=== PATIENT | male | born 1935 | race Caucasian/White ===

== ENCOUNTER 2020-04-13 08:22 | Outpatient (REF) | payer MEDICARE, SELFPAY ==
[2020-04-13 10:24] LABS: MANUAL DIFF FLAG NO
[2020-04-13 10:30] LABS: Basophils Percent Auto 0.5 % (0-2); Eosinophils Absolute Auto 0.2 X10*3/uL (0.0-0.4); Eosinophils Percent Auto 3.7 % (0-4); Hematocrit 45.6 % (42-52); Hemoglobin 15.4 g/dl (14.0-18.0); Imm Gran Abs Auto 0.01 X10*3/uL (0.00-0.03); Imm Gran Pct Auto 0.2 % (0.0-0.4); Lymphocytes Absolute Auto 1.8 X10*3/uL (1.2-4.9); Lymphocytes Percent Auto 26.8 % (20-40); Mean Corpuscular HGB Conc 33.8 g/dl (31.0-36.0); Mean Corpuscular Hemoglobin 31.5 pg (27.0-33.0); Mean Corpuscular Volume 93.3 fL (80-98); Mean Platelet Volume 10.4 fL (9.4-12.4); Monocytes Absolute Auto 0.5 X10*3/uL (0.1-1.2); Monocytes Percent Auto 7.4 % (2-11); Neutrophils Percent Auto 61.4 % (45-73); Platelet Count 168 X10*3/uL (160-400); Red Blood Count 4.89 X10*6/uL (4.60-5.80); Red Cell Distribution Width 12.2 % (11.0-16.0); White Blood Count 6.5 X10*3/uL (4.8-10.8)
[2020-04-13 11:12] LABS: Alanine Aminotransferase 17 U/L (0-40); Albumin Level 4.4 g/dL (3.5-5.0); Alkaline Phosphatase 46 U/L (39-117); Anion Gap 14 (12-20); Aspartate Amino Transferase 22 U/L (5-37); Bilirubin Total 0.8 mg/dL (0.0-1.0); Blood Urea Nitrogen 28 mg/dL (9-16); Carbon Dioxide 31 mmol/L (22-29); Chloride 103 mmol/L (96-108); Cholesterol 159 mg/dL; Estimated Glomerular Filt Rate > 60; Glucose Fasting 92 mg/dL (60-99); HDL Cholesterol 52 mg/dL; LDL Cholesterol Calculated 93 mg/dl; Potassium 3.9 mmol/L (3.3-5.1); Sodium 144 mmol/L (135-145); Triglycerides 71 mg/dL
== END 2020-04-13 08:23 | disposition home or self-care (01) ==
LOC: HO.10HDL 08:22
PROVIDERS: Visit Provider Internal Medicine
DX: Z00.00 Encounter for general adult medical examination without abnormal findings (principal); E11.9 Type 2 diabetes mellitus without complications
CPT/HCPCS: 36415; 80053; 80061; 85025

== ENCOUNTER 2021-01-17 06:20 | Outpatient (REF) | payer MEDICARE, SELFPAY ==
[2021-01-17 08:17] LABS: Cholesterol 142 mg/dL; HDL Cholesterol 55 mg/dL; LDL Cholesterol Calculated 71 mg/dl; Triglycerides 80 mg/dL
== END 2021-01-17 06:21 | disposition home or self-care (01) ==
LOC: HO.LAB 06:20
PROVIDERS: PCP Internal Medicine; Visit Provider Internal Medicine
DX: E11.9 Type 2 diabetes mellitus without complications (principal)
CPT/HCPCS: 36415; 80061

== ENCOUNTER 2021-07-17 06:49 | Outpatient (REF) | payer MEDICARE, SELFPAY ==
[2021-07-17 08:03] LABS: Cholesterol 140 mg/dL; HDL Cholesterol 46 mg/dL; LDL Cholesterol Calculated 74 mg/dl; Triglycerides 103 mg/dL
== END 2021-07-17 06:50 | disposition home or self-care (01) ==
LOC: HO.LAB 06:49
PROVIDERS: PCP Internal Medicine; Visit Provider Internal Medicine
DX: Z00.00 Encounter for general adult medical examination without abnormal findings (principal); E78.5 Hyperlipidemia, unspecified
CPT/HCPCS: 36415; 80061

== ENCOUNTER 2021-12-14 08:48 | Emergency (ER) | payer MEDICARE, SELFPAY ==
[2021-12-14] VITALS (8 sets, daily range): BP systolic 158–199; BP diastolic 69–88; PULSE 66–89; RESP 13–19; TEMP 36.1–36.4; O2SAT 93–97; BMI 25.8
--- NOTE | ~2021-12-14 | CT_ITS ---
EXAMINATION: CT HEAD WITHOUT CONTRAST CLINICAL INFORMATION: Intermittent room spinning. Dizziness. Fatigue. COMPARISON: None available. TECHNIQUE: Contiguous axial imaging was performed from the skull base to vertex without intravenous administration of contrast. This CT examination was performed using dose optimization techniques as appropriate, variously including the following: *Automated exposure control. *Adjustment of mA and/or kV according to patient size (this includes techniques or standardized protocols for targeted exams where dose is matched to indication/reason for exam; i.e. extremities or head). *Use of iterative reconstruction technique. DLP: 717 mGy-cm FINDINGS: There is no evidence of acute intracranial hemorrhage or edematous territorial infarction. Hilton-white matter differentiation is preserved. Scattered and partially confluent hypoattenuation in the periventricular and deep white matter are consistent with moderate microangiopathy. Proportional prominence of the ventricles and sulcal spaces without evidence of obstructive hydrocephalus. No abnormal mass effect or midline shift. The suprasellar cistern remains widely patent. Normal positioning of the cerebellar tonsils. No extra-axial fluid collections. No acute soft tissue or osseous abnormalities. Mild mucosal thickening of the paranasal sinuses. The mastoid air cells and middle ear cavities are clear. CT/CT head/brain wo IV con IMPRESSION: 1. No evidence of acute intracranial hemorrhage or edematous territorial infarction. 2. Moderate underlying microangiopathy and generalized cerebral volume loss.
--- NOTE | ~2021-12-14 | XR_ITS ---
EXAMINATION: XR CHEST CLINICAL INFORMATION: Fatigue COMPARISON: None TECHNIQUE: 2 views of the chest were obtained. FINDINGS: No significant abnormality is noted involving the heart, lungs, mediastinum, bony thorax or soft tissues. XR/XR chest 2V IMPRESSION: Unremarkable chest examination.
--- NOTE | 2021-12-14 08:56 | ECG_ITS ---
Test Reason : HIGH BP Blood Pressure : / mmHG Vent. Rate : 084 BPM Atrial Rate : 084 BPM P-R Int : 160 ms QRS Dur : 106 ms QT Int : 390 ms P-R-T Axes : 065 -35 081 degrees QTc Int : 460 ms Normal sinus rhythm Intra-ventricular conduction delay Left anterior fascicular block Minimal voltage criteria for LVH, may be normal variant ( R in aVL ) Abnormal ECG When compared with ECG of 12-MAR-2010 13:03, QRS duration has increased Referred By: Generic ED Physician Electronically Signed By:MEGHAN GARCIA MD
[2021-12-14 09:23] LABS: MANUAL DIFF FLAG NO
[2021-12-14 09:24] LABS: Basophils Percent Auto 0.6 % (0-2); Eosinophils Absolute Auto 0.1 X10*3/uL (0.0-0.4); Eosinophils Percent Auto 1.6 % (0-4); Hematocrit 46.8 % (42.0-52.0); Hemoglobin 15.9 g/dl (14.0-18.0); Imm Gran Abs Auto 0.02 X10*3/uL (0.00-0.03); Imm Gran Pct Auto 0.3 % (0.0-0.4); Lymphocytes Absolute Auto 1.4 X10*3/uL (1.2-4.9); Lymphocytes Percent Auto 19.7 % (20-40); Mean Corpuscular Hemoglobin 31.2 pg (27.0-33.0); Mean Corpuscular Volume 91.9 fL (80.0-98.0); Mean Platelet Volume 9.6 fL (9.4-12.4); Monocytes Absolute Auto 0.5 X10*3/uL (0.1-1.2); Monocytes Percent Auto 7.6 % (2-11); Neutrophils Absolute Auto 4.9 x10*3/uL (2.0-8.3); Neutrophils Percent Auto 70.2 % (45-73); Platelet Count 159 X10*3/uL (160-400); Red Blood Count 5.09 X10*6/uL (4.60-5.80); Red Cell Distribution Width 12.1 % (11.0-16.0)
[2021-12-14 09:37] LABS: COVID-19 Test Negative (Negative)
[2021-12-14 09:43] LABS: Alanine Aminotransferase 15 U/L (0-40); Albumin Level 4.6 g/dL (3.5-5.0); Alkaline Phosphatase 52 U/L (39-117); Anion Gap 17 (12-20); Aspartate Amino Transferase 21 U/L (5-37); Bilirubin Total 0.7 mg/dL (0.0-1.0); Blood Urea Nitrogen 20 mg/dL (9-16); Calcium 9.6 mg/dL (8.4-10.2); Carbon Dioxide 31 mmol/L (22-29); Chloride 98 mmol/L (96-108); Creatinine Clr Calc Pharmacy 47.8; Estimated Glomerular Filt Rate > 60; Glucose Random 132 mg/dL (60-115); Potassium 4.1 mmol/L (3.3-5.1); Sodium 142 mmol/L (135-145); Total Protein 7.4 g/dL (6.5-8.0)
[2021-12-14 09:49] LABS: Troponin-I High Sensitivity < 3.5 ng/L (<3.5-35.0)
--- NOTE | 2021-12-14 09:56 | ED_ITS ---
HPI - General Adult General Chief complaint: General Medical Stated complaint: high bp Time Seen by Provider: 12/14/21 09:44 Source: patient Mode of arrival: ambulatory History of Present Illness HPI narrative: 86-year-old male with a past medical history of vertigo, HLD, HTN, recent sinusitis treated with Flonase at 10 days ago, presenting to the ED complaining of generalized fatigue/weakness, malaise, and intermittent room spinning dizziness worse with position changes/bending over x days. reports patient's BP has been elevated 160's/60's and appetite has decreased. Patient states he just does not feel right. Denies headache, vision change/loss, chest pain, shortness of, abdominal pain, nausea/vomiting, recent travel, fever Onset (ago): day(s) Related Data Home Medications Medication Instructions Recorded Confirmed aspirin 81 mg tablet,delayed 81 mg PO DAILY 01/03/20 12/14/21 release fluticasone propionate 50 1 spray intranasal BID allergies 12/14/21 12/14/21 mcg/actuation nasal spray,suspension hydrochlorothiazide 25 mg tablet 1 tab PO DAILY 12/14/21 12/14/21 lovastatin 40 mg tablet 1 tab PO DAILY 12/14/21 12/14/21 Previous Rx's Medication Instructions Recorded meclizine 25 mg tablet 25 mg PO TID PRN dizziness #14 tabs 12/14/21 Allergies Allergy/AdvReac Type Severity Reaction Status Date / Time methylprednisolone Allergy Unknown HIVES Verified 07/19/21 08:18 [METHYLPREDNISOLONE] Review of Systems Review of Systems: Constitutional: No Fever, No Chills, + Fatigue, + Malaise ENT/Mouth: No Hearing loss, No Ear Pain, No Nasal Congestion, No Sinus Pain, No sore throat, No Rhinorrhea, No Swallowing Difficulty Eyes: No Eye Pain, No Swelling, No Redness, No Foreign Body, No Discharge, No Vision Changes Cardiovascular: No Chest Pain, No SOB, No Dyspnea on Exertion, No Orthopnea, No Edema, No Palpitations Respiratory: No Cough, No Sputum, No Dyspnea Gastrointestinal: No Nausea, No Vomiting, No Diarrhea, No Constipation, No Abdominal pain Genitourinary: No Dysuria, No Urinary Frequency, No Hematuria, No Flank Pain, No Urinary Flow Changes Musculoskeletal: No joint pain, No Myalgias, No Joint Swelling Skin: No Skin Lesions, No rash Neuro: + Weakness, No Numbness, No Paresthesias, No Loss of Consciousness, + Dizziness, No Headache Yes all other systems are reviewed and are negative Constitutional: Constitutional: Reports as per HPI Neurologic: Denies Abnormal speech present and Denies Sensory deficit (Neuro) FOR[facility]LY [facility], [facility] Past Medical History Attestation statement: The following information was validated with the patient. Medical History Hyperlipidemia Hypertension Lesion of right earlobe Surgical History H/O basal cell carcinoma excision H/O excision of ganglion cyst History of inguinal hernia repair Family History Family History Father CHF (congestive heart failure) Mother Lung cancer Sister No problems noted. Daughter No problems noted. Daughter No problems noted. Daughter No problems noted. Social History Social History Housing: House Alcohol intake: current Alcohol intake frequency: a few times a week Patient Tobacco Use Status: Current someday Tobacco user Tobacco use type: Cigar e-Cigarette/Vaping Use: Never Used Second Hand Smoke Exposure: No Advance Directives: Yes Advance Directives Information Provided: Yes Advance Directives on File: No Current occupational status: retired Cognitive needs: No Hearing needs: No Vision needs: No Physical Exam ED Vital Signs: Vital Signs - 24 hr 12/14/21 08:51 12/14/21 10:53 12/14/21 11:01 Temperature 96.9 F Pulse Rate 89 67 68 Respiratory Rate 17 19 Blood Pressure 185/77 H 178/81 H 182/69 H Pulse Oximetry 97 93 Oxygen Delivery Method Room Air Room Air 12/14/21 10:55 12/14/21 10:58 12/14/21 13:12 Temperature 97.5 F Pulse Rate 67 78 66 Respiratory Rate 15 Blood Pressure 171/84 H 161/86 H 199/88 H Pulse Oximetry 94 Oxygen Delivery Method Room Air 12/14/21 13:54 12/14/21 14:26 Temperature Pulse Rate 68 74 Respiratory Rate 13 13 Blood Pressure 186/80 H 158/79 H Pulse Oximetry 97 96 Oxygen Delivery Method Room Air Room Air BMI result Body Mass Index 25.8 Const General: cooperative, healthy appearing, no acute distress, alert and awake Orientation/consciousness: patient oriented x3 Limitations: no limitations HENMT Head: Yes normal to inspection and Yes atraumatic Ears: hearing grossly normal bilaterally General nose exam: Normal external nose present Face and sinus: Yes normal facial exam Eyes General: appearance normal, both eyes and all related structures EOM: EOMs intact bilaterally Neck Neck: Yes normal visual inspection and Yes no meningeal signs Resp Effort & Inspection: normal respiratory effort and no respiratory distress Auscultation: clear to auscultation bilaterally, no crackles, no rales, no rhonchi and no wheezes Cardio Rate: regular rate Heart sounds: S1 normal heart sound present and S2 normal heart sound present GI Inspection: Yes normal to inspection Palpation (GI): Soft to palpation, nontender, no guarding and not rigid General: Yes no CVA tenderness Back/Spine/Pelvis Back: no CVA tenderness Skin Rashes: no rashes Wounds: no wounds Neuro General: patient oriented x3, gait normal, tone normal, moves all extremities, no meningeal signs, no focal motor deficits and CN's II-XI intact bilaterally Cranial nerves: Yes CN's II-XII intact bilaterally, Yes Bilaterally intact EOM present and Yes Nystagmus not present Cognition (Neuro): normal cognition Speech: No Abnormal speech present Gait exam (Neuro): Normal gait present Motor exam (neuro): 5/5 motor strength present throughout, Pronator motor function not present and no tremor noted Sensory Exam: No Sensory deficit (Neuro) Coordination: [id number] test normal Romberg Test: Negative Extrem General: Yes normal to inspection and Yes no pedal edema Course Course Course Narrative: -1147--no leukocytosis. H&H stable. Labs otherwise the patient's baseline. Troponin negative -UA not infected CT head/brain wo IV con IMPRESSION: 1. No evidence of acute intracranial hemorrhage or edematous territorial infarction. 2. Moderate underlying microangiopathy and generalized cerebral volume loss. -orthostatic vital signs negative -1155--patient denies dizziness at present XR chest 2V IMPRESSION: Unremarkable chest examination. Results discussed with patient & family including worrisome signs and symptoms and strict return precautions, recommended close PCP follow-up. Discussed when to return to the emergency department. They verbalized understanding and feel safe for discharge at this time. -1325--patient's BP prior to discharge increasing, denies taking home medications today will give home medication and re-evaluate -s/p patient's home dose of HCTZ blood pressure 158/79. Stable for discharge home Medical Decision Making MDM Narrative Medical decision making narrative: 86-year-old male with a past medical history of vertigo, HLD, HTN, recent sinusitis treated with Flonase at 10 days ago, presenting to the ED complaining of generalized fatigue/weakness, malaise, and intermittent room spinning dizziness worse with position changes/bending over x days. On exam mildly hypertensive, NAD, nontoxic appearing, ambulating with steady gait, no ataxia, no focal neuro deficits. Concern for viral illness vs vertigo/BPPV vs metabolic/infectious etiologies. Low suspicion for ICH. Rule out ACS, unlikely PE. Low concern CVA/TIA Plan: EKG, labs, CXR, head CT, UA, orthostatics, IVF, re-evaluate Medical Records Medical records reviewed: Yes I reviewed the patient's medical records. Lab Data Lab results reviewed: Yes I reviewed the patient's lab results. Result diagrams: 12/14/21 09:19 12/14/21 09:19 Labs: Lab Results 12/14/21 12/14/21 12/14/21 Range/Units 09:19 09:19 09:19 WBC 7.0 (4.8-10.8) X10*3/uL RBC 5.09 (4.60-5.80) X10*6/uL Hgb 15.9 (14.0-18.0) g/dl Hct 46.8 (42.0-52.0) % MCV 91.9 (80.0-98.0) fL MCH 31.2 (27.0-33.0) pg MCHC 34.0 (31.0-36.0) g/dl RDW 12.1 (11.0-16.0) % Plt Count 159 L (160-400) X10*3/uL MPV 9.6 (9.4-12.4) fL Immature Gran % (Auto) 0.3 (0.0-0.4) % Neut % (Auto) 70.2 (45-73) % Lymph % (Auto) 19.7 L (20-40) % Harvey % (Auto) 7.6 (2-11) % Eos % (Auto) 1.6 (0-4) % Baso % (Auto) 0.6 (0-2) % Lymph # (Auto) 1.4 (1.2-4.9) X10*3/uL Harvey # (Auto) 0.5 (0.1-1.2) X10*3/uL Eos # (Auto) 0.1 (0.0-0.4) X10*3/uL Baso # (Auto) 0.0 (0.0-0.2) X10*3/uL Abs Immat Gran (auto) 0.02 (0.00-0.03) X10*3/uL Absolute Neuts (auto) 4.9 (2.0-8.3) x10*3/uL Absolute Nucleated RBC 0.000 (0.0-0.012) X10*3/uL Nucleated RBC % (auto) 0.0 (0.0-0.2) /100WBC Sodium 142 (135-145) mmol/L Potassium 4.1 (3.3-5.1) mmol/L Chloride 98 (96-108) mmol/L Carbon Dioxide 31 H (22-29) mmol/L Anion Gap 17 (12-20) BUN 20 H (9-16) mg/dL Creatinine 1.00 (0.5-1.4) mg/dL Estim Creat Clear Calc 47.8 Estimated GFR > 60 Random Glucose 132 H (60-115) mg/dL Calcium 9.6 D (8.4-10.2) mg/dL Magnesium 2.3 (1.6-2.6) mg/dL Total Bilirubin 0.7 (0.0-1.0) mg/dL AST 21 (5-37) U/L ALT 15 (0-40) U/L Alkaline Phosphatase 52 (39-117) U/L Troponin I High Sens < 3.5 (<3.5-35.0) ng/L Total Protein 7.4 (6.5-8.0) g/dL Albumin 4.6 (3.5-5.0) g/dL Urine Color Urine Appearance Urine pH (5.0-9.0) Ur Specific [place] (1.005-1.025) Urine Protein (Neg-Trace) mg/dL Urine Glucose (UA) (Negative) mg/dL Urine Ketones (Negative) mg/dL Urine Blood (Negative) Urine Nitrite (Negative) Ur Leukocyte Esterase (Negative) COVID-19 ([facility]) (Negative) COVID-19 Clin Com 12/14/21 12/14/21 Range/Units 09:19 11:06 WBC (4.8-10.8) X10*3/uL RBC (4.60-5.80) X10*6/uL Hgb (14.0-18.0) g/dl Hct (42.0-52.0) % MCV (80.0-98.0) fL MCH (27.0-33.0) pg MCHC (31.0-36.0) g/dl RDW (11.0-16.0) % Plt Count (160-400) X10*3/uL MPV (9.4-12.4) fL Immature Gran % (Auto) (0.0-0.4) % Neut % (Auto) (45-73) % Lymph % (Auto) (20-40) % Harvey % (Auto) (2-11) % Eos % (Auto) (0-4) % Baso % (Auto) (0-2) % Lymph # (Auto) (1.2-4.9) X10*3/uL Harvey # (Auto) (0.1-1.2) X10*3/uL Eos # (Auto) (0.0-0.4) X10*3/uL Baso # (Auto) (0.0-0.2) X10*3/uL Abs Immat Gran (auto) (0.00-0.03) X10*3/uL Absolute Neuts (auto) (2.0-8.3) x10*3/uL Absolute Nucleated RBC (0.0-0.012) X10*3/uL Nucleated RBC % (auto) (0.0-0.2) /100WBC Sodium (135-145) mmol/L Potassium (3.3-5.1) mmol/L Chloride (96-108) mmol/L Carbon Dioxide (22-29) mmol/L Anion Gap (12-20) BUN (9-16) mg/dL Creatinine (0.5-1.4) mg/dL Estim Creat Clear Calc Estimated GFR Random Glucose (60-115) mg/dL Calcium (8.4-10.2) mg/dL Magnesium (1.6-2.6) mg/dL Total Bilirubin (0.0-1.0) mg/dL AST (5-37) U/L ALT (0-40) U/L Alkaline Phosphatase (39-117) U/L Troponin I High Sens (<3.5-35.0) ng/L Total Protein (6.5-8.0) g/dL Albumin (3.5-5.0) g/dL Urine Color Yellow Urine Appearance Clear Urine pH 7.0 (5.0-9.0) Ur Specific [place] 1.010 (1.005-1.025) Urine Protein Negative (Neg-Trace) mg/dL Urine Glucose (UA) Negative (Negative) mg/dL Urine Ketones Negative (Negative) mg/dL Urine Blood Negative (Negative) Urine Nitrite Negative (Negative) Ur Leukocyte Esterase Negative (Negative) COVID-19 ([facility]) Negative (Negative) COVID-19 Clin Com See Note Discharge Plan Discharge Clinical Impression: Generalized weakness, HTN (hypertension), Vertigo Patient Disposition: Home, Self-Care Instructions: Heart Healthy Diet (ED), Vertigo (ED), Weakness (ED), Hypertension (ED) Additional Instructions: Your blood work and imaging studies were reassuring today in the emergency department. Please have close follow-up with your doctor. Monitor blood pressure at home. If you develop constant worsening dizziness, headache, chest pain or shortness breath return to the ED immediately Meclizine help with needed. Practice slow position changes Prescriptions: New meclizine 25 mg tablet 25 mg PO TID PRN (Reason: dizziness) Qty: 14 0RF No Action lovastatin 40 mg tablet 1 tab PO DAILY hydrochlorothiazide 25 mg tablet 1 tab PO DAILY fluticasone propionate 50 mcg/actuation spray,suspension 1 spray intranasal BID aspirin 81 mg tablet,delayed release (DR/EC) 81 mg PO DAILY Referrals: Jean Salcido MD [Primary Care Provider] - 2 days
--- OUTSIDE RECORDS SUMMARY | 2021-12-14 10:10 | XMS_ITS ---
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 ; Pain Stephane Abhay Calderón MA in right toe(s) M79.674 ; [address] Pain in left toe (s) M79.675 ; Hallux rigidus, right foot M20.2 1 ; Ingrowing nail L 60.0 and Unspecified atherosclerosis of [place] arteries of extr emities, bilateral legs I 70.203 [facility] [address] Jul, 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 ; Pain Garneredilia Calderón MA in right toe(s) M79.674 ; [address] Pain in left toe (s) M79.675 ; Hallux rigidus, right foot M20.2 1 ; Ingrowing nail L 60.0 and Unspecified atherosclerosis of [place] arteries of extr emities, bilateral legs I 70.203 [facility] [address] Apr, 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 ; Pain Garneredilia Calderón MA in right toe(s) M79.674 ; [address] Pain in left toe (s) M79.675 ; Hallux rigidus, right foot M20.2 1 ; Ingrowing nail L 60.0 and Unspecified atherosclerosis of [place] arteries of extr emities, bilateral legs I [facility] Dec, 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 ; Pain Stephane Abhay Garner, [place] in right toe(s) M79.674 ; [address] Pain in left toe (s) M79.675 ; Hallux rigidus, right foot M20.2 1 ; Ingrowing nail L 60.0 ; Unspecified atherosclerosis of [place] arteries of extr emities, bilateral legs I and Sprain of anteri or talofibular liga ment of right ankle, ini tial encounter S93.[address] [facility] Dec, Stephane Calderón, [place] 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 ; Pain Gar[place] Abhay Calderón MA in right toe(s) M79.674 ; [address] Pain in left toe (s) M79.675 ; Hallux rigidus, right foot M20.2 1 ; Ingrowing nail L 60.0 and Unspecified atherosclerosis of [place] arteries of extr emities, bilateral legs I [address] June, 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 ; Pain Stephane Abhay Calderón MA in right toe(s) M79.674 ; [address] Pain in left toe (s) M79.675 ; Hallux rigidus, right foot M20.2 1 ; Ingrowing nail L 60.0 and Unspecified atherosclerosis of [place] arteries of extr emities, bilateral legs I [address] Apr, 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 ; Pain Gar[place] Abhay Calderón MA in right toe(s) M79.674 ; [address] Pain in left toe (s) M79.675 ; Hallux rigidus, right foot M20.2 1 ; Ingrowing nail L 60.0 and Unspecified atherosclerosis of [place] arteries of extr emities, bilateral legs I [address] Dec, 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 ; Pain [place]phane [place] in right toe(s) M79.674 ; [address] Pain in left toe (s) M79.675 ; Hallux rigidus, right foot M20.2 1 ; Ingrowing nail L 60.0 and Unspecified atherosclerosis of [place] arteries of extr emities, bilateral legs I 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 ; Pain [place] in right toe(s) M79.674 ; [address] Pain in left toe (s) M79.675 ; Hallux rigidus, right foot M20.2 1 ; Ingrowing nail L 60.0 and Unspecified atherosclerosis of [place] arteries of extr emities, bilateral legs I [address] June, 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 ; Pain [place]phane [place] in right toe(s) M79.674 ; [address] Pain in left toe (s) M79.675 ; Hallux rigidus, right foot M20.2 1 ; Ingrowing nail L 60.0 and Unspecified atherosclerosis of [place] arteries of extr emities, bilateral legs I [address] Apr, 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 ; Pain [place] in right toe(s) M79.674 ; [address] Pain in left toe (s) M79.675 ; Hallux rigidus, right foot M20.2 1 ; Ingrowing nail L 60.0 and Unspecified atherosclerosis of [place] arteries of extr emities, bilateral legs I [address] Dec, 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 ; Pain Stephane [place] in right toe(s) M79.674 ; [address] Pain in left toe (s) M79.675 ; Hallux rigidus, right foot M20.2 1 ; Ingrowing nail L 60.0 and Unspecified atherosclerosis of [place] arteries of extr emities, bilateral legs I 70. 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 ; Pain Stephane Abhay Calderón, MA in right toe(s) M79.674 ; [address] Pain in left toe (s) M79.675 ; Hallux rigidus, right foot M20.2 1 ; Ingrowing nail L 60.0 and Unspecified atherosclerosis of [place] arteries of extr emities, bilateral legs I 70. 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 [address] Apr, 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 ; Pain Stephane Abhay Calderón, MA in right toe(s) M79.674 ; [address] Pain in left toe (s) M79.675 ; Hallux rigidus, right foot M20.2 1 ; Ingrowing nail L 60.0 and Unspecified atherosclerosis of [place] arteries of extr emities, bilateral legs I [address] Dec, 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 ; Pain Stephane Abhay Calderón, [place] in right toe(s) M79.674 ; [address] Pain in left toe (s) M79.675 ; Hallux rigidus, right foot M20.2 1 ; Ingrowing nail L 60.0 and Unspecified atherosclerosis of [place] arteries of extr emities, bilateral legs I 70. 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 ; Pain Garneredilia Calderón MA in right toe(s) M79.674 ; [address] Pain in left toe (s) M79.675 ; Hallux rigidus, right foot M20.2 1 ; Ingrowing nail L 60.0 and Unspecified atherosclerosis of [place] arteries of extr emities, bilateral legs I 70.[address] Apr, 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 ; Pain Garneredilia Calderón MA in right toe(s) M79.674 ; [address] Pain in left toe (s) M79.675 ; Hallux rigidus, right foot M20.2 1 ; Ingrowing nail L 60.0 and Unspecified atherosclerosis of [place] arteries of extr emities, bilateral legs I 70.[address] Dec, 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 ; Pain Garneredilia Calderón MA in right toe(s) M79.674 ; [address] Pain in left toe (s) M79.675 ; Hallux rigidus, right foot M20.2 1 and Ingrowing nail L 60.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 ; Pain Stephane Calderón MA in right toe(s) M79.674 ; [address] Pain in left toe (s) M79.675 and Stone ux rigidus, right f oot M20.[address] June, 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 ; Pain Stephaneedilia Calderón MA in right toe(s) M79.674 ; [address] Pain in left toe (s) M79.675 and Stone ux rigidus, right f oot M20.[address] Apr, 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 ; Pain Stephaneedilia Calderón MA in right toe(s) M79.674 ; [address] Pain in left toe (s) M79.675 and Stone ux rigidus, right f oot M20.[address] Dec, 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 ; Stephane Calderón [place] Ingrowing nail L60.0 ; [address] Pain in right to e(s) M79.674 ; Pain i n left toe(s) M79.675 a nd Hallux rigidus, right f oot M20.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 ; Pain Stephane Calderón MA in right toe(s) M79.674 ; [address] Pain in left toe (s) M79.675 and Stone ux rigidus, right f oot M20.[address] June, Ing rowing nail L60.0 [place] [address] Mar, Luis n in unspecified foot Stephane Calderón [place] M79.673 ; Ingro wing nail [address] L60.0 ; Hallux v algus (acquired), 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 ; Hallux rigidus, right foot M20.2 1 ; Primary osteoart hritis, 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 and Prim hector osteoarthritis, 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 [facility] [address] Nov, Ing rowing nail L60.0 [place] [address] [facility] [address] [facility] [address] Nov, [place] [address] [facility] Oct, [place] [address] Aug, Ing rowing Nail 703.0 [place] [address] May, Ing rowing Nail 703.0 [place] [address] [facility] [address] Mar, Ing rowing Nail 703.0 [place] [address] [facility] [address] Nov, Ing rowing Nail 703.0 [place] [address] [facility] [address] Aug, Ing rowing Nail 703.0 ; [place], [place] Pain in Limb 72 9.5 ; [address] Neuralgia - Neur itis 729.2 and Sprain, Foot 845.10 [facility] [address] June, Luis n in Limb 729.5 ; [place], [place] Neuralgia - Narcisa ritis 729.2 [address] and Sprain, Foot 845.10 [facility] [address] Apr, [place] [address] [facility] [address] Apr, Ing rowing Nail 703.0 [place] [address] [facility] [address] Jan, Ing rowing Nail 703.0 [place] [address] [facility] [address] Dec, [place] [address] [facility] [address] Sep, Ing rowing Nail 703.0 [place] [address] [facility] [address] June, Ing rowing Nail 703.[address] [place] [address] [facility] [address] Apr, [place] [address] [facility] [address] Apr, Ing rowing Nail 703.[address] [place] [address] [facility] [address] Dec, Ing rowing Nail 703.0 [place] [address] [facility] [address] Dec, [place] [address] [facility] Sep, Ing rowing Nail 703.0 [place] [address] [facility] [address] June, Ing rowing Nail 703.0 [place] [address] Apr, Ing rowing Nail 703.0 [place] [address] Mar, [place] [address] Nov, Ing rowing Nail 703.[address] [place] [address] IMMUNIZATIONS Vaccine Route Administration Date Status COVID-19 Pfizer BioNTech Vaccine Unknown Dec 26, 2020 Administered COVID-19 Pfizer BioNTech Vaccine Unknown Apr 03, 2020 Administered SOCIAL HISTORY Qualifiers Date Former Smoker REASON FOR REFERRAL Referring Provider First Name Kian Referring Provider Last Name Aristides Referred [facility] Referred Provider Sawyer Oliver Referred Address [address] [place], [place],[address] Referring Provider First Name Jean Referring Provider Last Name Loly Referred [facility] Referred Provider Sawyer Oliver Referred Address [address] [place], [place],[address] Referred Provider Specialty Podiatry Referring Provider First Name Jean Referring Provider Last Name Loly Referred [facility] Referred Provider Sawyer Oliver Referred Address [address] [place] [phone] Referred Provider Specialty Podiatry Reason toenail deformities Referred Provider Sawyer Oliver Referred Provider Specialty Podiatry Referral Appointment Date 2014-06-12 Referring Provider First Name Jean Referring Provider Last Name Loly Referred [facility] Referred Provider Sawyer Oliver Referred Address [address], [place],[address] Referred Provider Specialty Podiatry Referring Provider First Name Jean Referring Provider Last Name Loly Referred [facility] Referred Provider Sawyer Oliver Referred Address [address], [place],[address] Referred Provider Specialty Podiatry FUNCTIONAL STATUS PLAN OF CARE Activity Details Follow Up 3 Months Reason: Future Appointment Provider Name:Sawyer Oliver, 2022-02-05 09:15:00 AM, [address] [place] [address] [place], [address], Referral [address] [place] [address], Diann SantosKATHIA yeboah, [phone], [email or web address], [facility] -[phone] Referral Sawyer Oliver, [address] [place] [address], [place], [address], [email or web address], Referral [address] [place] [address], Michellezhane cindy KATHIA Calderón, [address], [email or web address], [facility] -[phone] Referral 2014-06-12, toenail deformit ies, Sawyer Oliver Referral [address] [place] [address], [place], [address], [email or web address], [facility] -[phone] [place] [address], Michellezhane cindy KATHIA Calderón, [address], [email or web address], [facility] -[phone] Pending Test X ray : Foot, left 3V Future/Pending Procedure 44932-YHHH SKIN LESIONS, OVE R 4 Future/Pending Procedure 71050-GNHU SKIN LESIONS, OVE R 4 Future/Pending Procedure 44601-BHSX SKIN LESIONS, OVE R 4 Future/Pending Procedure 13466-AVVT SKIN LESIONS, OVE R 4 Future/Pending Procedure 62721-QVOX SKIN LESIONS, OVE R 4 Future/Pending Procedure 47504-QIKE SKIN LESIONS, OVE R 4 Future/Pending Procedure 31059-QCMZ SKIN LESIONS, OVE R 4 Future/Pending Procedure 47577-OJSY SKIN LESIONS, OVE R 4 Future/Pending Procedure 60440-PKDK SKIN LESIONS, OVE R 4 Future/Pending Procedure 68057-DPEF SKIN LESIONS, OVE R 4 Future/Pending Procedure 33220-DHCW SKIN LESIONS, OVE R 4 Future/Pending Procedure 25504-FPMS SKIN LESIONS, OVE R 4 Future/Pending Procedure 74071-QKTR SKIN LESIONS, OVE R 4 Future/Pending Procedure 72268-TQJZJHT NAIL, 6 OR MOR E Future/Pending Procedure 65839-VIKS SKIN LESIONS, OVE R 4 Future/Pending Procedure 42277-RMIMART NAIL, 6 OR MOR E Future/Pending Procedure 53988-HFVF SKIN LESIONS, OVE R 4 Future/Pending Procedure 40840-DLQOHZX NAIL, 6 OR MOR E Future/Pending Procedure 20130-UOCO SKIN LESIONS, OVE R 4 Future/Pending Procedure 34947-SCGELPU NAIL, 6 OR MOR E Future/Pending Procedure 74305-EYRL SKIN LESIONS, OVE R 4 Future/Pending Procedure 69771-AXOHFUH NAIL, 6 OR MOR E Future/Pending Procedure 77703-LCWVQVG NAIL, 6 OR MOR E Future/Pending Procedure 43089-ORJVBJM NAIL, 6 OR MOR E Future/Pending Procedure 41526-YSUOKCE NAIL, 6 OR MOR E Future/Pending Procedure 29349-Xwqzkfrm Plate Future/Pending Procedure 88137-SYRUDPJ NAIL, 6 OR MOR E Future/Pending Procedure 83987-Mavfzhnw Plate Future/Pending Procedure 35642-Gqtjkagc Plate Future/Pending Procedure 56267-Hthqkrep Plate Future/Pending Procedure 48680-Nxtdbukd Plate Future/Pending Procedure 69478-Svlwbiam Plate Future/Pending Procedure 51552-Pgcyiyqu Plate Future/Pending Procedure 94441-Wsgrtuiv Plate Each Ad ditional Future/Pending Procedure 47932-Olcggwsk Plate Future/Pending Procedure 12080-Vbiutohx Plate Future/Pending Procedure 76693-Dlukahlb Plate Future/Pending Procedure 48431-Aoyizkku Plate Future/Pending Procedure 78778-Nugzfpqz Plate Future/Pending Procedure 91121-Oblfaehr Plate Future/Pending Procedure 51447-Yvjjepye Plate Future/Pending Procedure 82718-Uzjnhhxe Plate Future/Pending Procedure 40877-Ybrgjicv Plate Future/Pending Procedure 56083-Rnvdsjbs Plate Future/Pending Procedure 06008-Fyevqkui Plate Future/Pending Procedure 22539-Lvegzsds Plate VITAL SIGNS Height 5 ft 5.5 in in 2021-11-06 Weight 162 lbs 2021-11-06 BMI 26.55 kg/m2 2021-11-06 Heart Rate 68 /min 2019-04-13 Temperature 97.7 degrees Fahrenheit 2020-07-25 Blood pressure systolic 120 mm Hg 2021-11-06 Blood pressure diastolic 70 mm Hg 2021-11-06 MEDICATIONS Medication Instructions Dosage Frequency Start End Duration Statu s Date Date Lovastatin 40 MG as Active directed Triamcinolone Not-Taki Acetonide 0.5 % ng Amoxicillin 250 MG Not-T rolando ng hydroCHLOROthiazide 25 as A ctive MG directed Cyclobenzaprine HCl 10 N ot-Taki MG ng Aspirin 81mg Active PROCEDURES Procedure Date Ordered Result Body Site Avulsion Plate Each Additional Mar 08, 2014 DEBRIDE NAIL, 6 OR MORE May 01, 2021 TRIM SKIN LESIONS, OVER 4 Apr 15, 2017 DEBRIDE NAIL, 6 OR MORE Oct 24, 2020 DEBRIDE NAIL, 6 OR MORE Jan 09, 2021 Avulsion Plate Jan 02, 2016 DEBRIDE NAIL, 6 OR MORE Oct 11, 2018 DEBRIDE NAIL, 6 OR MORE July 12, 2018 DEBRIDE NAIL, 6 OR MORE Oct 15, 2017 DEBRIDE NAIL, 6 OR MORE Jan 16, 2020 TRIM SKIN LESIONS, OVER 4 Jan 10, 2019 DEBRIDE NAIL, 6 OR MORE Oct 01, 2015 DEBRIDE NAIL, 6 OR MORE Apr 25, 2020 TRIM SKIN LESIONS, OVER 4 Apr 12, 2018 Avulsion Plate June 12, 2014 DEBRIDE NAIL, 6 OR MORE July 25, 2020 TRIM SKIN LESIONS, OVER 4 Jan 13, 2018 Avulsion Plate Jan 26, 2012 DEBRIDE NAIL, 6 OR MORE May 01, 2021 TRIM SKIN LESIONS, OVER 4 July 15, 2017 DEBRIDE NAIL, 6 OR MORE Jan 10, 2019 DEBRIDE NAIL, 6 OR MORE Apr 13, 2019 DEBRIDE NAIL, 6 OR MORE July 18, 2019 DEBRIDE NAIL, 6 OR MORE Oct 17, 2019 Avulsion Plate Mar 08, 2014 X-RAY EXAM OF LEFT FOOT 3V July 14, 2013 Avulsion Plate September 01, 2013 Avulsion Plate September 11, 2014 Avulsion Plate Dec 07, 2013 TRIM SKIN LESIONS, OVER 4 August 07, 2021 DEBRIDE NAIL, 6 OR MORE August 07, 2021 TRIM SKIN LESIONS, OVER 4 Nov 06, 2021 TRIM SKIN LESIONS, OVER 4 Jan 09, 2021 TRIM SKIN LESIONS, OVER 4 Oct 15, 2017 Avulsion Plate Jan 31, 2013 Avulsion Plate May 23, 2013 Avulsion Plate Dec 21, 2014 DEBRIDE NAIL, 6 OR MORE Jan 14, 2017 Avulsion Plate Oct 20, 2011 Avulsion Plate Apr 26, 2012 Avulsion Plate July 19, 2012 Avulsion Plate Oct 25, 2012 DEBRIDE NAIL, 6 OR MORE Nov 06, 2021 Avulsion Plate Apr 16, 2011 Avulsion Plate July 16, 2011 Avulsion Plate Dec 23, 2010 TRIM SKIN LESIONS, OVER 4 July 18, 2019 TRIM SKIN LESIONS, OVER 4 Apr 13, 2019 TRIM SKIN LESIONS, OVER 4 July 12, 2018 DEBRIDE NAIL, OR MORE July 15, 2017 TRIM SKIN LESIONS, OVER 4 May 01, 2021 DEBRIDE NAIL, 6 OR MORE Jan 13, 2018 TRIM SKIN LESIONS, OVER 4 Oct 24, 2020 DEBRIDE NAIL, 6 OR MORE Apr 12, 2018 TRIM SKIN LESIONS, OVER 4 Jan 16, 2020 TRIM SKIN LESIONS, OVER 4 Oct 17, 2019 DEBRIDE NAIL, 6 OR MORE Apr 14, 2016 DEBRIDE NAIL, OR MORE July 14, 2016 TRIM SKIN LESIONS, OVER 4 Oct 11, 2018 DEBRIDE NAIL, OR MORE Oct 15, 2016 TRIM SKIN LESIONS, OVER 4 July 25, 2020 DEBRIDE NAIL, 6 OR MORE Apr 15, 2017 TRIM SKIN LESIONS, OVER 4 Apr 25, 2020 Avulsion Plate Mar 21, 2015 Avulsion Plate July 02, 2015 DEBRIDE NAIL, 6 OR MORE Jan 02, 2016 RESULTS No Results REASON FOR VISIT Insurance Providers [facility] Member Patient Patient Patient Patient Patient Subscriber Subscriber Subscriber Group Insurance Plan Plan Plan Plan ID Relationship Address Phone Name Date of ID Name Date of No Type Insurance Insurance Insurance Coverage to Subscriber Address Phone Name Dates Medicare National [id number] Medicare self Konstantin [id number] Govt Sv [address] [employer] [address] [place] [address] Med[employer] Blue [phone] Med[employer] Blue self [id number] Shield [id number] Shield Yelle [address] [facility] [address] [employer] [phone] [employer] self [place] [phone] [id number] HMO Yelle 0 [facility] [address] MEDICAL (GENERAL) HISTORY Type Description Date Medical History hypertension Medical History Basal cell carcinoma Medical History Squamous Cell Carcinoma Medical History Hyperlipidemia Surgical History hernia repair 2010 Surgical History ganglion cyst Surgical History basal cell carcinoma 2005 Surgical History Squamous cell 2006 Hospitalization History [facility] – [place], [place]- cut finger- stiches 01/18
[2021-12-14] MEDS: Meclizine HCl 25 MG TABLET PO (10:19)
[2021-12-14] MEDS: 0.9 % Sodium Chloride 1,000 ML 999 ML IV (10:20)
[2021-12-14 10:29] LABS: Magnesium 2.3 mg/dL (1.6-2.6)
[2021-12-14 11:20] LABS: Appearance Urine Clear; Color Urine Yellow; Glucose Urine UA Negative (Negative); Leukocyte Esterase Urine Negative (Negative); Nitrite Urine Negative (Negative); Urine Blood Negative (Negative); Urine Ketones Negative (Negative); Urine Protein Negative (Neg-Trace)
--- NOTE | 2021-12-14 13:28 | PC.NURSE ---
Brit aware of patients blood pressure
[2021-12-14] MEDS: hydroCHLOROthiazide 25 MG TABLET PO (13:55)
== END 2021-12-14 14:50 | disposition home or self-care (01) ==
PROVIDERS: Physician Assistant; Emergency Provider Emergency Medicine; PCP Internal Medicine
DX: R53.1 Weakness (principal); I10 Essential (primary) hypertension; R42 Dizziness and giddiness; Z20.822 Contact with and (suspected) exposure to COVID-19; E78.5 Hyperlipidemia, unspecified; Z79.82 Long term (current) use of aspirin; Z79.899 Other long term (current) drug therapy; Z79.02 Long term (current) use of antithrombotics/antiplatelets; F17.200 Nicotine dependence, unspecified, uncomplicated
CPT/HCPCS: 36415; 70450; 71046; 80053; 81003; 83735; 84484; 85025; 87635; 93005; 96360; 96361; 99284

== ENCOUNTER 2022-01-01 06:22 | Outpatient (REF) | payer MEDICARE, SELFPAY ==
[2022-01-01 06:29] LABS: MANUAL DIFF FLAG NO
[2022-01-01 07:23] LABS: Basophils Percent Auto 0.4 % (0-2); Eosinophils Absolute Auto 0.5 X10*3/uL (0.0-0.4); Eosinophils Percent Auto 5.8 % (0-4); Hematocrit 45.9 % (42.0-52.0); Hemoglobin 15.4 g/dl (14.0-18.0); Imm Gran Abs Auto 0.03 X10*3/uL (0.00-0.03); Imm Gran Pct Auto 0.4 % (0.0-0.4); Lymphocytes Absolute Auto 2.2 X10*3/uL (1.2-4.9); Lymphocytes Percent Auto 28.7 % (20-40); Mean Corpuscular HGB Conc 33.6 g/dl (31.0-36.0); Mean Corpuscular Hemoglobin 31.2 pg (27.0-33.0); Mean Corpuscular Volume 93.1 fL (80.0-98.0); Monocytes Absolute Auto 0.6 X10*3/uL (0.1-1.2); Monocytes Percent Auto 7.8 % (2-11); Neutrophils Absolute Auto 4.5 x10*3/uL (2.0-8.3); Neutrophils Percent Auto 56.9 % (45-73); Platelet Count 183 X10*3/uL (160-400); Red Blood Count 4.93 X10*6/uL (4.60-5.80); Red Cell Distribution Width 12.2 % (11.0-16.0); White Blood Count 7.8 X10*3/uL (4.8-10.8)
[2022-01-01 07:51] LABS: Alanine Aminotransferase 18 U/L (0-40); Albumin Level 4.5 g/dL (3.5-5.0); Alkaline Phosphatase 53 U/L (39-117); Anion Gap 17 (12-20); Aspartate Amino Transferase 24 U/L (5-37); Bilirubin Total 0.6 mg/dL (0.0-1.0); Blood Urea Nitrogen 19 mg/dL (9-16); Calcium 9.6 mg/dL (8.4-10.2); Carbon Dioxide 30 mmol/L (22-29); Chloride 100 mmol/L (96-108); Cholesterol 162 mg/dL; Estimated Glomerular Filt Rate > 60; Glucose Fasting 87 mg/dL (60-99); HDL Cholesterol 54 mg/dL; LDL Cholesterol Calculated 91 mg/dl; Potassium 4.1 mmol/L (3.3-5.1); Sodium 143 mmol/L (135-145); Total Protein 7.2 g/dL (6.5-8.0); Triglycerides 88 mg/dL
== END 2022-01-01 06:23 | disposition home or self-care (01) ==
LOC: HO.LAB 06:22
PROVIDERS: PCP Internal Medicine; Visit Provider Internal Medicine
DX: Z00.00 Encounter for general adult medical examination without abnormal findings (principal); Z13.0 Encounter for screening for diseases of the blood and blood-forming organs and certain disorders involving the immune mechanism
CPT/HCPCS: 36415; 80053; 80061; 85025

== ENCOUNTER 2022-05-06 07:03 | Outpatient (REF) | payer MEDICARE, SELFPAY ==
[2022-05-06 07:09] LABS: MANUAL DIFF FLAG NO
[2022-05-06 07:47] LABS: Basophils Percent Auto 0.4 % (0-2); Eosinophils Absolute Auto 0.3 X10*3/uL (0.0-0.4); Eosinophils Percent Auto 4.6 % (0-4); Hematocrit 48.1 % (42.0-52.0); Hemoglobin 16.1 g/dl (14.0-18.0); Imm Gran Abs Auto 0.02 X10*3/uL (0.00-0.03); Imm Gran Pct Auto 0.3 % (0.0-0.4); Lymphocytes Absolute Auto 2.2 X10*3/uL (1.2-4.9); Lymphocytes Percent Auto 29.9 % (20-40); Mean Corpuscular HGB Conc 33.5 g/dl (31.0-36.0); Mean Corpuscular Volume 92.7 fL (80.0-98.0); Mean Platelet Volume 9.8 fL (9.4-12.4); Monocytes Absolute Auto 0.7 X10*3/uL (0.1-1.2); Monocytes Percent Auto 9.3 % (2-11); Neutrophils Percent Auto 55.5 % (45-73); Platelet Count 163 X10*3/uL (160-400); Red Blood Count 5.19 X10*6/uL (4.60-5.80); Red Cell Distribution Width 12.6 % (11.0-16.0); White Blood Count 7.2 X10*3/uL (4.8-10.8)
[2022-05-06 08:15] LABS: Alanine Aminotransferase 16 U/L (0-40); Albumin Level 4.5 g/dL (3.5-5.0); Alkaline Phosphatase 46 U/L (39-117); Anion Gap 13 (12-20); Aspartate Amino Transferase 22 U/L (5-37); Bilirubin Total 1.1 mg/dL (0.0-1.0); Blood Urea Nitrogen 20 mg/dL (9-16); Calcium 9.5 mg/dL (8.4-10.2); Carbon Dioxide 32 mmol/L (22-29); Chloride 101 mmol/L (96-108); Cholesterol 161 mg/dL; Estimated Glomerular Filt Rate > 60; Glucose Fasting 94 mg/dL (60-99); HDL Cholesterol 61 mg/dL; LDL Cholesterol Calculated 82 mg/dl; Potassium 4.1 mmol/L (3.3-5.1); Sodium 142 mmol/L (135-145); Triglycerides 91 mg/dL
== END 2022-05-06 07:04 | disposition home or self-care (01) ==
LOC: HO.LAB 07:03
PROVIDERS: PCP Internal Medicine; Visit Provider Internal Medicine
DX: Z13.0 Encounter for screening for diseases of the blood and blood-forming organs and certain disorders involving the immune mechanism (principal); E78.5 Hyperlipidemia, unspecified; I10 Essential (primary) hypertension
CPT/HCPCS: 36415; 80053; 80061; 85025

== ENCOUNTER 2022-09-08 06:53 | Outpatient (REF) | payer MEDICARE, SELFPAY ==
[2022-09-08 08:00] LABS: Alanine Aminotransferase 15 U/L (0-40); Albumin Level 4.3 g/dL (3.5-5.0); Alkaline Phosphatase 52 U/L (39-117); Anion Gap 12 (12-20); Aspartate Amino Transferase 19 U/L (5-37); Bilirubin Total 0.9 mg/dL (0.0-1.0); Blood Urea Nitrogen 21 mg/dL (9-16); Calcium 9.5 mg/dL (8.4-10.2); Carbon Dioxide 33 mmol/L (22-29); Chloride 102 mmol/L (96-108); Cholesterol 140 mg/dL; Estimated Glomerular Filt Rate > 60; Glucose Fasting 93 mg/dL (60-99); HDL Cholesterol 58 mg/dL; LDL Cholesterol Calculated 72 mg/dl; Potassium 3.6 mmol/L (3.3-5.1); Sodium 143 mmol/L (135-145); Triglycerides 51 mg/dL
== END 2022-09-08 06:54 | disposition home or self-care (01) ==
LOC: HO.LAB 06:53
PROVIDERS: PCP Internal Medicine; Visit Provider Internal Medicine
DX: E78.5 Hyperlipidemia, unspecified (principal); N28.9 Disorder of kidney and ureter, unspecified; D64.9 Anemia, unspecified
CPT/HCPCS: 36415; 80053; 80061; 85025

== ENCOUNTER 2022-09-10 11:24 | Outpatient (AMB) | payer MEDICARE, SELFPAY ==
[2022-09-10 11:28] VITALS: BP 132/74; PULSE 67; O2SAT 97; BMI 25.1
--- NOTE | 2022-09-10 11:28 | MHC.PC.OV ---
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: No Accompanied by: Self / Same As Patient Allergies methylprednisolone [METHYLPREDNISOLONE] Allergy (Unknown, Verified 09/10/22 11:29) HIVES Medication List - Last Reconciled 09/10/22 by Jean Salcido MD aspirin 81 mg PO DAILY hydrochlorothiazide 25 mg PO DAILY lovastatin 40 mg PO DAILY Tobacco use date assessed: 09/10/22 Fall risk assessment: No Falls in past year Last assessed Fall Risk: 09/10/22 Dental Screening Dental Screen Date: 09/10/22 Did you have a dental visit in the last 12 months?: Yes Did you have a dental problem in the last 6 months where you did not have access to dental care?: No Was dental information given to patient?: Patient has dentist HPI follow up HPI Details HTN and hyperlipidemia on Rx; doing well [facility] Medical History Hyperlipidemia Hypertension Lesion of right earlobe Surgical History H/O basal cell carcinoma excision H/O excision of ganglion cyst History of inguinal hernia repair Family History Father CHF (congestive heart failure) Mother Lung cancer Sister No problems noted. Daughter No problems noted. Daughter No problems noted. Daughter No problems noted. Social History Housing: House Alcohol intake: current Alcohol intake frequency: a few times a week Patient Tobacco Use Status: Current someday Tobacco user Tobacco use type: Cigar e-Cigarette/Vaping Use: Never Used Second Hand Smoke Exposure: No service: No Current occupational status: retired Cognitive needs: No Hearing needs: Yes (hearing aide) Vision needs: Yes (glasses) Questionnaire PHQ-9 Over the last 2 weeks, how often have you been bothered by any of the following problems? 1. Little interest or pleasure in doing things: not at all 2. Feeling down, depressed, or hopeless: not at all 3. Trouble falling or staying asleep, or sleeping too much: not at all 4. Feeling tired or having little energy: not at all 5. Poor appetite or overeating: not at all 6. Feeling bad about yourself - or that you are a failure or have let yourself or your family down: not at all 7. Trouble concentrating on things, such as reading the newspaper or watching television: not at all 8. Moving or speaking so slowly that other people could have noticed. Or the opposite - being so fidgety or restless that you have been moving around a lot more than usual: not at all 9. Thoughts that you would be better off or of hurting yourself in some way: not at all Total score: 0 Depression Screening Interpretation: Negative 54478 - PHQ-9 Billing: Yes Source: Developed by Drs. Barney Jon, Deloris Johnson, Brock Hdz and colleagues, with an educational annamaria from [employer]. Thrive Questionnaire Date Thrive assessed: 09/10/22 I am a: Patient What is your living situation today?: I have a steady place to live Within the past 12 months, did the food you bought not last and you didn't have the money to get more?: Never true Within the past 12 months, did you worry whether your food would run out before you got money to buy more?: Never true Do you have trouble paying for medicines?: No Do you have trouble getting transportation to medical appointments?: No Do you have trouble paying your heating and electricity bill?: No Do you have trouble taking care of your child, family member or friend?: No Do you have trouble with day-to-day activities such as bathing, preparing meals, shopping, managing finances, etc.?: No Are you currently unemployed and looking for a job?: No Are you interested in more education?: No Please select the resources that you would like help with: None Currently or been in a relationship where the following occur: no concerns reported AUDIT C Alcohol Use Questionnaire (AUDIT-C) 1. How often do you have a drink containing alcohol?: Monthly or less 2. How many drinks containing alcohol do you have on a typical day when you are drinking?: 1 or 2 3. How often do you have six or more drinks on one occasion?: Never Total Score: 1 Score Reviewed/Action Taken: No MOUSTAPHA-7 AMB Questionnaire MOUSTAPHA-7 Date MOUSTAPHA - 7 assessed: 09/10/22 Feeling nervous, anxious, or on edge: 0 = Not at all Not being able to stop or control worryin = Not at all Worrying too much about different things: 0 = Not at all Trouble relaxin = Not at all Being so restless that it is hard to sit still: 0 = Not at all Becoming easily annoyed or irritable: 0 = Not at all Feeling afraid as if something awful might happen: 0 = Not at all Total MOUSTAPHA-7 score (0-4 normal; 5-9 mild; 10-14 moderate; 15-21 severe): 0 Source: Developed by Drs. Barney Jon, Deloris Johnson, Brock Hdz and colleagues, with an educational annamaria from [employer]. MOUSTAPHA-7 Assessment Billing MOUSTAPHA-7 Assessment Tool: MOUSTAPHA-7 Assessment 55324 Review of Systems Const Denies chills, Denies headache(s) and Denies weight loss ENT Denies headache(s) Card Denies chest pain, Denies syncope, Denies irregular heart rhythm and Denies dyspnea Resp Denies chest congestion, Denies cough and Denies dyspnea GI Denies abdominal pain, Denies change in stool character, Denies nausea and Denies vomiting Musc Denies deformity and Denies joint swelling Neuro Denies syncope and Denies headache(s) Physical exam (Primary Care) Vital Signs: Last Vital Signs Pulse 67 09/10/22 11:28 BP 132/74 09/10/22 11:28 Pulse Ox 97 09/10/22 11:28 Oxygen Delivery Method Room Air 09/10/22 11:28 BMI result Body Mass Index 25.1 Tobacco/Smoking Status: Tobacco use Status Tobacco use date assessed 09/10/22 09/10/22 11:34 Patient Tobacco Use Status Current someday Tobacco 09/10/22 11:34 Tobacco use type Cigar 09/10/22 11:34 e-Cigarette/Vaping Use Never Used 09/10/22 11:34 Are you ready to quit: No Number of minutes spent counselin CPT code: 41785 - 4-10 Minutes PHQ-9: PHQ-9 Score PHQ-9: Total score 0 09/10/22 11:34 Depression Screening Interpretation: Negative Thrive Assessment: Date of Thrive Assessment Date Thrive assessed 09/10/22 09/10/22 11:34 Currently or been in a relationship where the following occur: no concerns reported Const General: cooperative and healthy appearing Resp Auscultation: clear to auscultation bilaterally Cardio Jugular venous distension: no JVD Palpation: normal PMI Rate: regular rate and bradycardic Rhythm: regular rhythm GI Inspection: Yes normal to inspection Assessment and Plan Assessment & Plan (1) Hypertension: Code(s): I10 - Essential (primary) hypertension Plan: stable; same rx (2) Hyperlipidemia: Code(s): E78.5 - Hyperlipidemia, unspecified Plan: stable; same rx Orders: Referrals Dermatology Referral R22.9 - Localized swelling, mass and lump, unspecified Coding Level of Care Code Est Pt Level 3 (55105) Diagnoses Hypertension I10 Hyperlipidemia E78.5 Additional Codes MOUSTAPHA-7 Assessment Billing - MOUSTAPHA-7 Assessment Tool: MOUSTAPHA-7 Assessment 13405 ([id number]) Vital Signs *Quality* - CPT code: 02235 - 4-10 Minutes ([id number])
== END 2022-09-10 11:53 | disposition home or self-care (01) ==
PROVIDERS: Visit Provider Internal Medicine
DX: I10 Essential (primary) hypertension (principal); E78.5 Hyperlipidemia, unspecified
CPT/HCPCS: 99213

== ENCOUNTER 2022-09-29 14:15 | Outpatient (AMB) | payer MEDICARE, SELFPAY ==
--- NOTE | 2022-09-29 14:20 | MHC.PC.OV ---
Vital Signs 09/29/22 14:22 Height 5 ft 6 in Weight 152 lb 6 oz BMI 24.6 BP 120/68 Blood Pressure Location Lt brachial Position Sitting Pulse 72 Pulse Source Pulse Oximeter Pulse Oximetry (%) 97 Oxygen Delivery Method Room Air Intake Visit Reasons: Dr. Cornejo//Lt&Rt eye cataract Intake Note: Patient is here for a Pre-op for cataract surgery scheduled with Dr Suarez on 10/06/22 and 10/20/22. 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: Not Required per policy Accompanied by: Self / Same As Patient Allergies methylprednisolone [METHYLPREDNISOLONE] Allergy (Unknown, Verified 09/29/22 14:22) HIVES Medication List - Last Reconciled 09/29/22 by Jean Salcido MD aspirin 81 mg PO DAILY hydrochlorothiazide 25 mg PO DAILY lovastatin 40 mg PO DAILY Tobacco use date assessed: 09/29/22 Fall risk assessment: No Falls in past year Last assessed Fall Risk: 09/29/22 Dental Screening Dental Screen Date: 09/29/22 Did you have a dental visit in the last 12 months?: Yes Did you have a dental problem in the last 6 months where you did not have access to dental care?: No Was dental information given to patient?: Patient has dentist HPI Dr. Cornejo//Lt&Rt eye cataract HPI Details having bilat cataracts repaired; HTN and hyperlipidemia controlled; no history of CAD [facility] Medical History Hyperlipidemia Hypertension Lesion of right earlobe Surgical History H/O basal cell carcinoma excision H/O excision of ganglion cyst History of inguinal hernia repair Family History Father CHF (congestive heart failure) Mother Lung cancer Sister No problems noted. Daughter No problems noted. Daughter No problems noted. Daughter No problems noted. Social History Housing: House Alcohol intake: current Alcohol intake frequency: a few times a week Patient Tobacco Use Status: Current someday Tobacco user Tobacco use type: Cigar e-Cigarette/Vaping Use: Never Used Second Hand Smoke Exposure: No service: No Current occupational status: retired Cognitive needs: No Hearing needs: Yes (hearing aide) Vision needs: Yes (glasses) Questionnaire Thrive Questionnaire Date Thrive assessed: 09/10/22 MOUSTAPHA-7 AMB Questionnaire MOUSTAPHA-7 Date MOUSTAPHA - 7 assessed: 09/10/22 Source: Developed by Drs. Barney Jon, Deloris Johnson, Brock Hdz and colleagues, with an educational annamaria from [employer]. Review of Systems Const Denies chills, Denies fatigue, Denies headache(s) and Denies weight loss Eyes Denies change in vision, Denies diplopia and Denies eye pain ENT Denies vertigo, Denies dizziness, Denies headache(s) and Denies nasal discharge Card Denies chest pain, Denies rapid heart rate and Denies dyspnea on exertion Resp Denies chest congestion, Denies cough, Denies pain with cough and Denies dyspnea on exertion GI Denies abdominal pain, Denies hematochezia and Denies change in bowel habits Musc Denies myalgias, Denies arthralgias and Denies joint swelling Skin/Breast Denies lesions and Denies unusual bruising Neuro Denies vertigo, Denies dizziness, Denies headache(s) and Denies focal weakness Endo Denies fatigue Physical exam (Primary Care) Vital Signs: Last Vital Signs Pulse 72 09/29/22 14:22 BP 120/68 09/29/22 14:22 Pulse Ox 97 09/29/22 14:22 Oxygen Delivery Method Room Air 09/29/22 14:22 BMI result Body Mass Index 24.6 Tobacco/Smoking Status: Tobacco use Status Tobacco use date assessed 09/29/22 09/29/22 14:26 Patient Tobacco Use Status Current someday Tobacco 09/29/22 14:26 Tobacco use type Cigar 09/29/22 14:26 e-Cigarette/Vaping Use Never Used 09/29/22 14:26 Thrive Assessment: Date of Thrive Assessment Date Thrive assessed 09/10/22 09/29/22 14:26 Const General: cooperative, healthy appearing and no acute distress Orientation/consciousness: oriented to person, oriented to place and oriented to time HENMT Head: Yes normal to inspection, Yes normocephalic and Yes atraumatic Mouth: Normal oral and palatal mucosa present and tongue normal Throat: Yes posterior oropharynx normal and Yes uvula midline Eyes General: appearance normal, both eyes and all related structures Neck Neck: Yes normal visual inspection, Yes full ROM and Yes no lymphadenopathy Thyroid: Thyroid normal Carotids: normal carotid upstroke Chest Chest palpation & inspection: normal inspection of the chest Resp Effort & Inspection: normal respiratory effort and able to speak in complete sentences Auscultation: clear to auscultation bilaterally Cardio Jugular venous distension: no JVD Palpation: normal PMI Rate: regular rate Rhythm: regular rhythm Heart sounds: S1 normal heart sound present and S2 normal heart sound present GI Inspection: Yes normal to inspection Palpation (GI): Soft to palpation and No hepatosplenomegaly present Auscultation: normal bowel sounds General: Yes no CVA tenderness Back/Spine/Pelvis Back: no CVA tenderness Skin General skin exam: no rashes or lesions noted Neuro General: oriented to person, oriented to place and oriented to time Extrem General: Yes normal to inspection and Yes full ROM Assessment and Plan Assessment & Plan (1) Preop exam for internal medicine: Code(s): Z01.818 - Encounter for other preprocedural examination Plan: low risk of cardiovascular complications; cleared for surgery (2) Hypertension: Code(s): I10 - Essential (primary) hypertension Plan: stable; same rx (3) Hyperlipidemia: Code(s): E78.5 - Hyperlipidemia, unspecified Plan: stable; same rx Coding Level of Care Code Est Pt Level 4 (41349) Diagnoses Preop exam for internal medicine Z01.818 Hypertension I10 Hyperlipidemia E78.5
[2022-09-29 14:22] VITALS: BP 120/68; PULSE 72; O2SAT 97; BMI 24.6
== END 2022-09-29 15:07 | disposition home or self-care (01) ==
LOC: HO.HMGH 14:15
PROVIDERS: PCP Internal Medicine; Visit Provider Internal Medicine
DX: Z01.818 Encounter for other preprocedural examination (principal); I10 Essential (primary) hypertension; E78.5 Hyperlipidemia, unspecified
CPT/HCPCS: 99214

== ENCOUNTER 2022-10-06 08:30 | Day surgery (SDC) | payer MEDICARE, SELFPAY ==
[2022-10-02 09:02] VITALS: BMI 25.0
--- NOTE | 2022-10-03 08:02 | MHC.SHP ---
Pre-Procedural Eval Section A Date of Service: 10/03/22 The patient is an INPATIENT: No Changes since office visit: No Cold of Flu in the past 2 weeks, No New Medical Problems, No Changes in Medication and No Patient answered all questions The History & Physical has been completed within 30 days and I have reviewed it.: Yes Section B Chief Complaint: Age-related nuclear cataract, right eye Allergies: Allergies Allergy/AdvReac Type Severity Reaction Status Date / Time methylprednisolone Allergy Unknown HIVES Verified 09/29/22 14:22 [METHYLPREDNISOLONE] Plan Diagnosis/Plan: Unchanged I have reviewed the history and physical and performed a pertinent physical examination on my patient. No changes have occurred unless specified. Time Spent With Patient Time: Total time managing care of this patient today ____ minutes.
[2022-10-06 09:46] VITALS: BP 185/84; PULSE 57; RESP 18; TEMP 36.1; O2SAT 97
[2022-10-06 09:58] VITALS: BMI 24.7
[2022-10-06] MEDS: Lactated Ringers 500 ML 50 ML IV (10:05)
[2022-10-06] MEDS: Tetracaine HCl/PF 0.5% Oph Sol 4 ML DROPS 1 DROP EYE-RIGHT (10:07)
[2022-10-06] MEDS: Ketorolac Tromethamine 0.5% Op 5 ML DROPS 1 DROP EYE-RIGHT ×3 (10:07→10:12)
[2022-10-06] MEDS: Cyclopentolate 1 % Ophth Sol 2 ML DRPBTL 1 DROP EYE-RIGHT ×3 (10:07→10:12)
[2022-10-06] MEDS: Tropicamide 1 % Ophth Sol 3 ML BTL 1 DROP EYE-RIGHT ×3 (10:08→10:12)
[2022-10-06] MEDS: Phenylephrine HCL 2.5% Oph SoL 2 ML BOTTLE 1 DROP EYE-RIGHT ×3 (10:08→10:12)
--- NOTE | 2022-10-06 10:51 | HO.ANESPROP2 ---
HPI - Anesthesia Eval Consult details Narrative: 87 yo male patient for Right Cataract extraction, IOL insertion PMFSH Active Problems Active Problems: All Active Problems (Updated 10/06/22 @ 10:55 by Catherine Fuentes MD) URI (upper respiratory infection) (Acute) Benign positional vertigo (Acute) Impacted cerumen of left ear (Acute) Hypertension (Acute) Preop exam for internal medicine (Acute) Lesion of right earlobe (Acute) Hyperlipidemia (Acute) Advanced age Past Medical History Medical History [place] (hard of hearing) Hyperlipidemia Hypertension Lesion of right earlobe Family History Family History Father CHF (congestive heart failure) Mother Lung cancer Sister No problems noted. Daughter No problems noted. Daughter No problems noted. Daughter No problems noted. Family history of problems with anesthesia: No Surgical History Surgical History H/O basal cell carcinoma excision H/O excision of ganglion cyst History of inguinal hernia repair History of Problems with Anesthesia: No Social History Social History Housing: House Are you a primary personal care home administrator to a significant other at home: No Do you presently have visiting nurse or other home services: No Alcohol intake: current Alcohol intake frequency: 0-2 drinks per day Patient Tobacco Use Status: Current everyday Tobacco user Tobacco use type: Cigar e-Cigarette/Vaping Use: Never Used Second Hand Smoke Exposure: No Use of substances other than those prescribed or required for medical reasons: No Have you been hit, kicked, punched, or otherwise hurt by someone within the past year? If so, by whom?: No Advance Directives: No Advance Directives Information Provided: Yes Advance Directives on File: No Recently lost weight without trying: No Eating poorly because of decreased appetite: No Nutrition Risks: No Nutritional Risk Poor oral hygiene: No service: No Current occupational status: retired Cognitive needs: No Hearing needs: Yes (hearing aide) Vision needs: Yes (glasses) Meds Allergies Allergy/AdvReac Type Severity Reaction Status Date / Time methylprednisolone Allergy Unknown HIVES Verified 09/29/22 14:22 [METHYLPREDNISOLONE] Active Medications: Current Medications Lactated Ringer's (Lr) 500 mls @ 50 mls/hr IV .Q10H DANIELA Stop: 10/06/22 19:44 Last Admin: 10/06/22 10:05 Dose: 50 mls/hr Povidone Iodine (Povidone Iodine 5 % Ophth Soln 30 Ml Bottle) 1 appl EYE-RIGHT PREOP PRN PRN Reason: Pre-Op Surgical Implant Prophy Home Medications Medication Instructions Recorded Confirmed Last Taken Type aspirin 81 mg tablet,delayed 81 mg PO DAILY 01/03/20 10/02/22 Unknown History release Exam Exam Date and Time: October 06, 2022 1051 Height,Weight and Vital Signs: Height 5 ft 6 in Weight 69.4 kg Last Vital Signs Temp 96.9 F 10/06/22 09:46 Pulse 57 10/06/22 09:46 Resp 18 10/06/22 09:46 BP 185/84 H 10/06/22 09:46 Pulse Ox 97 10/06/22 09:46 O2 Del Method Room Air 10/06/22 09:46 Airway Mallampati Class: III TM Dist: >3cm Neck ROM: Full Loose/Missing/Broken Teeth: No (Denies broken, loose, missing teeth) Heart: RRR Lungs: CTAB Assessment and Plan Assessment Anesthesia Assessment: Anesthesia Plan Discussed and Chart Reviewed Final Anesthetic Review Family History of Problems with Anesthesia: No History of Problems with Anesthesia: No NPO: Yes ASA Class: III Final Preanesthetic Review: No Changes in Pt Med Stat, Meds/Allgs Chart Reviewed, Consent Obtained/Reviewed and Anes Risks/Benef Reviewed Patient Risk: Intermediate Procedure Risk: Low Assessment/Block/Sedation in SS: Assess/Block/Sedation-SS Anesthetic Plan Anesthetic Plan: MAC: Disposition: Standard PACU
--- NOTE | 2022-10-06 11:03 | HO.PNOPHT ---
Ophthalmology Procedure Procedure Date of Service: 10/06/22 Ophthalmology Viscoelastic: Matt Najerat Dual Pack Pro Ophthalmology Lenses: TECSAYRA [id number] (22) Procedure Notes: PREOPERATIVE DIAGNOSIS: Decreased visual acuity right eye secondary to cataract POSTOPERATIVE DIAGNOSIS: Same PROCEDURE: Right cataract extraction with intraocular lens insertion SURGEON: Marshal Canas M.D. ANESTHESIA: Topical/MAC ESTIMATED BLOOD LOSS: None COMPLICATIONS: None After obtaining informed consent, the patient was brought to the operating room suite and placed in the supine position. After adequate sedation per anesthesia, topical drops of Tetracaine were given to the right eye. The eye was then prepped and draped in the usual sterile fashion. The operating room microscope was then positioned over the operative eye and a lid speculum placed. A paracentesis was created. Viscoelastic was then instilled into the anterior chamber. A three plane incision was then created temporally, utilizing a 2.85 mm keratome. Capsulotomy forceps were then utilized to create a circular tear capsulotomy. Hydrodissection and hydrodelineation were carried out until adequate mobilization of the nucleus occurred. Phacoemulsification was then utilized to remove the dense central nucleus followed by removal of the cortical material utilizing the automated aspiration irrigation unit. Viscoelastic was instilled into the posterior capsular bag followed by placement of a posterior chamber intraocular lens without difficulty. The residual Viscoelastic was then removed utilizing the automated IA machine. The wound was checked and found to be watertight. The patient tolerated the procedure well and the lid speculum was removed. Intracameral injection of Vigamox 0.1 mL followed by a subtenon injection of Kenalog-40 0.2 mL were administered. The patient will be seen in the a.m.
[2022-10-06 11:29] VITALS: BP 178/76; PULSE 61; RESP 12; TEMP 36.2; O2SAT 99
== END 2022-10-06 11:51 | disposition home or self-care (01) ==
PROVIDERS: PCP Internal Medicine; Visit Provider Ophthalmology
PROC: (CPT 66985; principal; 2022-10-06 10:50)
DX: H25.11 Age-related nuclear cataract, right eye (principal); H52.4 Presbyopia; H35.033 Hypertensive retinopathy, bilateral; H18.413 Arcus senilis, bilateral; I10 Essential (primary) hypertension; E78.5 Hyperlipidemia, unspecified; Z79.82 Long term (current) use of aspirin; Z79.899 Other long term (current) drug therapy; Z88.8 Allergy status to other drugs, medicaments and biological substances; Z85.828 Personal history of other malignant neoplasm of skin; F17.290 Nicotine dependence, other tobacco product, uncomplicated
CPT/HCPCS: 66984; J3010; J3301; V2632

== ENCOUNTER 2022-10-20 09:20 | Day surgery (SDC) | payer MEDICARE, SELFPAY ==
[2022-10-02 09:08] VITALS: BMI 25.0
--- NOTE | 2022-10-10 08:26 | MHC.SHP ---
Pre-Procedural Eval Section A Date of Service: 10/10/22 The patient is an INPATIENT: No Changes since office visit: No Cold of Flu in the past 2 weeks, No New Medical Problems, No Changes in Medication and No Patient answered all questions The History & Physical has been completed within 30 days and I have reviewed it.: Yes Section B Chief Complaint: Age-related nuclear cataract, left eye Allergies: Allergies Allergy/AdvReac Type Severity Reaction Status Date / Time methylprednisolone Allergy Unknown HIVES Verified 09/29/22 14:22 [METHYLPREDNISOLONE] Plan Diagnosis/Plan: Unchanged I have reviewed the history and physical and performed a pertinent physical examination on my patient. No changes have occurred unless specified. Time Spent With Patient Time: Total time managing care of this patient today ____ minutes.
--- NOTE | 2022-10-16 12:37 | HO.ANESPROP2 ---
Documented by User: Whit Quiles NP 10/16/22 12:37 HPI - Anesthesia Eval Consult details Narrative: 87yo M for Left Cataract Extraction IOL Insertion s/p right eye 10/06/22 with TIVA: No meds per anesth record PMFSH Active Problems Active Problems: All Active Problems (Updated 10/02/22 @ 08:58 by Alondra Nogueira RN) URI (upper respiratory infection) (Acute) Benign positional vertigo (Acute) Impacted cerumen of left ear (Acute) Hypertension (Acute) Preop exam for internal medicine (Acute) Hypertension (Acute) Lesion of right earlobe (Acute) Hyperlipidemia (Acute) Past Medical History Medical History [place] (hard of hearing) Hyperlipidemia Hypertension Lesion of right earlobe Family History Family History Father CHF (congestive heart failure) Mother Lung cancer Sister No problems noted. Daughter No problems noted. Daughter No problems noted. Daughter No problems noted. Family history of problems with anesthesia: No Surgical History Surgical History H/O basal cell carcinoma excision H/O excision of ganglion cyst History of inguinal hernia repair History of Problems with Anesthesia: No Social History Social History Housing: House Are you a primary director day care center to a significant other at home: No Do you presently have visiting nurse or other home services: No Alcohol intake: current Alcohol intake frequency: 0-2 drinks per day Patient Tobacco Use Status: Current everyday Tobacco user Tobacco use type: Cigar e-Cigarette/Vaping Use: Never Used Second Hand Smoke Exposure: No Use of substances other than those prescribed or required for medical reasons: No Have you been hit, kicked, punched, or otherwise hurt by someone within the past year? If so, by whom?: No Advance Directives: No Advance Directives Information Provided: Yes Advance Directives on File: No Recently lost weight without trying: No Eating poorly because of decreased appetite: No Nutrition Risks: No Nutritional Risk Poor oral hygiene: No service: No Current occupational status: retired Cognitive needs: No Hearing needs: Yes (hearing aide) Vision needs: Yes (glasses) Meds Allergies Allergy/AdvReac Type Severity Reaction Status Date / Time methylprednisolone Allergy Unknown HIVES Verified 09/29/22 14:22 [METHYLPREDNISOLONE] Home Medications Medication Instructions Recorded Confirmed Last Taken Type aspirin 81 mg tablet,delayed 81 mg PO DAILY 01/03/20 10/02/22 Unknown History release Exam Exam Date and Time: October 16, 2022 1237 Height,Weight and Vital Signs: Height 5 ft 6 in Weight 70.307 kg Assessment and Plan Assessment Anesthesia Assessment: Chart Reviewed Final Anesthetic Review Family History of Problems with Anesthesia: No History of Problems with Anesthesia: No Documented by User: Jyoti Claros MD 10/20/22 11:46 PMFSH Past Medical History Medical History [place] (hard of hearing) Hyperlipidemia Hypertension Lesion of right earlobe Family History Family History Father CHF (congestive heart failure) Mother Lung cancer Sister No problems noted. Daughter No problems noted. Daughter No problems noted. Daughter No problems noted. Surgical History Surgical History H/O basal cell carcinoma excision H/O excision of ganglion cyst History of inguinal hernia repair Social History Social History Housing: House Are you a primary director day care center to a significant other at home: No Do you presently have visiting nurse or other home services: No Alcohol intake: current Alcohol intake frequency: 0-2 drinks per day Patient Tobacco Use Status: Current everyday Tobacco user Tobacco use type: Cigar e-Cigarette/Vaping Use: Never Used Second Hand Smoke Exposure: No Use of substances other than those prescribed or required for medical reasons: No Have you been hit, kicked, punched, or otherwise hurt by someone within the past year? If so, by whom?: No Advance Directives: No Advance Directives Information Provided: Yes Advance Directives on File: No Recently lost weight without trying: No Eating poorly because of decreased appetite: No Nutrition Risks: No Nutritional Risk Poor oral hygiene: No service: No Current occupational status: retired Cognitive needs: No Hearing needs: Yes (hearing aide) Vision needs: Yes (glasses) Meds Allergies Allergy/AdvReac Type Severity Reaction Status Date / Time methylprednisolone Allergy Unknown HIVES Verified 09/29/22 14:22 [METHYLPREDNISOLONE] Home Medications Medication Instructions Recorded Confirmed Last Taken Type aspirin 81 mg tablet,delayed 81 mg PO DAILY 01/03/20 10/02/22 Unknown History release Exam Airway Mallampati Class: III TM Dist: >3cm Neck ROM: Limited Loose/Missing/Broken Teeth: No Heart: RRR Lungs: CTA Assessment and Plan Assessment Anesthesia Assessment: Anesthesia Plan Discussed Final Anesthetic Review NPO: Yes ASA Class: II Final Preanesthetic Review: Meds/Allgs Chart Reviewed, Consent Obtained/Reviewed and Anes Risks/Benef Reviewed Patient Risk: Low Procedure Risk: Low Anesthetic Plan Anesthetic Plan: MAC: Disposition: Standard PACU
[2022-10-20 11:34] VITALS: BP 153/72; PULSE 56; RESP 16; TEMP 36.1; O2SAT 96
--- NOTE | 2022-10-20 11:42 | HO.PNOPHT ---
Ophthalmology Procedure Procedure Date of Service: 10/20/22 Ophthalmology Viscoelastic: Healazucena Najerat Dual Pack Pro Ophthalmology Lenses: TECSAYRA [id number] (22) Procedure Notes: PREOPERATIVE DIAGNOSIS: Decreased visual acuity left eye secondary to cataract POSTOPERATIVE DIAGNOSIS: Same PROCEDURE: Left cataract extraction with intraocular lens insertion SURGEON: Marshal Canas M.D. ANESTHESIA: Topical/MAC ESTIMATED BLOOD LOSS: None COMPLICATIONS: None After obtaining informed consent, the patient was brought to the operation room suite and placed in the supine position. After adequate sedation per anesthesia, topical drops of Tetracaine were given to the left eye. The eye was then prepped and draped in the usual sterile fashion. The operating room microscope was then positioned over the operative eye and a lid speculum placed. A paracentesis was created. Viscoelastic was then instilled into the anterior chamber. A three plane incision was then created temporally, utilizing a 2.85 mm keratome. Capsulotomy forceps were then utilized to create a circular tear capsulotomy. Hydrodissection and hydrodelineation were carried out until adequate mobilization of the nucleus occurred. Phacoemulsification was then utilized to remove the dense central nucleus followed by removal of the cortical material utilizing the automated aspiration irrigation unit. Viscoat elastic was instilled into the posterior capsular bag followed by placement of a posterior chamber intraocular lens without difficulty. The residual Viscoat elastic was then removed utilizing the automated IA machine. The wound was check and found to be watertight. The patient tolerated the procedure well and the lid speculum was removed. Intracameral injection of Vigamox 0.1 mL followed by a subtenon injection of Kenalog-40 0.2 mL were administered. The patient will be seen in the a.m.
[2022-10-20] MEDS: Tetracaine HCl/PF 0.5% Oph Sol 4 ML DROPS 1 DROP EYE-LEFT (11:43)
[2022-10-20] MEDS: Cyclopentolate 1 % Ophth Sol 2 ML DRPBTL 1 DROP EYE-LEFT ×3 (11:44→11:50)
[2022-10-20] MEDS: Lactated Ringers 500 ML 50 ML IV (11:44)
[2022-10-20] MEDS: Tropicamide 1 % Ophth Sol 3 ML BTL 1 DROP EYE-LEFT ×3 (11:45→11:51)
[2022-10-20] MEDS: Ketorolac Tromethamine 0.5% Op 5 ML DROPS 1 DROP EYE-LEFT ×3 (11:46→11:51)
[2022-10-20] MEDS: Phenylephrine HCL 2.5% Oph SoL 2 ML BOTTLE 1 DROP EYE-LEFT ×3 (11:47→11:52)
--- NOTE | 2022-10-20 12:00 | HO.ANESPROP2 ---
[facility] Active Problems Active Problems: All Active Problems (Updated 10/02/22 @ 08:58 by Alondra Nogueira RN) URI (upper respiratory infection) (Acute) Benign positional vertigo (Acute) Impacted cerumen of left ear (Acute) Hypertension (Acute) Preop exam for internal medicine (Acute) Hypertension (Acute) Lesion of right earlobe (Acute) Hyperlipidemia (Acute) Past Medical History Medical History [place] (hard of hearing) Hyperlipidemia Hypertension Lesion of right earlobe Family History Family History Father CHF (congestive heart failure) Mother Lung cancer Sister No problems noted. Daughter No problems noted. Daughter No problems noted. Daughter No problems noted. Family history of problems with anesthesia: No Surgical History Surgical History H/O basal cell carcinoma excision H/O excision of ganglion cyst History of inguinal hernia repair History of Problems with Anesthesia: No Social History Social History Housing: House Are you a primary healthcare translator to a significant other at home: No Do you presently have visiting nurse or other home services: No Alcohol intake: current Alcohol intake frequency: 0-2 drinks per day Patient Tobacco Use Status: Current everyday Tobacco user Tobacco use type: Cigar e-Cigarette/Vaping Use: Never Used Second Hand Smoke Exposure: No Use of substances other than those prescribed or required for medical reasons: No Have you been hit, kicked, punched, or otherwise hurt by someone within the past year? If so, by whom?: No Advance Directives: No Advance Directives Information Provided: Yes Advance Directives on File: No Recently lost weight without trying: No Eating poorly because of decreased appetite: No Nutrition Risks: No Nutritional Risk Poor oral hygiene: No service: No Current occupational status: retired Cognitive needs: No Hearing needs: Yes (hearing aide) Vision needs: Yes (glasses) Meds Allergies Allergy/AdvReac Type Severity Reaction Status Date / Time methylprednisolone Allergy Unknown HIVES Verified 09/29/22 14:22 [METHYLPREDNISOLONE] Active Medications: Current Medications Lactated Ringer's (Lr) 500 mls @ 50 mls/hr IV .Q10H DANIELA Stop: 10/20/22 21:29 Last Admin: 10/20/22 11:44 Dose: 50 mls/hr Povidone Iodine (Povidone Iodine 5 % Ophth Soln 30 Ml Bottle) 1 appl EYE-LEFT PREOP PRN PRN Reason: Pre-Op Surgical Implant Prophy Home Medications Medication Instructions Recorded Confirmed Last Taken Type aspirin 81 mg tablet,delayed 81 mg PO DAILY 01/03/20 10/02/22 Unknown History release Exam Exam Date and Time: October 20, 2022 1200 Height,Weight and Vital Signs: Height 5 ft 6 in Weight 70.307 kg Last Vital Signs Temp 97.0 F 10/20/22 11:34 Pulse 56 10/20/22 11:34 Resp 16 10/20/22 11:34 BP 153/72 H 10/20/22 11:34 Pulse Ox 96 10/20/22 11:34 O2 Del Method Room Air 10/20/22 11:34 Airway Mallampati Class: III TM Dist: >3cm Neck ROM: Full Heart: RRR Lungs: CTA Assessment and Plan Assessment Anesthesia Assessment: Anesthesia Plan Discussed and Chart Reviewed Final Anesthetic Review Family History of Problems with Anesthesia: No History of Problems with Anesthesia: No NPO: Yes ASA Class: II Final Preanesthetic Review: Meds/Allgs Chart Reviewed, Consent Obtained/Reviewed and Anes Risks/Benef Reviewed Patient Risk: Low Procedure Risk: Low Anesthetic Plan Anesthetic Plan: MAC: Disposition: Standard PACU
[2022-10-20 12:42] VITALS: BP 173/71; PULSE 58; RESP 16; TEMP 36.4; O2SAT 98
== END 2022-10-20 12:45 | disposition home or self-care (01) ==
PROVIDERS: PCP Internal Medicine; Visit Provider Ophthalmology
PROC: (CPT 66985; principal; 2022-10-20 12:50)
DX: H25.12 Age-related nuclear cataract, left eye (principal); H52.4 Presbyopia; H35.033 Hypertensive retinopathy, bilateral; H18.413 Arcus senilis, bilateral; I10 Essential (primary) hypertension; E78.00 Pure hypercholesterolemia, unspecified; Z85.828 Personal history of other malignant neoplasm of skin; Z79.899 Other long term (current) drug therapy; Z79.82 Long term (current) use of aspirin; Z88.8 Allergy status to other drugs, medicaments and biological substances; F17.290 Nicotine dependence, other tobacco product, uncomplicated
CPT/HCPCS: 66984; J3010; J3301; V2632

== ENCOUNTER 2022-11-12 13:30 | Outpatient (AMB) | payer MEDICARE, SELFPAY ==
[2022-11-12 13:33] VITALS: BP 124/70; PULSE 67; O2SAT 98; BMI 25.0
--- NOTE | 2022-11-12 13:33 | A.OFFPC_ITS ---
Vital Signs 11/12/22 13:33 Height 5 ft 6 in Weight 155 lb BMI 25.0 BP 124/70 Blood Pressure Location Lt brachial Position Sitting Pulse 67 Pulse Source Pulse Oximeter Pulse Oximetry (%) 98 Oxygen Delivery Method Room Air Intake Visit Reasons: bug bite [employer]: Not Required per policy Accompanied by: Self / Same As Patient Allergies methylprednisolone [METHYLPREDNISOLONE] Allergy (Unknown, Verified 11/12/22 13:33) HIVES Medication List - Last Reconciled 11/12/22 by Jean Salcido MD aspirin 81 mg PO DAILY hydrochlorothiazide 25 mg PO DAILY lovastatin 40 mg PO DAILY Tobacco use date assessed: 09/29/22 Fall risk assessment: No Falls in past year Last assessed Fall Risk: 11/12/22 Dental Screening Dental Screen Date: 11/12/22 Did you have a dental visit in the last 12 months?: Yes Did you have a dental problem in the last 6 months where you did not have access to dental care?: No Was dental information given to patient?: Patient has dentist HPI bug bite HPI Details pruritic rash on right wrist PFSH Medical History [place] (hard of hearing) Hypertension Lesion of right earlobe Hyperlipidemia Surgical History H/O basal cell carcinoma excision H/O excision of ganglion cyst History of inguinal hernia repair Family History Father CHF (congestive heart failure) Mother Lung cancer Sister No problems noted. Daughter No problems noted. Daughter No problems noted. Daughter No problems noted. Social History Housing: House Are you a primary insurance healthcare consultant to a significant other at home: No Do you presently have visiting nurse or other home services: No Alcohol intake: current Alcohol intake frequency: 0-2 drinks per day Patient Tobacco Use Status: Current everyday Tobacco user Tobacco use type: Cigar e-Cigarette/Vaping Use: Never Used Second Hand Smoke Exposure: No service: No Current occupational status: retired Cognitive needs: No Hearing needs: Yes (hearing aide) Vision needs: Yes (glasses) Questionnaire PHQ-9 Over the last 2 weeks, how often have you been bothered by any of the following problems? 1. Little interest or pleasure in doing things: not at all 2. Feeling down, depressed, or hopeless: not at all 3. Trouble falling or staying asleep, or sleeping too much: not at all 4. Feeling tired or having little energy: not at all 5. Poor appetite or overeating: not at all 6. Feeling bad about yourself - or that you are a failure or have let yourself or your family down: not at all 7. Trouble concentrating on things, such as reading the newspaper or watching television: not at all 8. Moving or speaking so slowly that other people could have noticed. Or the opposite - being so fidgety or restless that you have been moving around a lot more than usual: not at all 9. Thoughts that you would be better off or of hurting yourself in some way: not at all Total score: 0 Depression Screening Interpretation: Negative 40598 - PHQ-9 Billing: Yes Source: Developed by Drs. Barney Jon, Brock Dong and colleagues, with an educational annamaria from [employer]. Thrive Questionnaire Date Thrive assessed: 09/10/22 AUDIT C Alcohol Use Questionnaire (AUDIT-C) 1. How often do you have a drink containing alcohol?: Monthly or less 2. How many drinks containing alcohol do you have on a typical day when you are drinking?: 1 or 2 3. How often do you have six or more drinks on one occasion?: Never Total Score: 1 Score Reviewed/Action Taken: No MOUSTAPHA-7 AMB Questionnaire MOUSTAPHA-7 Date MOUSTAPHA - 7 assessed: 09/10/22 Source: Developed by Drs. Barney Jon, Brock Dong and colleagues, with an educational annamaria from [employer]. Review of Systems Const Denies chills, Denies headache(s) and Denies weight loss ENT Denies headache(s) Card Denies chest pain, Denies syncope, Denies irregular heart rhythm and Denies dyspnea Resp Denies chest congestion, Denies cough and Denies dyspnea GI Denies abdominal pain, Denies change in stool character, Denies nausea and Denies vomiting Musc Denies deformity and Denies joint swelling Neuro Denies syncope and Denies headache(s) Physical exam (Primary Care) Vital Signs: Last Vital Signs Pulse 67 11/12/22 13:33 BP 124/70 11/12/22 13:33 Pulse Ox 98 11/12/22 13:33 Oxygen Delivery Method Room Air 11/12/22 13:33 BMI result Body Mass Index 25.0 Tobacco/Smoking Status: Tobacco use Status Tobacco use date assessed 09/29/22 11/12/22 13:38 Patient Tobacco Use Status Current everyday Tobacco 11/12/22 13:38 Tobacco use type Cigar 11/12/22 13:38 e-Cigarette/Vaping Use Never Used 11/12/22 13:38 PHQ-9: PHQ-9 Score PHQ-9: Total score 0 11/12/22 13:38 Depression Screening Interpretation: Negative Thrive Assessment: Date of Thrive Assessment Date Thrive assessed 09/10/22 11/12/22 13:38 Const General: cooperative, comfortable and no acute distress HENMT Head: Yes normal to inspection Neck Neck: Yes normal visual inspection Chest Chest palpation & inspection: normal inspection of the chest Skin Other: contact derm right wrist Assessment and Plan Assessment & Plan (1) Contact dermatitis: Code(s): L25.9 - Unspecified contact dermatitis, unspecified cause Plan: take rx Orders: Orders Microalbumin, Random (w Creat) Today E11.69 - Type 2 diabetes mellitus with other specified complication, E66.01 - Morbid (severe) obesity due to excess calories Medications: New cephalexin 250 mg PO Q6H 20 caps 0RF triamcinolone acetonide 0.5% 1 appl topical TID 15 grams 3RF Coding Level of Care Code Est Pt Level 3 (56322) Diagnoses Contact dermatitis L25.9
== END 2022-11-12 14:12 | disposition home or self-care (01) ==
PROVIDERS: PCP Internal Medicine; Visit Provider Internal Medicine
DX: L25.9 Unspecified contact dermatitis, unspecified cause (principal)
CPT/HCPCS: 99213

== ENCOUNTER 2023-01-19 06:15 | Outpatient (REF) | payer MEDICARE, SELFPAY ==
[2023-01-19 06:27] LABS: MANUAL DIFF FLAG NO
[2023-01-19 07:44] LABS: Basophils Percent Auto 0.4 % (0-2); Eosinophils Absolute Auto 0.3 X10*3/uL (0.0-0.4); Eosinophils Percent Auto 4.6 % (0-4); Hematocrit 46.4 % (42.0-52.0); Hemoglobin 15.8 g/dl (14.0-18.0); Imm Gran Abs Auto 0.06 X10*3/uL (0.00-0.03); Imm Gran Pct Auto 0.8 % (0.0-0.4); Lymphocytes Percent Auto 27.5 % (20-40); Mean Corpuscular HGB Conc 34.1 g/dl (31.0-36.0); Mean Corpuscular Hemoglobin 31.9 pg (27.0-33.0); Mean Corpuscular Volume 93.7 fL (80.0-98.0); Monocytes Absolute Auto 0.6 X10*3/uL (0.1-1.2); Monocytes Percent Auto 8.3 % (2-11); Neutrophils Absolute Auto 4.3 x10*3/uL (2.0-8.3); Neutrophils Percent Auto 58.4 % (45-73); Platelet Count 171 X10*3/uL (160-400); Red Blood Count 4.95 X10*6/uL (4.60-5.80); Red Cell Distribution Width 12.4 % (11.0-16.0); White Blood Count 7.4 X10*3/uL (4.8-10.8)
[2023-01-19 08:31] LABS: Creatinine Urine 129.13 mg/dL; Microalbum/Creatinine Ratio Ur 9.2 ug/mg cr (<30)
[2023-01-19 08:36] LABS: Alanine Aminotransferase 21 U/L (0-40); Albumin Level 4.4 g/dL (3.5-5.0); Alkaline Phosphatase 48 U/L (39-117); Anion Gap 9 (12-20); Aspartate Amino Transferase 24 U/L (5-37); Bilirubin Total 0.8 mg/dL (0.0-1.0); Blood Urea Nitrogen 20 mg/dL (9-16); Calcium 9.4 mg/dL (8.4-10.2); Carbon Dioxide 32 mmol/L (22-29); Chloride 103 mmol/L (96-108); Cholesterol 157 mg/dL (<200); Estimated Glomerular Filt Rate > 60; Glucose Fasting 90 mg/dL (60-99); HDL Cholesterol 63 mg/dL (>40); LDL Cholesterol Calculated 83 mg/dL (<100); Potassium 3.5 mmol/L (3.3-5.1); Sodium 140 mmol/L (135-145); Total Protein 7.3 g/dL (6.5-8.0); Triglycerides 57 mg/dL (<150)
[2023-01-19 08:53] LABS: Thyroid Stimulating Hormone 0.73 uIU/mL (0.32-4.0)
== END 2023-01-19 06:16 | disposition home or self-care (01) ==
LOC: HO.LAB 06:15
PROVIDERS: PCP Internal Medicine; Visit Provider Internal Medicine
DX: E11.69 Type 2 diabetes mellitus with other specified complication (principal); E66.01 Morbid (severe) obesity due to excess calories; D64.9 Anemia, unspecified; N28.9 Disorder of kidney and ureter, unspecified; E03.9 Hypothyroidism, unspecified; E78.5 Hyperlipidemia, unspecified
CPT/HCPCS: 36415; 80053; 80061; 82043; 82570; 84443; 85025

== ENCOUNTER 2023-01-21 10:14 | Outpatient (AMB) | payer MEDICARE, SELFPAY ==
[2023-01-21 10:17] VITALS: BP 170/78; PULSE 65; O2SAT 98; BMI 25.5
--- NOTE | 2023-01-21 10:17 | MHC.PC.OV ---
Vital Signs 01/21/23 10:17 Height 5 ft 6 in Weight 158 lb BMI 25.5 BP 170/78 H Blood Pressure Location Lt brachial Position Sitting Pulse 65 Pulse Source Pulse Oximeter Pulse Oximetry (%) 98 Oxygen Delivery Method Room Air Intake Visit Reasons: 4 month f/u [employer] Supervisor Required: No Model And Pattern Supervisor: Not Required per policy Accompanied by: Self / Same As Patient Allergies methylprednisolone [METHYLPREDNISOLONE] Allergy (Unknown, Verified 01/21/23 10:17) HIVES Medication List - Last Reconciled 01/21/23 by Jean Salcido MD aspirin 81 mg PO DAILY hydrochlorothiazide 25 mg PO DAILY lovastatin 40 mg PO DAILY Tobacco use date assessed: 09/29/22 Fall risk assessment: No Falls in past year Last assessed Fall Risk: 01/21/23 Dental Screening Dental Screen Date: 01/21/23 Did you have a dental visit in the last 12 months?: Yes Did you have a dental problem in the last 6 months where you did not have access to dental care?: No Was dental information given to patient?: Patient has dentist HPI 4 month f/u HPI Details HT N and hyperlip on rx; stable PFSH Medical History [place] (hard of hearing) Hypertension Lesion of right earlobe Hyperlipidemia Surgical History H/O basal cell carcinoma excision H/O excision of ganglion cyst History of inguinal hernia repair Family History Father CHF (congestive heart failure) Mother Lung cancer Sister No problems noted. Daughter No problems noted. Daughter No problems noted. Daughter No problems noted. Housing: House Are you a primary animal care taker to a significant other at home: No Do you presently have visiting nurse or other home services: No Alcohol intake: current Alcohol intake frequency: 0-2 drinks per day Patient Tobacco Use Status: Current everyday Tobacco user Tobacco use type: Cigar e-Cigarette/Vaping Use: Never Used Second Hand Smoke Exposure: No service: No Current occupational status: retired Cognitive needs: No Hearing needs: Yes (hearing aide) Vision needs: Yes (glasses) Questionnaire PHQ-9 Over the last 2 weeks, how often have you been bothered by any of the following problems? 1. Little interest or pleasure in doing things: not at all 2. Feeling down, depressed, or hopeless: not at all 3. Trouble falling or staying asleep, or sleeping too much: not at all 4. Feeling tired or having little energy: not at all 5. Poor appetite or overeating: not at all 6. Feeling bad about yourself - or that you are a failure or have let yourself or your family down: not at all 7. Trouble concentrating on things, such as reading the newspaper or watching television: not at all 8. Moving or speaking so slowly that other people could have noticed. Or the opposite - being so fidgety or restless that you have been moving around a lot more than usual: not at all 9. Thoughts that you would be better off or of hurting yourself in some way: not at all Total score: 0 Depression Screening Interpretation: Negative Depression Screening Done: Yes [id number] - PHQ-9 Billing: Yes Source: Developed by Drs. Barney Jon, Brock Dong and colleagues, with an educational annamaria from [employer]. Thrive Questionnaire Date Thrive assessed: 09/10/22 AUDIT C Alcohol Use Questionnaire (AUDIT-C) 1. How often do you have a drink containing alcohol?: Monthly or less 2. How many drinks containing alcohol do you have on a typical day when you are drinking?: 1 or 2 3. How often do you have six or more drinks on one occasion?: Never Total Score: 1 Score Reviewed/Action Taken: No MOUSTAPHA-7 AMB Questionnaire MOUSTAPHA-7 Date MOUSTAPHA - 7 assessed: 09/10/22 Source: Developed by Drs. Barney Jon, Deloris Johnson, Brock Hdz and colleagues, with an educational annamaria from [employer]. Review of Systems Const Denies chills, Denies headache(s) and Denies weight loss ENT Denies headache(s) Card Denies chest pain, Denies syncope, Denies irregular heart rhythm and Denies dyspnea Resp Denies chest congestion, Denies cough and Denies dyspnea GI Denies abdominal pain, Denies change in stool character, Denies nausea and Denies vomiting Musc Denies deformity and Denies joint swelling Neuro Denies syncope and Denies headache(s) Physical exam (Primary Care) Vital Signs: Last Vital Signs Pulse 65 01/21/23 10:17 BP 170/78 H 01/21/23 10:17 Pulse Ox 98 01/21/23 10:17 Oxygen Delivery Method Room Air 01/21/23 10:17 BMI result Body Mass Index 25.5 Tobacco/Smoking Status: Tobacco use Status Tobacco use date assessed 09/29/22 01/21/23 10:18 Patient Tobacco Use Status Current everyday Tobacco 01/21/23 10:18 Tobacco use type Cigar 01/21/23 10:18 e-Cigarette/Vaping Use Never Used 01/21/23 10:18 PHQ-9: PHQ-9 Score PHQ-9: Total score 0 01/21/23 10:18 Depression Screening Interpretation: Negative Thrive Assessment: Date of Thrive Assessment Date Thrive assessed 09/10/22 01/21/23 10:18 Const General: cooperative, comfortable, no acute distress and alert Neck Neck: Yes no lymphadenopathy Thyroid: Thyroid normal Resp Effort & Inspection: normal respiratory effort Auscultation: clear to auscultation bilaterally Percussion: percussion normal Cardio Jugular venous distension: no JVD Palpation: normal PMI Rate: regular rate Rhythm: regular rhythm Heart sounds: S1 normal heart sound present and S2 normal heart sound present GI Inspection: Yes normal to inspection Palpation (GI): No hepatosplenomegaly present Skin General skin exam: no rashes or lesions noted Extrem General: Yes no clubbing, cyanosis or edema Assessment and Plan Assessment & Plan (1) Hypertension: Code(s): I10 - Essential (primary) hypertension Plan: stable; same rx (2) Hyperlipidemia: Code(s): E78.5 - Hyperlipidemia, unspecified Plan: stable; same rx Coding Level of Care Code Est Pt Level 3 (33017) Diagnoses Hypertension I10 Hyperlipidemia E78.5
== END 2023-01-21 10:42 | disposition home or self-care (01) ==
PROVIDERS: PCP Internal Medicine; Visit Provider Internal Medicine
DX: I10 Essential (primary) hypertension (principal); E78.5 Hyperlipidemia, unspecified
CPT/HCPCS: 99213

== ENCOUNTER 2023-02-05 13:15 | Outpatient (AMB) | payer MEDICARE, SELFPAY ==
[2023-02-05 13:17] VITALS: BP 168/82; PULSE 62; O2SAT 98; BMI 25.8
--- NOTE | 2023-02-05 13:17 | MHC.PC.OV ---
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 Patient of Dr. Salcido. Patient reports that he was seen for hearing aids and was told that earwax needs to be removed. Patient denies bilateral ear pain or discharge. PFSH Medical History [place] (hard of hearing) Hypertension Lesion of right earlobe Hyperlipidemia Surgical History H/O basal cell carcinoma excision H/O excision of ganglion cyst History of inguinal hernia repair Family History Father CHF (congestive heart failure) Mother Lung cancer Sister No problems noted. Daughter No problems noted. Daughter No problems noted. Daughter No problems noted. Social History Housing: House Are you a primary residential caregiver to a significant other at home: No Do you presently have visiting nurse or other home services: No Alcohol intake: current Alcohol intake frequency: 0-2 drinks per day Patient Tobacco Use Status: Current everyday Tobacco user Tobacco use type: Cigar e-Cigarette/Vaping Use: Never Used Second Hand Smoke Exposure: No service: No Current occupational status: retired Cognitive needs: No Hearing needs: Yes (hearing aide) Vision needs: Yes (glasses) Questionnaire Thrive Questionnaire Date Thrive assessed: 09/10/22 MOUSTAPHA-7 AMB Questionnaire MOUSTAPHA-7 Date MOUSTAPHA - 7 assessed: 09/10/22 Source: Developed by Drs. Barney Jon, Deloris Johnson, Brock Hdz and colleagues, with an educational annamaria from [employer]. Review of Systems Const Denies body aches, Denies chills, Denies fever(s) and Denies headache(s) ENT Reports as per HPI, Denies dizziness, Denies ear discharge, Denies otalgia, Denies headache(s), Denies nasal discharge, Denies sinus pain and Denies sore throat Card Denies chest pain, Denies lightheadedness and Denies dyspnea Resp Denies cough, Denies dyspnea and Denies wheezing GI Denies abdominal pain Neuro Denies dizziness and Denies headache(s) Aller/Immun Denies wheezing Physical exam (Primary Care) Vital Signs: Last Vital Signs Pulse 62 02/05/23 13:17 BP 168/82 H 02/05/23 13:17 Pulse Ox 98 02/05/23 13:17 Oxygen Delivery Method Room Air 02/05/23 13:17 BMI result Body Mass Index 25.8 Tobacco/Smoking Status: Tobacco use Status Tobacco use date assessed 09/29/22 02/05/23 13:21 Patient Tobacco Use Status Current everyday Tobacco 02/05/23 13:21 Tobacco use type Cigar 02/05/23 13:21 e-Cigarette/Vaping Use Never Used 02/05/23 13:21 Thrive Assessment: Date of Thrive Assessment Date Thrive assessed 09/10/22 02/05/23 13:21 Const General: cooperative and no acute distress Orientation/consciousness: patient oriented x3 HENMT Other: Bilateral TM partially obstructed by cerumen, status post bilateral ear lavage bilateral ear canal clean, TMs normal Head: Yes normocephalic and Yes atraumatic Face and sinus: Yes sinuses nontender Mouth: oropharynx normal and moist mucous membranes Throat: Yes posterior oropharynx normal Eyes General: appearance normal, both eyes and all related structures Neck Neck: Yes normal visual inspection and Yes full ROM Resp Effort & Inspection: normal respiratory effort and able to speak in complete sentences Auscultation: clear to auscultation bilaterally, no crackles, no rales, no rhonchi and no wheezes Cardio Rate: regular rate Rhythm: regular rhythm Heart sounds: S1 normal heart sound present and S2 normal heart sound present GI Auscultation: normal bowel sounds Skin General skin exam: no rashes or lesions noted Neuro General: patient oriented x3 Gait exam (Neuro): Normal gait present Extrem General: Yes full ROM Office Procedures Cerumen Removal From which ear canal was the cerumen removed: bilateral Removal: irrigation and otoscope w/curette Notes: patient tolerated procedure well, no complications and ear canal clear [id number] Wax Removal by Spoon/Curette Assessment and Plan Assessment & Plan (1) Excessive cerumen in both ear canals: Code(s): H61.23 - Impacted cerumen, bilateral Plan: Bilateral TM partially obstructed by cerumen, status post bilateral ear lavage bilateral ear canal clean, TMs normal. Patient tolerated well Coding Level of Care Code Est Pt Level 2 (42184) Diagnoses Excessive cerumen in both ear canals H61.23 CPT Codes Office Procedure - CPT: 89462-Tqh Wax Removal by Spoon/Curette ([id number])
== END 2023-02-05 14:15 | disposition home or self-care (01) ==
PROVIDERS: PCP Internal Medicine; Visit Provider Nurse Practitioner Family
DX: H61.23 Impacted cerumen, bilateral (principal)
CPT/HCPCS: 69210; 99212

== ENCOUNTER 2023-05-14 09:18 | Outpatient (REF) | payer MEDICARE, SELFPAY | END 2023-05-14 09:19 | disposition home or self-care (01) | LOC: HO.SH 09:18 | PROVIDERS: Visit Provider Internal Medicine | DX: H90.3 Sensorineural hearing loss, bilateral (principal) | CPT/HCPCS: 92557; 92567 ==

== ENCOUNTER 2023-05-14 10:41 | Outpatient (REF) | payer SELFPAY ==
--- NOTE | 2023-05-14 12:43 | MHC.AU.MED ---
Medical Clearance for Hearing Instrumentation Date: 05/14/23 Patient Name: Konstantin Razo Date of : 1935 Primary Care Provider: Referring Provider: Jean Saclido MD We have seen your patient on 05/14/23 and have determined that they are a candidate for amplification (See accompanying report). Specifically, they would benefit from: Hearing aid use in both ears There is a statute that addresses Medical Evaluation Requirements prior to fitting a patient with a hearing aid. According to [place] statute 265 CMR:6.03(1), (a) General. Except as provided in 265 CMR 6.03(1)(b), a yarn spinner shall not sell a hearing aid unless the prospective user has presented to the yarn spinner a written statement signed by a licensed physician that states that the patient's hearing loss has been medically evaluated and the patient may be considered a candidate for a hearing aid. The medical evaluation must have taken place within the preceding six months. Please note: Due to the [place] Statute referenced above, we cannot accept a signature other than that of a licensed physician. TELEVISION MAINTENANCE MAN and PA signatures cannot be accepted. I am in agreement with the above recommendation. There is no medical contraindication for hearing instrumentation. Physician Signature Date Physician Name (Printed)
== END 2023-05-14 10:42 | disposition home or self-care (01) ==
LOC: HO.HAP 10:41
PROVIDERS: Visit Provider Internal Medicine
DX: Z46.1 Encounter for fitting and adjustment of hearing aid (principal); H90.3 Sensorineural hearing loss, bilateral
CPT/HCPCS: 92591

== ENCOUNTER 2023-05-20 06:55 | Outpatient (REF) | payer MEDICARE, SELFPAY ==
[2023-05-20 07:09] LABS: MANUAL DIFF FLAG NO
[2023-05-20 07:37] LABS: Basophils Percent Auto 0.4 % (0-2); Eosinophils Absolute Auto 0.3 X10*3/uL (0.0-0.4); Eosinophils Percent Auto 4.4 % (0-4); Hematocrit 46.8 % (42.0-52.0); Imm Gran Abs Auto 0.02 X10*3/uL (0.00-0.03); Imm Gran Pct Auto 0.3 % (0.0-0.4); Lymphocytes Absolute Auto 1.8 X10*3/uL (1.2-4.9); Mean Corpuscular HGB Conc 34.2 g/dl (31.0-36.0); Mean Corpuscular Hemoglobin 31.9 pg (27.0-33.0); Mean Corpuscular Volume 93.2 fL (80.0-98.0); Mean Platelet Volume 9.8 fL (9.4-12.4); Monocytes Absolute Auto 0.6 X10*3/uL (0.1-1.2); Monocytes Percent Auto 8.6 % (2-11); Neutrophils Percent Auto 59.3 % (45-73); Platelet Count 177 X10*3/uL (160-400); Red Blood Count 5.02 X10*6/uL (4.60-5.80); Red Cell Distribution Width 12.3 % (11.0-16.0); White Blood Count 6.8 X10*3/uL (4.8-10.8)
[2023-05-20 07:58] LABS: Alanine Aminotransferase 18 U/L (0-40); Albumin Level 4.3 g/dL (3.5-5.0); Alkaline Phosphatase 55 U/L (39-117); Anion Gap 12 (12-20); Aspartate Amino Transferase 22 U/L (5-37); Bilirubin Total 0.8 mg/dL (0.0-1.0); Blood Urea Nitrogen 16 mg/dL (9-16); Calcium 9.4 mg/dL (8.4-10.2); Carbon Dioxide 31 mmol/L (22-29); Chloride 103 mmol/L (96-108); Cholesterol 147 mg/dL (<200); Estimated Glomerular Filt Rate > 60; Glucose Fasting 95 mg/dL (60-99); HDL Cholesterol 57 mg/dL (>40); LDL Cholesterol Calculated 77 mg/dL (<100); Potassium 3.8 mmol/L (3.3-5.1); Sodium 142 mmol/L (135-145); Total Protein 7.2 g/dL (6.5-8.0); Triglycerides 67 mg/dL (<150)
[2023-05-20 08:06] LABS: Thyroid Stimulating Hormone 0.88 uIU/mL (0.32-4.0)
== END 2023-05-20 06:56 | disposition home or self-care (01) ==
LOC: HO.LAB 06:55
PROVIDERS: PCP Internal Medicine; Visit Provider Internal Medicine
DX: E78.5 Hyperlipidemia, unspecified (principal); N28.9 Disorder of kidney and ureter, unspecified; D64.9 Anemia, unspecified; E03.9 Hypothyroidism, unspecified
CPT/HCPCS: 36415; 80053; 80061; 84443; 85025

== ENCOUNTER 2023-05-21 13:49 | Outpatient (AMB) | payer MEDICARE, SELFPAY ==
[2023-05-21 13:53] VITALS: BP 144/68; PULSE 64; O2SAT 98; BMI 25.0
--- NOTE | 2023-05-21 13:53 | A.OFFPC_ITS ---
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: Not Required per policy Accompanied by: Self / Same As Patient Allergies methylprednisolone [METHYLPREDNISOLONE] Allergy (Unknown, Verified 05/21/23 13:53) HIVES Medication List - Last Reconciled 05/21/23 by Jean Salcido MD aspirin 81 mg PO DAILY hydrochlorothiazide 25 mg PO DAILY lovastatin 40 mg PO DAILY Tobacco use date assessed: 05/21/23 Fall risk assessment: No Falls in past year Last assessed Fall Risk: 05/21/23 Dental Screening Dental Screen Date: 05/21/23 Did you have a dental visit in the last 12 months?: Yes Did you have a dental problem in the last 6 months where you did not have access to dental care?: No Was dental information given to patient?: Patient has dentist HPI 4 month f/u HPI Details htn on rx; compliant on meds PFSH Medical History [place] (hard of hearing) Hypertension Lesion of right earlobe Hyperlipidemia Surgical History H/O basal cell carcinoma excision H/O excision of ganglion cyst History of inguinal hernia repair Family History Father CHF (congestive heart failure) Mother Lung cancer Sister No problems noted. Daughter No problems noted. Daughter No problems noted. Daughter No problems noted. Social History Housing: House Are you a primary primary care provider to a significant other at home: No Do you presently have visiting nurse or other home services: No Alcohol intake: current Alcohol intake frequency: 0-2 drinks per day Patient Tobacco Use Status: Current everyday Tobacco user Tobacco use type: Cigar e-Cigarette/Vaping Use: Never Used Second Hand Smoke Exposure: No service: No Current occupational status: retired Cognitive needs: No Hearing needs: Yes (hearing aide) Vision needs: Yes (glasses) Questionnaire PHQ-9 Over the last 2 weeks, how often have you been bothered by any of the following problems? 1. Little interest or pleasure in doing things: not at all 2. Feeling down, depressed, or hopeless: not at all 3. Trouble falling or staying asleep, or sleeping too much: not at all 4. Feeling tired or having little energy: not at all 5. Poor appetite or overeating: not at all 6. Feeling bad about yourself - or that you are a failure or have let yourself or your family down: not at all 7. Trouble concentrating on things, such as reading the newspaper or watching television: not at all 8. Moving or speaking so slowly that other people could have noticed. Or the opposite - being so fidgety or restless that you have been moving around a lot more than usual: not at all 9. Thoughts that you would be better off or of hurting yourself in some way: not at all Total score: 0 Depression Screening Interpretation: Negative Depression Screening Done: Yes 59652 - PHQ-9 Billing: Yes Source: Developed by Drs. Barney Jon, Deloris Johnson, Brock Hdz and colleagues, with an educational annamaria from [employer]. Thrive Questionnaire Date Thrive assessed: 05/21/23 I am a: Patient What is your living situation today?: I have a steady place to live Within the past 12 months, did the food you bought not last and you didn't have the money to get more?: Never true Within the past 12 months, did you worry whether your food would run out before you got money to buy more?: Never true Do you have trouble paying for medicines?: No Do you have trouble getting transportation to medical appointments?: No Do you have trouble paying your heating and electricity bill?: No Do you have trouble taking care of your child, family member or friend?: No Do you have trouble with day-to-day activities such as bathing, preparing meals, shopping, managing finances, etc.?: No Are you currently unemployed and looking for a job?: No Are you interested in more education?: No Please select the resources that you would like help with: None THRIVE Score: 0 AUDIT C Alcohol Use Questionnaire (AUDIT-C) 1. How often do you have a drink containing alcohol?: Monthly or less 2. How many drinks containing alcohol do you have on a typical day when you are drinking?: 1 or 2 3. How often do you have six or more drinks on one occasion?: Never Total Score: 1 Score Reviewed/Action Taken: No MOUSTAPHA-7 AMB Questionnaire MOUSTAPHA-7 Date MOUSTAPHA - 7 assessed: 05/21/23 Feeling nervous, anxious, or on edge: 0 = Not at all Not being able to stop or control worryin = Not at all Worrying too much about different things: 0 = Not at all Trouble relaxin = Not at all Being so restless that it is hard to sit still: 0 = Not at all Becoming easily annoyed or irritable: 0 = Not at all Feeling afraid as if something awful might happen: 0 = Not at all Total MOUSTAPHA-7 score (0-4 normal; 5-9 mild; 10-14 moderate; 15-21 severe): 0 Source: Developed by Drs. Barney Jon, Deloris Johnson, Brock Hdz and colleagues, with an educational annamaria from [employer]. Review of Systems Const Denies chills, Denies headache(s) and Denies weight loss ENT Denies headache(s) Card Denies chest pain, Denies syncope, Denies irregular heart rhythm and Denies dyspnea Resp Denies chest congestion, Denies cough and Denies dyspnea GI Denies abdominal pain, Denies change in stool character, Denies nausea and Denies vomiting Musc Denies deformity and Denies joint swelling Neuro Denies syncope and Denies headache(s) Physical exam (Primary Care) Vital Signs: Last Vital Signs Pulse 64 05/21/23 13:53 BP 144/68 H 05/21/23 13:53 Pulse Ox 98 05/21/23 13:53 Oxygen Delivery Method Room Air 05/21/23 13:53 BMI result Body Mass Index 25.0 Tobacco/Smoking Status: Tobacco use Status Tobacco use date assessed 05/21/23 05/21/23 13:56 Patient Tobacco Use Status Current everyday Tobacco 05/21/23 13:56 Tobacco use type Cigar 05/21/23 13:56 e-Cigarette/Vaping Use Never Used 05/21/23 13:56 PHQ-9: PHQ-9 Score PHQ-9: Total score 0 05/21/23 13:59 Depression Screening Interpretation: Negative Thrive Assessment: Date of Thrive Assessment Date Thrive assessed 05/21/23 05/21/23 13:56 Const General: cooperative, comfortable, no acute distress and alert Neck Neck: Yes no lymphadenopathy Thyroid: Thyroid normal Resp Effort & Inspection: normal respiratory effort Auscultation: clear to auscultation bilaterally Percussion: percussion normal Cardio Jugular venous distension: no JVD Palpation: normal PMI Rate: regular rate Rhythm: regular rhythm Heart sounds: S1 normal heart sound present and S2 normal heart sound present GI Inspection: Yes normal to inspection Palpation (GI): No hepatosplenomegaly present Skin General skin exam: no rashes or lesions noted Extrem General: Yes no clubbing, cyanosis or edema Assessment and Plan Assessment & Plan (1) Hypertension: Code(s): I10 - Essential (primary) hypertension Plan: stable; same rx Orders: Orders Lipid Panel Today E78.5 - Hyperlipidemia, unspecified Coding Level of Care Code Est Pt Level 3 (16646) Diagnoses Hypertension I10
== END 2023-05-21 14:21 | disposition home or self-care (01) ==
PROVIDERS: PCP Internal Medicine; Visit Provider Internal Medicine
DX: I10 Essential (primary) hypertension (principal)
CPT/HCPCS: 99213

== ENCOUNTER 2023-06-05 13:51 | Outpatient (REF) | payer SELFPAY | END 2023-06-05 13:52 | disposition home or self-care (01) | LOC: HO.HAP 13:51 | PROVIDERS: Visit Provider Internal Medicine | DX: Z46.1 Encounter for fitting and adjustment of hearing aid (principal); H90.3 Sensorineural hearing loss, bilateral | CPT/HCPCS: 92700; V5261; V5264; V5299 ==

== ENCOUNTER 2023-06-23 11:21 | Outpatient (REF) | payer SELFPAY | END 2023-06-23 11:22 | disposition home or self-care (01) | LOC: HO.HAP 11:21 | PROVIDERS: Visit Provider Internal Medicine | DX: Z13.89 Encounter for screening for other disorder (principal) ==

== ENCOUNTER 2023-09-18 06:27 | Outpatient (REF) | payer MEDICARE, SELFPAY ==
[2023-09-18 12:15] LABS: Cholesterol 136 mg/dL (<200); HDL Cholesterol 54 mg/dL (>40); LDL Cholesterol Calculated 68 mg/dL (<100); Triglycerides 70 mg/dL (<150)
== END 2023-09-18 06:28 | disposition home or self-care (01) ==
LOC: HO.LAB 06:27
PROVIDERS: PCP Internal Medicine; Visit Provider Internal Medicine
DX: E78.5 Hyperlipidemia, unspecified (principal)
CPT/HCPCS: 36415; 80061

== ENCOUNTER 2023-09-21 09:18 | Outpatient (AMB) | payer MEDICARE, SELFPAY ==
[2023-09-21 09:24] VITALS: BP 142/80; PULSE 57; O2SAT 98; BMI 24.9
--- NOTE | 2023-09-21 09:24 | MHC.PC.OV ---
Vital Signs 09/21/23 09:24 Height 5 ft 6 in Weight 154 lb BMI 24.9 BP 142/80 H Blood Pressure Location Lt brachial Position Sitting Pulse 57 Pulse Source Pulse Oximeter Pulse Oximetry (%) 98 Oxygen Delivery Method Room Air Intake Visit Reasons: 4mth f/u Bpm Architect: Not Required per policy Accompanied by: Self / Same As Patient Allergies methylprednisolone [METHYLPREDNISOLONE] Allergy (Unknown, Verified 09/21/23 09:25) HIVES Medication List - Last Reconciled 09/21/23 by Jean Salcido MD aspirin 81 mg PO DAILY hydrochlorothiazide 25 mg PO DAILY lovastatin 40 mg PO DAILY Tobacco use date assessed: 05/21/23 Fall risk assessment: No Falls in past year Last assessed Fall Risk: 09/21/23 Dental Screening Dental Screen Date: 05/21/23 HPI 4mth f/u HPI Details hypertension on rx; doing well and compliant [facility] Medical History [place] (hard of hearing) Hypertension Lesion of right earlobe Hyperlipidemia Surgical History H/O basal cell carcinoma excision H/O excision of ganglion cyst History of inguinal hernia repair Family History Father CHF (congestive heart failure) Mother Lung cancer Sister No problems noted. Daughter No problems noted. Daughter No problems noted. Daughter No problems noted. Social History Housing: House Are you a primary infant caregiver to a significant other at home: No Do you presently have visiting nurse or other home services: No Alcohol intake: current Alcohol intake frequency: 0-2 drinks per day Patient Tobacco Use Status: Current everyday Tobacco user Tobacco use type: Cigar e-Cigarette/Vaping Use: Never Used Second Hand Smoke Exposure: No service: No Current occupational status: retired Cognitive needs: No Hearing needs: Yes (hearing aide) Vision needs: Yes (glasses) Questionnaire Thrive Questionnaire Date Thrive assessed: 05/21/23 MOUSTAPHA-7 AMB Questionnaire MOUSTAPHA-7 Date MOUSTAPHA - 7 assessed: 05/21/23 Source: Developed by Drs. Barney Jon, Deloris Brock Ortega and colleagues, with an educational annamaria from [employer]. Review of Systems Const Denies chills, Denies headache(s) and Denies weight loss ENT Denies headache(s) Card Denies chest pain, Denies syncope, Denies irregular heart rhythm and Denies dyspnea Resp Denies chest congestion, Denies cough and Denies dyspnea GI Denies abdominal pain, Denies change in stool character, Denies nausea and Denies vomiting Musc Denies deformity and Denies joint swelling Neuro Denies syncope and Denies headache(s) Physical exam (Primary Care) Vital Signs: Last Vital Signs Pulse 57 09/21/23 09:24 BP 142/80 H 09/21/23 09:24 Pulse Ox 98 09/21/23 09:24 Oxygen Delivery Method Room Air 09/21/23 09:24 BMI result Body Mass Index 24.9 Tobacco/Smoking Status: Tobacco use Status Tobacco use date assessed 05/21/23 09/21/23 09:25 Patient Tobacco Use Status Current everyday Tobacco 09/21/23 09:25 Tobacco use type Cigar 09/21/23 09:25 e-Cigarette/Vaping Use Never Used 09/21/23 09:25 Thrive Assessment: Date of Thrive Assessment Date Thrive assessed 05/21/23 09/21/23 09:25 Const General: cooperative, comfortable, no acute distress and alert Neck Neck: Yes no lymphadenopathy Thyroid: Thyroid normal Resp Effort & Inspection: normal respiratory effort Auscultation: clear to auscultation bilaterally Percussion: percussion normal Cardio Jugular venous distension: no JVD Palpation: normal PMI Rate: regular rate Rhythm: regular rhythm Heart sounds: S1 normal heart sound present and S2 normal heart sound present GI Inspection: Yes normal to inspection Palpation (GI): No hepatosplenomegaly present Skin General skin exam: no rashes or lesions noted Extrem General: Yes no clubbing, cyanosis or edema Assessment and Plan Assessment & Plan (1) Hypertension: Code(s): I10 - Essential (primary) hypertension Plan: stable; same rx Orders: Orders Lipid Panel Today Z13.220 - Encounter for screening for lipoid disorders Coding Level of Care Code Est Pt Level 3 (57237) Diagnoses Hypertension I10
== END 2023-09-21 09:51 | disposition home or self-care (01) ==
PROVIDERS: PCP Internal Medicine; Visit Provider Internal Medicine
DX: I10 Essential (primary) hypertension (principal)
CPT/HCPCS: 99213

== ENCOUNTER 2024-01-21 06:30 | Outpatient (REF) | payer MEDICARE, SELFPAY ==
[2024-01-21 08:00] LABS: Cholesterol 151 mg/dL (<200); HDL Cholesterol 64 mg/dL (>40); LDL Cholesterol Calculated 67 mg/dL (<100); Triglycerides 100 mg/dL (<150)
== END 2024-01-21 06:31 | disposition home or self-care (01) ==
LOC: HO.LAB 06:30
PROVIDERS: PCP Internal Medicine; Visit Provider Internal Medicine
DX: Z13.220 Encounter for screening for lipoid disorders (principal)
CPT/HCPCS: 36415; 80061

== ENCOUNTER 2024-01-22 09:16 | Outpatient (AMB) | payer MEDICARE, SELFPAY ==
--- NOTE | 2024-01-22 09:24 | MHC.PC.OV ---
Vital Signs 01/22/24 09:25 Height 5 ft 6 in Weight 155 lb 4 oz BMI 25.1 BP 120/70 Blood Pressure Location Lt brachial Position Sitting Pulse 69 Pulse Source Pulse Oximeter Pulse Oximetry (%) 97 Oxygen Delivery Method Room Air Intake Visit Reasons: 4 mo f/u Intake Note: Patient is here to follow up on HTN, HLD. Cosmetic Sales Required: No Waste Elimination: Not Required per policy Accompanied by: Self / Same As Patient Allergies methylprednisolone [METHYLPREDNISOLONE] Allergy (Unknown, Verified 01/22/24 09:24) HIVES Medication List - Last Reconciled 01/22/24 by Jean Salcido MD aspirin 81 mg PO DAILY hydrochlorothiazide 25 mg PO DAILY lovastatin 40 mg PO DAILY Tobacco use date assessed: 01/22/24 Fall risk assessment: No Falls in past year Last assessed Fall Risk: 01/22/24 Dental Screening Dental Screen Date: 05/21/23 HPI 4 mo f/u HPI Details HTN on Rx; doing well; compliant PFSH Medical History [place] (hard of hearing) Hypertension Lesion of right earlobe Hyperlipidemia Surgical History H/O basal cell carcinoma excision H/O excision of ganglion cyst History of inguinal hernia repair Family History Father CHF (congestive heart failure) Mother Lung cancer Sister No problems noted. Daughter No problems noted. Daughter No problems noted. Daughter No problems noted. Social History Housing: House Are you a primary primary health care nurse to a significant other at home: No Do you presently have visiting nurse or other home services: No Alcohol intake: current Alcohol intake frequency: 0-2 drinks per day Patient Tobacco Use Status: Current everyday Tobacco user Tobacco use type: Cigar Cigarettes Per Day: 1 e-Cigarette/Vaping Use: Never Used Second Hand Smoke Exposure: Yes service: No Current occupational status: retired Cognitive needs: No Hearing needs: Yes (hearing aide) Vision needs: Yes (glasses) Questionnaire Thrive Questionnaire Date Thrive assessed: 05/21/23 MOUSTAPHA-7 AMB Questionnaire MOUSTAPHA-7 Date MOUSTAPHA - 7 assessed: 05/21/23 Source: Developed by Drs. Barney Jon, Deloris Johnson, Brock Hdz and colleagues, with an educational annamaria from [employer]. Review of Systems Const Denies chills, Denies headache(s) and Denies weight loss ENT Denies headache(s) Card Denies chest pain, Denies syncope, Denies irregular heart rhythm and Denies dyspnea Resp Denies chest congestion, Denies cough and Denies dyspnea GI Denies abdominal pain, Denies change in stool character, Denies nausea and Denies vomiting Musc Denies deformity and Denies joint swelling Neuro Denies syncope and Denies headache(s) Physical exam (Primary Care) Vital Signs: Last Vital Signs Pulse 69 01/22/24 09:25 BP 120/70 01/22/24 09:25 Pulse Ox 97 01/22/24 09:25 Oxygen Delivery Method Room Air 01/22/24 09:25 BMI result Body Mass Index 25.1 Tobacco/Smoking Status: Tobacco use Status Tobacco use date assessed 01/22/24 01/22/24 09:29 Patient Tobacco Use Status Current everyday Tobacco 01/22/24 09:29 Tobacco use type Cigar 01/22/24 09:29 e-Cigarette/Vaping Use Never Used 01/22/24 09:29 Thrive Assessment: Date of Thrive Assessment Date Thrive assessed 05/21/23 01/22/24 09:29 Const General: cooperative, comfortable, no acute distress and alert Neck Neck: Yes no lymphadenopathy Thyroid: Thyroid normal Resp Effort & Inspection: normal respiratory effort Auscultation: clear to auscultation bilaterally Percussion: percussion normal Cardio Jugular venous distension: no JVD Palpation: normal PMI Rate: regular rate Rhythm: regular rhythm Heart sounds: S1 normal heart sound present and S2 normal heart sound present GI Inspection: Yes normal to inspection Palpation (GI): No hepatosplenomegaly present Skin General skin exam: no rashes or lesions noted Extrem General: Yes no clubbing, cyanosis or edema Coding Level of Care Code Est Pt Level 3 (01703) Diagnoses Hypertension I10 Assessment & Plan Assessment & Plan (1) Hypertension: Code(s): I10 - Essential (primary) hypertension Category: Medical Plan: stable; same rx
[2024-01-22 09:25] VITALS: BP 120/70; PULSE 69; O2SAT 97; BMI 25.1
== END 2024-01-22 09:46 | disposition home or self-care (01) ==
PROVIDERS: PCP Internal Medicine; Visit Provider Internal Medicine
DX: I10 Essential (primary) hypertension (principal)

== ENCOUNTER → 2024-01-22 09:16 | Outpatient (BNVA) | payer MEDICARE, SELFPAY | PROVIDERS: PCP Internal Medicine; Visit Provider Internal Medicine | DX: I10 Essential (primary) hypertension (principal) | CPT/HCPCS: 99212 ==

== ENCOUNTER 2024-05-06 10:21 | Outpatient (AMB) | payer MEDICARE, SELFPAY ==
--- NOTE | 2024-05-06 10:23 | A.OFFPC_ITS ---
Vital Signs 05/06/24 10:27 Height 5 ft 6 in Weight 156 lb 4 oz BMI 25.2 BP 120/70 Blood Pressure Location Lt brachial Position Sitting Pulse 61 Pulse Source Pulse Oximeter Temp 97.3 F Temp Source Temporal Artery Scan Pulse Oximetry (%) 97 Oxygen Delivery Method Room Air Intake Visit Reasons: 4mth f/u Intake Note: Patient is here to follow up on HTN, HLD. Tax Commissioner Required: No Clinical Rn: Not Required per policy Accompanied by: Self / Same As Patient Allergies methylprednisolone [METHYLPREDNISOLONE] Allergy (Unknown, Verified 05/06/24 10:26) HIVES Medication List - Last Reconciled 05/06/24 by Jean Salcido MD aspirin 81 mg PO DAILY hydrochlorothiazide 25 mg PO DAILY lovastatin 40 mg PO DAILY Tobacco use date assessed: 05/06/24 Fall risk assessment: No Falls in past year Last assessed Fall Risk: 05/06/24 Dental Screening Dental Screen Date: 05/06/24 Did you have a dental visit in the last 12 months?: Yes Did you have a dental problem in the last 6 months where you did not have access to dental care?: No Was dental information given to patient?: Patient has dentist HPI 4mth f/u HPI Details HTN and hyperlip on rx; doing well and compiant PFSH Medical History [place] (hard of hearing) Hypertension Lesion of right earlobe Hyperlipidemia Surgical History H/O basal cell carcinoma excision H/O excision of ganglion cyst History of inguinal hernia repair Family History Father CHF (congestive heart failure) Mother Lung cancer Sister No problems noted. Daughter No problems noted. Daughter No problems noted. Daughter No problems noted. Social History Housing: House Are you a primary client care representative to a significant other at home: No Do you presently have visiting nurse or other home services: No Alcohol intake: current Alcohol intake frequency: 0-2 drinks per day Patient Tobacco Use Status: Current everyday Tobacco user Tobacco use type: Cigar Cigarettes Per Day: 1 e-Cigarette/Vaping Use: Never Used Second Hand Smoke Exposure: Yes service: No Current occupational status: retired Cognitive needs: No Hearing needs: Yes (hearing aide) Vision needs: Yes (glasses) Questionnaire PHQ-9 Over the last 2 weeks, how often have you been bothered by any of the following problems? 1. Little interest or pleasure in doing things: not at all 2. Feeling down, depressed, or hopeless: not at all 3. Trouble falling or staying asleep, or sleeping too much: not at all 4. Feeling tired or having little energy: not at all 5. Poor appetite or overeating: not at all 6. Feeling bad about yourself - or that you are a failure or have let yourself or your family down: not at all 7. Trouble concentrating on things, such as reading the newspaper or watching television: not at all 8. Moving or speaking so slowly that other people could have noticed. Or the opposite - being so fidgety or restless that you have been moving around a lot more than usual: not at all 9. Thoughts that you would be better off or of hurting yourself in some way: not at all Total score: 0 Depression Screening Interpretation: Negative Depression Screening Done: Yes Source: Developed by Drs. Barney Jon, Deloris Johnson, Brock Hdz and colleagues, with an educational annamaria from [employer]. Thrive Questionnaire Date Thrive assessed: 05/06/24 I am a: Patient What is your living situation today?: I have a steady place to live Within the past 12 months, did the food you bought not last and you didn't have the money to get more?: Never true Within the past 12 months, did you worry whether your food would run out before you got money to buy more?: Never true Do you have trouble paying for medicines?: No Do you have trouble getting transportation to medical appointments?: No Do you have trouble paying your heating and electricity bill?: No Do you have trouble taking care of your child, family member or friend?: No Do you have trouble with day-to-day activities such as bathing, preparing meals, shopping, managing finances, etc.?: No Are you currently unemployed and looking for a job?: No Are you interested in more education?: No Please select the resources that you would like help with: None Currently or been in a relationship where the following occur: No concerns reported THRIVE Score: 0 AUDIT C Alcohol Use Questionnaire (AUDIT-C) 1. How often do you have a drink containing alcohol?: Monthly or less 2. How many drinks containing alcohol do you have on a typical day when you are drinking?: 1 or 2 Total Score: 1 MOUSTAPHA-7 AMB Questionnaire MOUSTAPHA-7 Date MOUSTAPHA - 7 assessed: 05/06/24 Feeling nervous, anxious, or on edge: 0 = Not at all Not being able to stop or control worryin = Not at all Worrying too much about different things: 0 = Not at all Trouble relaxin = Not at all Being so restless that it is hard to sit still: 0 = Not at all Becoming easily annoyed or irritable: 0 = Not at all Feeling afraid as if something awful might happen: 0 = Not at all Total MOUSTAPHA-7 score (0-4 normal; 5-9 mild; 10-14 moderate; 15-21 severe): 0 Source: Developed by Drs. Barney Jon, Deloris Johnson, Brock Hdz and colleagues, with an educational annamaria from [employer]. Review of Systems Const Denies chills, Denies headache(s) and Denies weight loss ENT Denies headache(s) Card Denies chest pain, Denies syncope, Denies irregular heart rhythm and Denies dyspnea Resp Denies chest congestion, Denies cough and Denies dyspnea GI Denies abdominal pain, Denies change in stool character, Denies nausea and Denies vomiting Musc Denies deformity and Denies joint swelling Neuro Denies syncope and Denies headache(s) Physical exam (Primary Care) Vital Signs: Last Vital Signs Temp 97.3 F 05/06/24 10:27 Pulse 61 05/06/24 10:27 BP 120/70 05/06/24 10:27 Pulse Ox 97 05/06/24 10:27 Oxygen Delivery Method Room Air 05/06/24 10:27 BMI result Body Mass Index 25.2 Tobacco/Smoking Status: Tobacco use Status Tobacco use date assessed 05/06/24 05/06/24 10:27 Patient Tobacco Use Status Current everyday Tobacco 05/06/24 10:27 Tobacco use type Cigar 05/06/24 10:27 e-Cigarette/Vaping Use Never Used 05/06/24 10:27 PHQ-9: PHQ-9 Score PHQ-9: Total score 0 05/06/24 10:27 Depression Screening Interpretation: Negative Thrive Assessment: Date of Thrive Assessment Date Thrive assessed 05/06/24 05/06/24 10:27 Currently or been in a relationship where the following occur: No concerns reported Const General: cooperative, comfortable, no acute distress and alert Neck Neck: Yes no lymphadenopathy Thyroid: Thyroid normal Resp Effort & Inspection: normal respiratory effort Auscultation: clear to auscultation bilaterally Percussion: percussion normal Cardio Jugular venous distension: no JVD Palpation: normal PMI Rate: regular rate Rhythm: regular rhythm Heart sounds: S1 normal heart sound present and S2 normal heart sound present GI Inspection: Yes normal to inspection Palpation (GI): No hepatosplenomegaly present Skin General skin exam: no rashes or lesions noted Extrem General: Yes no clubbing, cyanosis or edema Coding Level of Care Code Est Pt Level 3 (92760) Diagnoses Hypertension I10 Assessment & Plan Assessment & Plan (1) Hypertension: Code(s): I10 - Essential (primary) hypertension Category: Medical Plan: stable; same rx
[2024-05-06 10:27] VITALS: BP 120/70; PULSE 61; TEMP 36.3; O2SAT 97; BMI 25.2
--- OUTSIDE RECORDS SUMMARY | 2024-05-06 11:36 | XMS_ITS ---
Author Name [facility] Organization Unknown Results Test Name/Text Value Interpretation Date Range Source Ethanol SerPl-mCnc 196mg/dL Above high normal [id number] - 11 [facility] Globulin Ser Calc-mCnc 2.6g/dL Normal [id number] 1.5 - 3.9 [facility] ALT SerPl-cCnc 16U/L Normal [id number] 10 - 55 HH CCT AST SerPl-cCnc 27U/L Normal [id number] 10 - 55 HH CCT GFR/BSA.pred SerPlBld [id number]-[id number]-GcVXyo 85 Normal [id number] 59 - [facility] Albumin SerPl-mCnc 4.3g/dL Normal [id number] 3.4 - 4. 8 [facility] Albumin/Glob SerPl 1.7Ratio Normal [id number] [facility] Creat SerPl-mCnc 0.8mg/dL Normal [id number] 0.5 - 1.3 [facility] Bilirub SerPl-mCnc 0.4mg/dL Normal [id number] 0.2 - 1 [facility] Anion Gap Bld-sCnc 11 Normal [id number] 7 - 17 [facility] Sodium SerPl-sCnc 139mmol/L Normal [id number] 136 - 145 [facility] Potassium SerPl-sCnc 3.2mmol/L Below low normal [id number] 3.4 - 5.3 [facility] Chloride SerPl-sCnc 99mmol/L Normal [id number] 98 - 10 7 [facility] Glucose SerPl-mCnc 123mg/dL Above high normal [id number] 65 - 99 [facility] Prot SerPl-mCnc 6.9g/dL Normal [id number] 6.3 - 8.3 [facility] BUN/Creat SerPl 20Ratio Normal [id number] 10 - 25 [facility] Calcium SerPl-mCnc 8.9mg/dL Normal [id number] 8.7 - 10 .5 [facility] CO2 SerPl-sCnc 29mmol/L Normal [id number] 22 - 33 HH CCT BUN SerPl-mCnc 16mg/dL Normal 8 - 21 HH CCT ALP SerPl-cCnc 56U/L Normal 45 - 128 HH CCT INR PPP 1 Normal [id number] [facility] Prothrombin time 11.7seconds Normal [id number] 10 - 13. 5 [facility] WBC num/area UrnS HPF 0perhpf Normal [id number] 0 - 4 [facility] Squamous num/area UrnS HPF 1PERHPF Normal [id number] [facility] Bacteria UrnS Ql Micro Abnormal [id number] - [facility] RBC num/area UrnS HPF 0perhpf Normal [id number] 0 - 4 [facility] Imm Granulocytes/leuk NFr Bld Auto 0.4% Normal [id number] [facility] Lymphocytes/leuk NFr Bld Auto 22.9% Normal [id number] [facility] PMV Bld Auto 9.3fL Normal [id number] 7.5 - 12.[address] Monocytes num Bld Auto 0.28Thou/uL Normal [id number] 0.2 - 1.5 [facility] Hct VFr Bld Auto 43.1% Normal [id number] 39 - 54 [facility] Neutrophils num Bld Auto 3.91Thou/uL Normal [id number] 2 - 7.5 [facility] Neutrophils/leuk NFr Bld Auto 68.5% Normal [id number] [facility] Basophils/leuk NFr Bld Auto 0.5% Normal [id number] [facility] Basophils num Bld Auto 0.03Thou/uL Normal [id number] 0 - 0.2 [facility] Monocytes/leuk NFr Bld Auto 4.9% Normal [id number] [facility] Eosinophil num Bld Auto 0.16Thou/uL Normal [id number] 0 - 0.7 [facility] MCH RBC Qn Auto 31.5pg Above high normal [id number] 27 - 31 [facility] Eosinophil/leuk NFr Bld Auto 2.8% Normal [id number] [facility] Imm Granulocytes num Bld Auto 0.02Thou/uL Normal [id number] 0 - 0.1 [facility] RDW RBC Auto-Rto 12.1% Normal [id number] 11.5 - 14. 5 [facility] Platelet num Bld Auto 147Thou/uL Below low normal [id number] 150 - 450 [facility] MCHC RBC Auto-mCnc 33.9g/dL Normal [id number] 30 - 36 [facility] MCV RBC Auto 93fL Normal [id number] 80 - 100 [facility] T WBC num Bld Auto 5.7Thou/uL Normal [id number] 4 - 11 [facility] RBC num Bld Auto 4.63Mil/uL Normal [id number] 4.5 - 6.2 [facility] Hgb Bld-mCnc 14.6g/dL Normal [id number] 13 - 17.7 [facility] T Lymphocytes num Bld Auto 1.31Thou/uL Below low normal [id number] 1.5 - 4.5 [facility] Ketones Ur Strip-mCnc Normal [id number] - [facility] Prot Ur Strip-mCnc Normal [id number] - [facility] Glucose Ur Strip-mCnc Normal [id number] - [facility] Nitrite Ur Ql Strip Normal [id number] - [facility] Leukocyte esterase Ur Ql Strip Normal [id number] - [facility] Bilirub Ur Strip-mCnc Normal [id number] - [facility] Sp Gr Ur Strip 1.005 Normal [id number] 1.003 - 1.03 [facility] pH Ur Strip 6 Normal [id number] 5 - 8 [facility] Color Ur Normal [id number] [facility] Clarity Ur Normal [id number] [facility] Hgb Ur Ql Strip Abnormal [id number] - H [facility] Anticoagulant NO ANTI COAGULANT MEDS Normal [id number] [facility]
--- OUTSIDE RECORDS SUMMARY | 2024-05-06 11:36 | XMS_ITS | Clinical Summary ---
Author Organization Formerly [facility] Address [address] [place] [address] Care Team Providers Care Fermentation Scientist Name Role Phone Pcp, No Primary Care Provider Unavailabl e Allergies No known active allergies Encounters Date Type Department Care Team Description 04/25/2024 4:51 PM EST - 04/25/2024 10:08 PM EST Emergency [facility] Emergency Department [address] [place] [id number] Franky Shine MD Alcohol abuse (Primary Dx); Fall from chair Discharge Disposition: Home or Self Care 04/25/2024 Travel from Last 3 Months Social History Tobacco Use Types Packs/Day Years Used Date Smoking Tobacco: Never Assessed Sex and Gender Information Value Date Recorded Sex Assigned at Male 04/25/2024 6:48 PM EST Gender Identity Male 04/25/2024 6:48 PM EST Sexual Orientation Choose not to disclose 2024 6:48 PM EST Last Filed Vital Signs Vital Sign Reading Time Taken Comments Blood Pressure 161/77 04/25/2024 9:06 PM EST Pulse 69 04/25/2024 9:06 PM EST Temperature 36.4 ??C (97.6 ??F) 04/25/2024 6:31 PM ES T Respiratory Rate 18 04/25/2024 9:06 PM EST Oxygen Saturation 97% 04/25/2024 9:06 PM EST Inhaled Oxygen Concentration - - Weight - - Height - - Body Mass Index - - Plan of Treatment Health Maintenance Due Date Last Done Comments DTaP/Tdap/Td Vaccines (1 - Tdap) 09/05/1954 Pneumococcal Vaccines 50+ (1 of 1 - PCV) 09/05/1985 Zoster (Shingles) Vaccine (1 of 2) 09/05/1985 RSV Vaccine 60 years and older and Patients (1 - 1-dose 75+ series) 09/05/2010 Influenza Vaccine 10/01/2023 COVID-19 Vaccine (3 - 2023-2 5 season) 2023 12/26/2020, 04/03/2020 Hepatitis B Vaccines Aged Out No long er eligible based on patient's age to complete this topic Procedures Procedure Name Priority Date/Time Associated Diagnosis Comments ETHANOL, BLOOD STAT 04/25/2024 5:48 PM EST PROTIME-INR STAT 04/25/2024 5:48 PM EST COMPREHENSIVE METABOLIC PANEL STAT 04/25/2024 5:48 PM EST COMPLETE BLOOD COUNT, WITH DIFFERENTIAL STAT 04/25/2024 5:48 PM EST URINALYSIS W/ REFLEX TO MICROSCOPIC AND CULTURE STAT 04/25/2024 5:[address] CERVICAL SPINE W/O CONTRAST STAT 04/25/2024 5:[address] HEAD W/O CONTRAST STAT 04/25/2024 5:08 PM EST from Last 3 Months Results * (ABNORMAL) Complete Blood Count, with Differential (04/25/2024 5:48 PM EST) Pathologist [facility] Emergency Department White Blood Cell Count 5.7 4.0 - 11.0 Thou/uL 04/25/2024 6:01 PM [facility] Platelet Count 147(L) 150 - 450 Thou/uL 04/25/2024 6:01 PM [facility] Hemoglobin 14.6 13.0 - 17.7 g/dL 04/25/2024 6:01 PM [facility] Hematocrit 43.1 39.0 - 54.0 % 04/25/2024 6:01 PM [facility] Red Blood Cell Count 4.63 4.50 - 6.20 Mil/uL 04/25/2024 6:01 PM [facility] MCV 93 80 - 100 fL 04/25/2024 6:01 PM [facility] MCH 31.5(H) 27.0 - 31.0 pg 04/25/2024 6:01 PM [facility] MCHC 33.9 30.0 - 36.0 g/dL 04/25/2024 6:01 PM [facility] RDW 12.1 11.5 - 14.5 % 04/25/2024 6:01 PM [facility] MPV 9.3 7.5 - 12.5 fL 04/25/2024 6:01 PM [facility] Neutrophils Auto 68.5 % 04/25/19 6:01 PM [facility] Immature Granulocytes 0.4 % 04/25/2024 6:01 PM [facility] Lymphocytes Auto 22.9 % 04/25/19 6:01 PM [facility] Monocytes Auto 4.9 % 04/25/2024 6:01 PM [facility] Eosinophils Auto 2.8 % 04/25/19 6:01 PM [facility] Basophils Auto 0.5 % 04/25/2024 6:01 PM [facility] Abs Neutrophils Auto 3.91 2.00 - 7.50 Thou/uL 04/25/2024 6:01 PM [facility] Abs Immature Granulocytes 0.02 0.00 - 0.10 Thou/uL 04/25/2024 6:01 PM [facility] Abs Lymphocytes Auto 1.31(L) 1.50 - 4.50 Thou/uL 04/25/2024 6:01 PM [facility] Abs Monocytes Auto 0.28 0.20 - 1.50 Thou/uL 04/25/2024 6:01 PM [facility] Abs Eosinophils Auto 0.16 0.00 - 0.70 Thou/uL 04/25/2024 6:01 PM [facility] Abs Basophils Auto 0.03 0.00 - 0.20 Thou/uL 04/25/2024 6:01 PM [facility] Blood Blood specimen / Unknown 04/25/2024 5:48 PM EST 04/25/2024 5:58 PM EST Franky Shine MD LAB BLOOD ORDERABL ES [facility] [address] [place] [id number], [address] [address] * INR (04/25/2024 5:48 PM EST) Pathologist [facility] Department Anticoagulant NO ANTI COAGULANT MEDS 04/25/2024 4:50 PM [facility] Prothrombin Time (PT) 11.7 10.0 - 13.5 seconds 04/25/2024 6:06 PM [facility] INR 1.0 04/25/2024 6:06 PM [facility] Comment:INR Therapeutic Rang es: Standard dose anticoagulant 2.0 to 3.0, High dose anticoagulant 2.5-3.5. Blood Plasma specimen / Unknown 04/25/2024 5:48 PM EST 04/25/2024 5:58 PM EST Franky Shine MD LAB BLOOD ORDERABL ES Performing Organization Address City/[facility]/ZIP Co de Phone Number [facility] [address] [place] [address], [place] [address] * (ABNORMAL) Ethanol, Blood (04/25/2024 5:48 PM EST) [facility] Ethanol, Quantitative, Blood 196(H) <11 mg/dL 04/25/2024 6:21 PM [facility] Comment:* FOR MEDICAL PURPOS ES ONLY * Blood (Plasma/Serum) 04/25/2024 5:48 PM EST 04/25/2024 5:58 PM EST Franky Shine MD LAB BLOOD ORDERABL ES [facility] [address] [place] [address], [place] [address] * (ABNORMAL) Comprehensive Metabolic Panel (04/25/2024 5:48 PM EST) [facility] Glucose 123(H) 65 - 99 mg/dL 04/25/2024 6:21 PM [facility] Comment:Fasting: <100 mg/dL, Non-Fasting: <200 mg/dL (ADA 2004) Blood Urea Nitrogen (BUN) 16 8 - 21 mg/dL 04/25/2024 6:21 PM [facility] Creatinine 0.8 0.5 - 1.3 mg/dL 04/25/2024 6:21 PM [facility] eGFR 85 >59 04/25/2024 6:21 PM [facility] Comment:CKD-EPI (2020) in mL /min/1.73 sq meters. Sodium 139 136 - 145 mmol/L 04/25/2024 6:21 PM [facility] Potassium 3.2(L) 3.4 - 5.3 mmol/L 04/25/2024 6:21 PM [facility] Chloride 99 98 - 107 mmol/L 04/25/2024 6:21 PM [facility] CO2 29 22 - 33 mmol/L 04/25/2024 6:21 PM [facility] Calcium 8.9 8.7 - 10.5 mg/dL 04/25/2024 6:21 PM [facility] Alkaline Phosphatase 56 45 - 128 U/L 04/25/2024 6:21 PM [facility] Aspartate Aminotrans (AST) 27 10 - 55 U/L 04/25/2024 6:21 PM [facility] Alanine Aminotrans (ALT) 16 10 - 55 U/L 04/25/2024 6:21 PM [facility] Bilirubin, Total 0.4 0.2 - 1.0 mg/dL 04/25/2024 6:21 PM [facility] Protein, Total 6.9 6.3 - 8.3 g/dL 04/25/2024 6:21 PM [facility] Albumin 4.3 3.4 - 4.8 g/dL 04/25/2024 6:21 PM [facility] BUN/Creatinine Ratio 20 10.0 - 25.0 Ratio 04/25/2024 6:21 PM [facility] Globulin 2.6 1.5 - 3.9 g/dL 04/25/2024 6:21 PM [facility] Albumin/Globulin Ratio 1.7 Ratio 04/25/2024 6:21 PM [facility] Anion Gap 11 7 - 17 04/25/2024 6:21 PM [facility] Blood (Plasma/Serum) 04/25/2024 5:48 PM EST 04/25/2024 5:58 PM EST Franky Shine MD LAB BLOOD ORDERABL ES [facility] [address] [place] [address], [facility] [address] [place] [address] * (ABNORMAL) Urinalysis with Reflex to Microscopic and Culture (04/25/2024 5:46 PM EST) Color Straw 04/25/2024 6:01 PM [facility] Clarity Slightly cloudy 04/25/2024 6:01 PM [facility] Specific [place] 1.005 1.003 - 1.030 04/25/2024 6:01 PM [facility] pH 6.0 5.0 - 8.0 04/25/2024 6:01 PM [facility] Leukocyte Esterase Negative Negative 04/25/2024 6:01 PM [facility] Nitrite Negative Negative 04/25/2024 6:01 PM [facility] Protein Negative Negative 04/25/2024 6:01 PM [facility] Glucose Negative Negative mg/dL 04/25/2024 6:01 PM [facility] Ketones Negative Negative 04/25/2024 6:01 PM [facility] Blood Small(A) Negative 04/25/2024 6:01 PM [facility] Bilirubin Negative Negative 04/25/2024 6:01 PM [facility] WBC 0 0 - 4 per hpf 04/25/2024 6:01 PM [facility] RBC 0 0 - 4 per hpf 04/25/2024 6:01 PM [facility] Bacteria Present(A) Absent 04/25/2024 6:01 PM [facility] Squamous Epithelial Cells 1 PER HPF 04/25/2024 6:01 PM [facility] X-Specimen 16 Voided urine specimen / Unknown 04/25/2024 5:46 PM EST 04/25/2024 5:50 PM EST Franky Shine MD URINE ORDERABLES [facility] [address] [place] [address], [facility] [address] [place] [address] * CT Cervical spine w/o contrast (04/25/2024 5:08 PM EST) Anatomical Region Laterality Modality C-spine Computed Tomogra phy 04/25/2024 5:10 PM EST Impressions 04/25/2024 5:12 PM EST Degenerative change. No fracture. Narrative 04/25/2024 5:[address] CERVICAL SPINE W/O CONTRAST: 04/25/2024 4:53 PM CLINICAL HISTORY: glf, trauma. glf, trauma. COMPARISON: No prior studies for comparison. TECHNIQUE: A CT scan of the cervical spine was performed using 3 mm thick images. ??Soft tissue and bone windows are photographed. ??No contrast was given. ??Sagittal and coronal reformatted images were made. Note: Iterative reconstruction technique was employed to reduce patient radiation exposure. Bony alignment is unremarkable. ??No fracture is identified. There are degenerative changes. No other bony lesion is seen. Procedure Note Alfredo Cabrera MD - 04/25/2024 CT CERVICAL SPINE W/O CONTRAST: 04/25/2024 4:53 PM CLINICAL HISTORY: glf, trauma. glf, trauma. COMPARISON: No prior studies for comparison. TECHNIQUE: A CT scan of the cervical spine was performed using 3 mm thickimages. Soft tissue and bone windows are photographed. No contrast wasgiven. Sagittal and coronal reformatted images were made. Note: Iterative reconstruction technique was employed to reduce patientradiation exposure. Bony alignment is unremarkable. No fracture is identified. There aredegenerative changes. No other bony lesion is seen. IMPRESSION: Degenerative change. No fracture. Franky Shine MD [facility] [place] * CT Head w/o contrast (04/25/2024 5:08 PM EST) Anatomical Region Laterality Modality Head Computed Tomogra phy 04/25/2024 5:09 PM EST Impressions 04/25/2024 5:[address] scan of the brain. ?? Narrative 04/25/2024 5:[address] HEAD W/O CONTRAST: 04/25/2024 4:53 PM CLINICAL HISTORY: glf, trauma. glf, trauma. COMPARISON: No prior studies for comparison. TECHNIQUE: A CT scan of the brain was performed without intravenous contrast. ??Sagittal and coronal reformatted images were made. Note: Iterative reconstruction technique was employed to reduce patient radiation exposure. There is no evidence of extra-axial fluid collection. ??There is no mass or mass effect. ??The ventricular sizes are normal. ??There is no evidence of hemorrhage or edema. ??There is no evidence of acute infarct. Procedure Note Alfredo Cabrera MD - 04/25/2024 CT HEAD W/O CONTRAST: 04/25/2024 4:53 PM CLINICAL HISTORY: glf, trauma. glf, trauma. COMPARISON: No prior studies for comparison. TECHNIQUE: A CT scan of the brain was performed without intravenouscontrast. Sagittal and coronal reformatted images were made. Note: Iterative reconstruction technique was employed to reduce patientradiation exposure. There is no evidence of extra-axial fluid collection. There is no mass ormass effect. The ventricular sizes are normal. There is no evidence ofhemorrhage or edema. There is no evidence of acute infarct. IMPRESSION: Normal CT scan of the brain. Franky Shine MD IMG CT ORDERABLES from Last 3 Months Care Teams Fermentation Scientist Relationship Specialty Start Date End Date Pcp, No PCP - General General Medicine 04/25/24
--- OUTSIDE RECORDS SUMMARY | 2024-05-06 11:36 | XMS_ITS | Encounter Summary ---
Author Organization [facility] Address [address] [place] [address] Care Team Providers Care Assistant Press Operator Name Role Phone Pcp, No Primary Care Provider Unavailabl e Encounter Details Date Type Department Care Team (Latest Contact Info) Description 04/25/2024 Travel Social History Tobacco Use Types Packs/Day Years Used Date Smoking Tobacco: Never Assessed Sex and Gender Information Value Date Recorded Sex Assigned at Male 04/25/2024 6:48 PM EST Gender Identity Male 04/25/2024 6:48 PM EST Sexual Orientation Choose not to disclose 2024 6:48 PM EST documented as of this encounter Plan of Treatment Not on file documented as of this encounter Visit Diagnoses Not on filedocumented in this encounter Care Teams Assistant Press Operator Relationship Specialty Start Date End Date Pcp, No PCP - General General Medicine 04/25/24 documented as of this encounter
--- OUTSIDE RECORDS SUMMARY | 2024-05-06 11:36 | XMS_ITS | Encounter Summary ---
Author Organization [facility] Address [address] [place] [id number] Care Team Providers Care Telecommunications Equipment Installer Name Role Phone Pcp, No Primary Care Provider Unavailabl e Reason for Visit * Reason Comments Fall etoh Alcohol Intoxication Encounter Details Date Type Department Care Team (Late st Contact Info) Description 04/25/2024 4:51 PM EST - 04/25/2024 10:08 PM EST Emergency [facility] Emergency Department [address] [place] [phone] Franky Shine MD [address] [place] [address] Alcohol abuse (Primary Dx); Fall from chair Discharge Disposition: Home or Self Care Social History Tobacco Use Types Packs/Day Years Used Date Smoking Tobacco: Never Assessed Sex and Gender Information Value Date Recorded Sex Assigned at Male 04/25/2024 6:48 PM EST Gender Identity Male 04/25/2024 6:48 PM EST Sexual Orientation Choose not to disclose 2024 6:48 PM EST documented as of this encounter Last Filed Vital Signs Vital Sign Reading Time Taken Comments Blood Pressure 161/77 04/25/2024 9:06 PM EST Pulse 69 04/25/2024 9:06 PM EST Temperature 36.4 ??C (97.6 ??F) 04/25/2024 6:31 PM ES T Respiratory Rate 18 04/25/2024 9:06 PM EST Oxygen Saturation 97% 04/25/2024 9:06 PM EST Inhaled Oxygen Concentration - - Weight - - Height - - Body Mass Index - - documented in this encounter Discharge Instructions * Discharge Instructions* Franky Shine MD - 04/25/2024 6:03 PM EST Follow-up with your primary care physician today. Return to the emergency department for pain, fever, rash, shortness of breath, chest pain, abdominal pain, nausea vomiting, confusion, worsening or new symptoms, or for any other concerns. * Attachments The following attachments cannot be sent through Care Everywhere. * Fall Prevention in the Home Adult (Ecuadorean) * Alcohol Misuse and Nutrition (Ecuadorean) documented in this encounter ED Notes * Pee Reyes RN - 04/25/2024 10:07 PM EST Ride called for patient to bring back to [facility]. Pt able to walk independently and has steady gait. Pee Reyes RN 04/25/242207 * Neli Peterson RN - 04/25/2024 6:38 PM EST Fall bracelet applied, nonskin socks applied, bed alarm on and side rails elevated. Pt req to leave, instructed on necessity of sober ride, unable to provide sober ride at this time. Neli Peterson RN 04/25/24 [id number] * Isabella Anne RN - 04/25/2024 6:30 PM EST Pt rolled off the stretcher and landed on his bilateral knees. Pt did not hit his head. No loc. made aware Isabella Anne RN 04/25/24 478 * Franky Shine MD - 04/25/2024 6:00 PM EST I Reviewed any nurses notes, vital signs, home medication lists, other history or pertinent diagnostic tests available Chief Complaint: Ground-level fall Pain/injury location: None appreciated Duration: Just Prior to arrival Onset:: Acute Severity: Moderate Anticoagulation: No Other Pertinent History: Konstantin Razo is a 88 y.o. male who presents to the emergency department with complaint of ground-level fall, with etiology described as slip and slide [place], admitting to have been drinking alcohol at the time. He denies head strike but is an unreliable witness. No LOC or seizure activity reported and EMS notes no evidence of trauma on their initial exam. Patient has fever chills, chest pain, dyspnea, palpitations, abdominal pain, nausea vomiting, or any other focal complaints. Patient's Medications No medications on file No past medical history on file. Social History Socioeconomic History Marital status: Not on file Spouse name: Not on file Number of children: Not on file Years of education: Not on file Highest education level: Not on file Occupational History Not on file Tobacco Use Smoking status: Not on file Smokeless tobacco: Not on file Substance and Sexual Activity Alcohol use: Not on file Drug use: Not on file Sexual activity: Not on file Other Topics Concern Not on file Social History Narrative Not on file Social Determinants of Health Financial Resource Strain: Not on file Food Insecurity: Not on file Transportation Needs: Not on file Physical Activity: Not on file Stress: Not on file Social Connections: Not on file Housing Stability: Not on file No family history on file. Review of Systems: All of systems times 10 negative except where documented in the HPI or Below Physical Exam: There were no vitals taken for this visit. Vital signs reviewed. Constitutional: Moderate distress Head/Midface: NAD Eyes: Pupils equal and reactive, EOMI, no periorbital tenderness/step- off/deformity, conjunctivae Clear, No Icterus. Ear, Nose, Mouth, Throat: Moist mucous membranes, handling secretions normally. TMs clear and intact, no hemotympanum, no evidence of dental injury, no TMJ tenderness, no malocclusion Neck: No tracheal Deviation, no Stepoffs or deformities, no tenderness Cardiovascular: . Normal heart Sounds S1, S2, no obvious murmur Chest: Normal chest rise, no crepitus, no paradoxical movements, no wounds, Respiratory: Normal breath sounds bilaterally, no wheezes, no rales, no rhonchi. Gastrointestina/Abdominal: No bruising/ecchymosis. No rebound or guarding. Back: No Stepoffs, no ecchymosis. Musculoskeletal: Full range of motion x 4 extremities, no evidence of injury Skin: Normal for age and race, grossly normal temperature and turgor. No acute rash. Neurologic: Alert and appropriate with exception of mildly slurred speech, no apparent acute motor or sensory deficits. CN II through XII intact, normal finger-nose and heel porras bilaterally. Hematologic/Lymphatic: No significant bruising, petechia, or purpura. Medical Decision Making: Patient presents with ground-level fall, with subsequent differential diagnoses including but not limited to: TBI, contusion, fracture, dislocation, strain, sprain, cardiac dysrhythmia/ischemia, electrolyte disturbance, dehydration, anemia, infection/sepsis, alcohol intoxication. I personally viewed the patient's radiologic imaging. My interpretation is: No acute pathology appreciated on CT imaging of the head and neck Consideration for the following additional diagnostic tests was given: Serology, urinalysis Consideration was given for prescribing the following medications: Anti- inflammatories, pain medication, electrolytes, IV fluids, antibiotics, tetanus The following social determinants of health impacted this patient's care: Supportive network and access to medical care noted by self-report I discussed the pertinent elements of the patient's care with the patient. Consideration was given to whether patient would require admission or observation post ED visit: Strongly consider given the above presentation, and with subsequent exam and findings as above, discharge home ultimately anticipated with sobriety calculated for approximately 10 PM and will be signed out to/Dr. Kamara with chart completed accordingly. Franky Shine MD 04/25/242043 documented in this encounter Miscellaneous Notes * ED Update - Franky Shine MD - 04/25/2024 7:20 PM EST ED UPDATE: Is brought to my attention that the patient got out of his bed, and slid to his knees, with no obvious trauma otherwise and no evidence of head strike, confirmed with video review by security services. documented in this encounter Plan of Treatment Not on file documented as of this encounter Procedures Procedure Name Priority Date/Time Associated Diagnosis Comments COMPLETE BLOOD COUNT, WITH DIFFERENTIAL STAT 04/25/2024 5:48 PM EST PROTIME-INR STAT 04/25/2024 5:48 PM EST ETHANOL, BLOOD STAT 04/25/2024 5:48 PM EST COMPREHENSIVE METABOLIC PANEL STAT 04/25/2024 5:48 PM EST URINALYSIS W/ REFLEX TO MICROSCOPIC AND CULTURE STAT 04/25/2024 5:[address] CERVICAL SPINE W/O CONTRAST STAT 04/25/2024 5:[address] HEAD W/O CONTRAST STAT 04/25/2024 5:08 PM EST documented in this encounter Results * (ABNORMAL) Ethanol, Blood (04/25/2024 5:48 PM EST) Ethanol, Quantitative, Blood 196(H) <11 mg/dL 04/25/2024 6:21 PM EST [facility] Comment:* FOR MEDICAL PURPOS ES ONLY * Blood (Plasma/Serum) 04/25/2024 5:48 PM EST 04/25/2024 5:58 PM EST Franky Shine MD LAB BLOOD ORDERABL ES [facility] [address] [place] [address], [facility] [address] [place] [address] * INR (04/25/2024 5:48 PM EST) Anticoagulant NO ANTI COAGULANT MEDS 04/25/2024 4:50 PM EST [facility] Prothrombin Time (PT) 11.7 10.0 - 13.5 seconds 04/25/2024 6:06 PM EST [facility] INR 1.0 04/25/2024 6:06 PM EST [facility] Comment:INR Therapeutic Rang es: Standard dose anticoagulant 2.0 to 3.0, High dose anticoagulant 2.5-3.5. Blood Plasma specimen / Unknown 04/25/2024 5:48 PM EST 04/25/2024 5:58 PM EST Franky Shine MD LAB BLOOD ORDERABL ES [facility] [address] [place] [address], [facility] [address] [place] [address] * (ABNORMAL) Comprehensive Metabolic Panel (04/25/2024 5:48 PM EST) Glucose 123(H) 65 - 99 mg/dL 04/25/2024 6:21 PM [facility] Comment:Fasting: <100 mg/dL, Non-Fasting: <200 mg/dL (ADA 2004) Blood Urea Nitrogen (BUN) 16 8 - 21 mg/dL 04/25/2024 6:21 PM [facility] Creatinine 0.8 0.5 - 1.3 mg/dL 04/25/2024 6:21 PM [facility] eGFR 85 >59 04/25/2024 6:21 PM [facility] Comment:CKD-EPI (2020) in mL /min/1.73 sq meters. Sodium 139 136 - 145 mmol/L 04/25/2024 6:21 PM [facility] Potassium 3.2(L) 3.4 - 5.3 mmol/L 04/25/2024 6:21 PM [facility] Chloride 99 98 - 107 mmol/L 04/25/2024 6:21 PM [facility] CO2 29 22 - 33 mmol/L 04/25/2024 6:21 PM [facility] Calcium 8.9 8.7 - 10.5 mg/dL 04/25/2024 6:21 PM [facility] Alkaline Phosphatase 56 45 - 128 U/L 04/25/2024 6:21 PM [facility] Aspartate Aminotrans (AST) 27 10 - 55 U/L 04/25/2024 6:21 PM [facility] Alanine Aminotrans (ALT) 16 10 - 55 U/L 04/25/2024 6:21 PM [facility] Bilirubin, Total 0.4 0.2 - 1.0 mg/dL 04/25/2024 6:21 PM [facility] Protein, Total 6.9 6.3 - 8.3 g/dL 04/25/2024 6:21 PM [facility] Albumin 4.3 3.4 - 4.8 g/dL 04/25/2024 6:21 PM [facility] BUN/Creatinine Ratio 20 10.0 - 25.0 Ratio 04/25/2024 6:21 PM [facility] Globulin 2.6 1.5 - 3.9 g/dL 04/25/2024 6:21 PM [facility] Albumin/Globulin Ratio 1.7 Ratio 04/25/2024 6:21 PM [facility] Anion Gap 11 7 - 17 04/25/2024 6:21 PM [facility] Blood (Plasma/Serum) 04/25/2024 5:48 PM EST 04/25/2024 5:58 PM EST Franky Shine MD LAB BLOOD ORDERABL ES [facility] [address] [place] [address], [facility] [address] [place] [address] * (ABNORMAL) Complete Blood Count, with Differential (04/25/2024 5:48 PM EST) White Blood Cell Count 5.7 4.0 - 11.0 Thou/uL 04/25/2024 6:01 PM [facility] Platelet Count 147(L) 150 - 450 Thou/uL 04/25/2024 6:01 PM [facility] Hemoglobin 14.6 13.0 - 17.7 g/dL 04/25/2024 6:01 PM [facility] Hematocrit 43.1 39.0 - 54.0 % 04/25/2024 6:01 PM [facility] Red Blood Cell Count 4.63 4.50 - 6.20 Mil/uL 04/25/2024 6:01 PM [facility] MCV 93 80 - 100 fL 04/25/2024 6:01 PM [facility] MCH 31.5(H) 27.0 - 31.0 pg 04/25/2024 6:01 PM [facility] MCHC 33.9 30.0 - 36.0 g/dL 04/25/2024 6:01 PM [facility] RDW 12.1 11.5 - 14.5 % 04/25/2024 6:01 PM [facility] MPV 9.3 7.5 - 12.5 fL 04/25/2024 6:01 PM [facility] Neutrophils Auto 68.5 % 04/25/19 6:01 PM [facility] Immature Granulocytes 0.4 % 04/25/2024 6:01 PM [facility] Lymphocytes Auto 22.9 % 04/25/19 6:01 PM [facility] Monocytes Auto 4.9 % 04/25/2024 6:01 PM [facility] Eosinophils Auto 2.8 % 04/25/19 6:01 PM [facility] Basophils Auto 0.5 % 04/25/2024 6:01 PM [facility] Abs Neutrophils Auto 3.91 2.00 - 7.50 Thou/uL 04/25/2024 6:01 PM [facility] Abs Immature Granulocytes 0.02 0.00 - 0.10 Thou/uL 04/25/2024 6:01 PM [facility] Abs Lymphocytes Auto 1.31(L) 1.50 - 4.50 Thou/uL 04/25/2024 6:01 PM [facility] Abs Monocytes Auto 0.28 0.20 - 1.50 Thou/uL 04/25/2024 6:01 PM [facility] Abs Eosinophils Auto 0.16 0.00 - 0.70 Thou/uL 04/25/2024 6:01 PM [facility] Abs Basophils Auto 0.03 0.00 - 0.20 Thou/uL 04/25/2024 6:01 PM [facility] Blood Blood specimen / Unknown 04/25/2024 5:48 PM EST 04/25/2024 5:58 PM EST Franky Shine MD LAB BLOOD ORDERABL ES [facility] [address] [place] [address], [facility] [address] [place] [address] * (ABNORMAL) Urinalysis with Reflex to Microscopic and Culture (04/25/2024 5:46 PM EST) Color Straw 04/25/2024 6:01 PM [facility] Clarity Slightly cloudy 04/25/2024 6:01 PM [facility] Specific [place] 1.005 1.003 - 1.030 04/25/2024 6:01 PM [facility] pH 6.0 5.0 - 8.0 04/25/2024 6:01 PM [facility] Leukocyte Esterase Negative Negative 04/25/2024 6:01 PM [facility] Nitrite Negative Negative 04/25/2024 6:01 PM [facility] Protein Negative Negative 04/25/2024 6:01 PM [facility] Glucose Negative Negative mg/dL 04/25/2024 6:01 PM [facility] Ketones Negative Negative 04/25/2024 6:01 PM [facility] Blood Small(A) Negative 04/25/2024 6:01 PM [facility] Bilirubin Negative Negative 04/25/2024 6:01 PM [facility] WBC 0 0 - 4 per hpf 04/25/2024 6:01 PM [facility] RBC 0 0 - 4 per hpf 04/25/2024 6:01 PM [facility] Bacteria Present(A) Absent 04/25/2024 6:01 PM [facility] Squamous Epithelial Cells 1 PER HPF 04/25/2024 6:01 PM [facility] X-Specimen 16 Voided urine specimen / Unknown 04/25/2024 5:46 PM EST 04/25/2024 5:50 PM EST Franky Shine MD URINE ORDERABLES [facility] [address] [place] [address], [facility] [address] [place] [address] * CT Cervical spine w/o contrast (04/25/2024 [...] Degenerative change. No fracture. Franky Shine MD [facility] CT ORDERABLES * CT Head w/o contrast [...] brain. Franky Shine MD IMG CT ORDERABLES documented in this encounter Visit Diagnoses Diagnosis Alcohol abuse- Primary Nondependent alcohol abuse, unspecified drinking behavior Fall from chair Accidental fall from chair documented in this encounter Care Teams Telecommunications Equipment Installer Relationship Specialty Start Date End Date Pcp, No PCP - General General Medicine 04/25/24 documented as of this encounter
== END 2024-05-06 10:51 | disposition home or self-care (01) ==
PROVIDERS: PCP Internal Medicine; Visit Provider Internal Medicine
DX: I10 Essential (primary) hypertension (principal)

== ENCOUNTER → 2024-05-06 10:21 | Outpatient (BNVA) | payer MEDICARE, SELFPAY | PROVIDERS: PCP Internal Medicine; Visit Provider Internal Medicine | DX: I10 Essential (primary) hypertension (principal) | CPT/HCPCS: 99212 ==

== ENCOUNTER 2024-05-07 07:06 | Outpatient (REF) | payer MEDICARE, SELFPAY ==
--- OUTSIDE RECORDS SUMMARY | 2024-05-07 07:08 | XMS_ITS | Encounter Summary ---
Author Organization [facility] Address [address] [place] [address] Care Team Providers Care Bootmaker Hand Name Role Phone Pcp, No Primary Care [...] on filedocumented in this encounter Care Teams Bootmaker Hand Relationship Specialty Start Date End Date Pcp, No PCP - General General Medicine 04/25/24 documented as of this encounter
--- OUTSIDE RECORDS SUMMARY | 2024-05-07 07:08 | XMS_ITS | Clinical Summary ---
Author Organization [facility] Address [address] [place] [address] Care Team Providers Care Surgery Manager Name Role Phone Pcp, No Primary Care Provider Unavailabl e Allergies No known active allergies Encounters Date Type Department Care Team Description 04/25/2024 4:51 PM EST - 04/25/2024 10:08 PM EST Emergency [facility] Emergency Department [address] [place] [phone] Franky Shine MD Alcohol abuse (Primary [...] with Differential (04/25/2024 5:48 PM EST) Pathologist [facility] White Blood Cell Count 5.7 4.0 - 11.0 Thou/uL 04/25/2024 6:01 PM [facility] Platelet Count 147(L) 150 - 450 Thou/uL 04/25/2024 6:01 PM [facility] Hemoglobin 14.6 13.0 - 17.7 g/dL 04/25/2024 6:01 PM [facility] Hematocrit 43.1 39.0 - 54.0 % 04/25/2024 6:01 PM [facility] Red Blood Cell Count 4.63 4.50 - 6.20 Mil/uL 04/25/2024 6:01 PM [facility] MCV 93 80 - 100 fL 04/25/2024 6:01 PM [facility] MCH 31.5(H) 27.0 - 31.0 pg 04/25/2024 6:01 PM [facility] MCHC 33.9 30.0 - 36.0 g/dL 04/25/2024 6:01 PM [facility] RDW 12.1 11.5 - 14.5 % 04/25/2024 6:01 PM [facility] MPV 9.3 7.5 - 12.5 fL 04/25/2024 6:01 PM [facility] Neutrophils Auto 68.5 % 04/25/19 6:01 PM [facility] Immature Granulocytes 0.4 % 04/25/2024 6:01 PM [facility] Lymphocytes Auto 22.9 % 04/25/19 6:01 PM [facility] Monocytes Auto 4.9 % 04/25/2024 6:01 PM [facility] Eosinophils Auto 2.8 % 04/25/19 6:01 PM [facility] Basophils Auto 0.5 % 04/25/2024 6:01 PM [facility] Abs Neutrophils Auto 3.91 2.00 - 7.50 Thou/uL 04/25/2024 6:01 PM [facility] Abs Immature Granulocytes 0.02 0.00 - 0.10 Thou/uL 04/25/2024 6:01 PM [facility] Abs Lymphocytes Auto 1.31(L) 1.50 - 4.50 Thou/uL 04/25/2024 6:01 PM [facility] Abs Monocytes Auto 0.28 0.20 - 1.50 Thou/uL 04/25/2024 6:01 PM [facility] Abs Eosinophils Auto 0.16 0.00 - 0.70 Thou/uL 04/25/2024 6:01 PM [facility] Abs Basophils Auto 0.03 0.00 - 0.20 Thou/uL 04/25/2024 6:01 PM [facility] Blood Blood specimen / Unknown 04/25/2024 5:48 PM EST 04/25/2024 5:58 PM EST Franky Shine MD LAB BLOOD ORDERABL ES [facility] [address] [place] [address], [address] [address] * INR (04/25/2024 5:48 PM EST) Pathologist [facility] Anticoagulant NO ANTI COAGULANT MEDS 04/25/2024 4:50 PM [facility] Prothrombin Time (PT) 11.7 10.0 - 13.5 seconds 04/25/2024 6:06 PM [facility] INR 1.0 04/25/2024 6:06 PM [facility] Comment:INR Therapeutic Rang es: Standard dose anticoagulant 2.0 to 3.0, High dose anticoagulant 2.5-3.5. Blood Plasma specimen / Unknown 04/25/2024 5:48 PM EST 04/25/2024 5:58 PM EST Franky Shine MD LAB BLOOD ORDERABL ES Performing Organization Address City/[facility]/ZIP Co de Phone Number [facility] [address] [place] [address], [place] [address] * (ABNORMAL) Ethanol, Blood (04/25/2024 5:48 PM EST) [facility] [address] Ethanol, Quantitative, Blood 196(H) <11 mg/dL 04/25/2024 6:21 PM [facility] Comment:* FOR MEDICAL PURPOS ES ONLY * Blood (Plasma/Serum) 04/25/2024 5:48 PM EST 04/25/2024 5:58 PM EST Franky Shine MD LAB BLOOD ORDERABL ES [facility] [address] [place] [address], [place] [address] * (ABNORMAL) Comprehensive Metabolic Panel (04/25/2024 5:48 PM EST) [facility] [address] Glucose 123(H) 65 - 99 mg/dL 04/25/2024 6:21 PM [facility] Comment:Fasting: <100 mg/dL, Non-Fasting: <200 mg/dL (ADA 2004) Blood Urea Nitrogen (BUN) 16 8 - 21 mg/dL 04/25/2024 6:21 PM [facility] Creatinine 0.8 0.5 - 1.3 mg/dL 04/25/2024 6:21 PM [facility] eGFR 85 >59 04/25/2024 6:21 PM [facility] Comment:CKD-EPI (2020) in mL /min/1.73 sq meters. Sodium 139 136 - 145 mmol/L 04/25/2024 6:21 PM [facility] Potassium 3.2(L) 3.4 - 5.3 mmol/L 04/25/2024 6:21 PM [facility] Chloride 99 98 - 107 mmol/L 04/25/2024 6:21 PM [facility] CO2 29 22 - 33 mmol/L 04/25/2024 6:21 PM [facility] Calcium 8.9 8.7 - 10.5 mg/dL 04/25/2024 6:21 PM [facility] Alkaline Phosphatase 56 45 - 128 U/L 04/25/2024 6:21 PM [facility] Aspartate Aminotrans (AST) 27 10 - 55 U/L 04/25/2024 6:21 PM [facility] Alanine Aminotrans (ALT) 16 10 - 55 U/L 04/25/2024 6:21 PM [facility] Bilirubin, Total 0.4 0.2 - 1.0 mg/dL 04/25/2024 6:21 PM [facility] Protein, Total 6.9 6.3 - 8.3 g/dL 04/25/2024 6:21 PM [facility] Albumin 4.3 3.4 - 4.8 g/dL 04/25/2024 6:21 PM [facility] BUN/Creatinine Ratio 20 10.0 - 25.0 Ratio 04/25/2024 6:21 PM [facility] Globulin 2.6 1.5 - 3.9 g/dL 04/25/2024 6:21 PM [facility] Albumin/Globulin Ratio 1.7 Ratio 04/25/2024 6:21 PM [facility] Anion Gap 11 7 - 17 04/25/2024 6:21 PM [facility] Blood (Plasma/Serum) 04/25/2024 5:48 PM EST 04/25/2024 5:58 PM EST Franky Shine MD LAB BLOOD ORDERABL ES [facility] [address] [place] [address], [facility] [address] [place] [address] * (ABNORMAL) Urinalysis with Reflex to Microscopic and Culture (04/25/2024 5:46 PM EST) Color Straw 04/25/2024 6:01 PM [facility] Clarity Slightly cloudy 04/25/2024 6:01 PM [facility] Specific [place] 1.005 1.003 - 1.030 04/25/2024 6:01 PM [facility] pH 6.0 5.0 - 8.0 04/25/2024 6:01 PM [facility] Leukocyte Esterase Negative Negative 04/25/2024 6:01 PM [facility] Nitrite Negative Negative 04/25/2024 6:01 PM [facility] Protein Negative Negative 04/25/2024 6:01 PM [facility] Glucose Negative Negative mg/dL 04/25/2024 6:01 PM [facility] Ketones Negative Negative 04/25/2024 6:01 PM [facility] Blood Small(A) Negative 04/25/2024 6:01 PM [facility] Bilirubin Negative Negative 04/25/2024 6:01 PM [facility] WBC 0 0 - 4 per hpf 04/25/2024 6:01 PM [facility] RBC 0 0 - 4 per hpf 04/25/2024 6:01 PM [facility] Bacteria Present(A) Absent 04/25/2024 6:01 PM [facility] Squamous Epithelial Cells 1 PER HPF 04/25/2024 6:01 PM [facility] X-Specimen 16 Voided urine specimen / Unknown 04/25/2024 5:46 PM EST 04/25/2024 5:50 PM EST Franky Shine MD URINE ORDERABLES [facility] [address] [place] [address], [facility] [address] [place] [address] * CT Cervical spine w/o contrast (04/25/2024 [...] Degenerative change. No fracture. Franky Shine MD [facility] CT ORDERABLES * CT Head w/o contrast [...] ORDERABLES from Last 3 Months Care Teams Surgery Manager Relationship Specialty Start Date End Date Pcp, No PCP - General General Medicine 04/25/24
--- OUTSIDE RECORDS SUMMARY | 2024-05-07 07:08 | XMS_ITS | Encounter Summary ---
Author Organization [facility] Address [address] [place] [address] Care Team Providers Care Body Hanger Name Role Phone Pcp, No Primary Care Provider Unavailabl e Reason for Visit * Reason Comments Fall etoh Alcohol Intoxication Encounter Details Date Type Department Care Team (Late st Contact Info) Description 04/25/2024 4:51 PM EST - 04/25/2024 10:08 PM EST Emergency [facility] Emergency Department [address] [place] [phone] Franky Shine MD [address] [place] [address] Alcohol abuse (Primary Dx); Fall from chair [...] * Fall Prevention in the Home Adult (Nigerian) * Alcohol Misuse and Nutrition (Nigerian) documented in this encounter ED Notes * Pee Reyes RN - 04/25/2024 10:07 PM EST Ride called for [facility]. Pt able to walk independently and has steady gait. Pee Reyes RN 04/25/242207 * Neli Peterson RN - 04/25/2024 6:38 PM EST Fall bracelet applied, nonskin socks applied, bed alarm on and side rails elevated. Pt req to leave, instructed on necessity of sober ride, unable to provide sober ride at this time. Neli Peterson RN 04/25/24 3254 * Isabella Anne RN - 04/25/2024 6:30 PM EST Pt rolled off the stretcher and landed on his bilateral knees. Pt did not hit his head. No loc. made aware Isabella Anne RN 04/25/24 447 * Franky Shine MD - 04/25/2024 6:00 [...] LAB BLOOD ORDERABL ES [facility] [address] [place] [address], [facility] [address] [place] [address] * INR (04/25/2024 5:48 PM EST) Anticoagulant NO ANTI COAGULANT MEDS 04/25/2024 4:50 PM EST [facility] Prothrombin Time (PT) 11.7 10.0 - 13.5 seconds 04/25/2024 6:06 PM EST [facility] INR 1.0 04/25/2024 6:06 PM EST [facility] Comment:INR Therapeutic Rang es: Standard dose anticoagulant 2.0 to 3.0, High dose anticoagulant 2.5-3.5. Blood Plasma specimen / Unknown 04/25/2024 5:48 PM EST 04/25/2024 5:58 PM EST Franky Shine MD LAB BLOOD ORDERABL ES [facility] [address] [place] [address], [facility] [address] [place] [address] * (ABNORMAL) Comprehensive Metabolic Panel (04/25/2024 5:48 PM EST) Glucose 123(H) 65 - 99 mg/dL 04/25/2024 6:21 PM [facility] Comment:Fasting: <100 mg/dL, Non-Fasting: <200 mg/dL (ADA 2004) Blood Urea Nitrogen (BUN) 16 8 - 21 mg/dL 04/25/2024 6:21 PM [facility] Creatinine 0.8 0.5 - 1.3 mg/dL 04/25/2024 6:21 PM [facility] eGFR 85 >59 04/25/2024 6:21 PM [facility] Comment:CKD-EPI (2020) in mL /min/1.73 sq meters. Sodium 139 136 - 145 mmol/L 04/25/2024 6:21 PM [facility] Potassium 3.2(L) 3.4 - 5.3 mmol/L 04/25/2024 6:21 PM [facility] Chloride 99 98 - 107 mmol/L 04/25/2024 6:21 PM [facility] CO2 29 22 - 33 mmol/L 04/25/2024 6:21 PM [facility] Calcium 8.9 8.7 - 10.5 mg/dL 04/25/2024 6:21 PM [facility] Alkaline Phosphatase 56 45 - 128 U/L 04/25/2024 6:21 PM [facility] Aspartate Aminotrans (AST) 27 10 - 55 U/L 04/25/2024 6:21 PM [facility] Alanine Aminotrans (ALT) 16 10 - 55 U/L 04/25/2024 6:21 PM [facility] Bilirubin, Total 0.4 0.2 - 1.0 mg/dL 04/25/2024 6:21 PM [facility] Protein, Total 6.9 6.3 - 8.3 g/dL 04/25/2024 6:21 PM [facility] Albumin 4.3 3.4 - 4.8 g/dL 04/25/2024 6:21 PM [facility] BUN/Creatinine Ratio 20 10.0 - 25.0 Ratio 04/25/2024 6:21 PM [facility] Globulin 2.6 1.5 - 3.9 g/dL 04/25/2024 6:21 PM [facility] Albumin/Globulin Ratio 1.7 Ratio 04/25/2024 6:21 PM [facility] Anion Gap 11 7 - 17 04/25/2024 6:21 PM [facility] Blood (Plasma/Serum) 04/25/2024 5:48 PM EST 04/25/2024 5:58 PM EST Franky Shine MD LAB BLOOD ORDERABL ES [facility] [address] [place] [address], [facility] [address] [place] [address] * (ABNORMAL) Complete Blood Count, with Differential (04/25/2024 5:48 PM EST) White Blood Cell Count 5.7 4.0 - 11.0 Thou/uL 04/25/2024 6:01 PM [facility] Platelet Count 147(L) 150 - 450 Thou/uL 04/25/2024 6:01 PM [facility] Hemoglobin 14.6 13.0 - 17.7 g/dL 04/25/2024 6:01 PM [facility] Hematocrit 43.1 39.0 - 54.0 % 04/25/2024 6:01 PM [facility] Red Blood Cell Count 4.63 4.50 - 6.20 Mil/uL 04/25/2024 6:01 PM [facility] MCV 93 80 - 100 fL 04/25/2024 6:01 PM [facility] MCH 31.5(H) 27.0 - 31.0 pg 04/25/2024 6:01 PM [facility] MCHC 33.9 30.0 - 36.0 g/dL 04/25/2024 6:01 PM [facility] RDW 12.1 11.5 - 14.5 % 04/25/2024 6:01 PM [facility] MPV 9.3 7.5 - 12.5 fL 04/25/2024 6:01 PM [facility] Neutrophils Auto 68.5 % 04/25/19 6:01 PM [facility] Immature Granulocytes 0.4 % 04/25/2024 6:01 PM [facility] Lymphocytes Auto 22.9 % 04/25/19 6:01 PM [facility] Monocytes Auto 4.9 % 04/25/2024 6:01 PM [facility] Eosinophils Auto 2.8 % 04/25/19 6:01 PM [facility] Basophils Auto 0.5 % 04/25/2024 6:01 PM [facility] Abs Neutrophils Auto 3.91 2.00 - 7.50 Thou/uL 04/25/2024 6:01 PM [facility] Abs Immature Granulocytes 0.02 0.00 - 0.10 Thou/uL 04/25/2024 6:01 PM [facility] Abs Lymphocytes Auto 1.31(L) 1.50 - 4.50 Thou/uL 04/25/2024 6:01 PM [facility] Abs Monocytes Auto 0.28 0.20 - 1.50 Thou/uL 04/25/2024 6:01 PM [facility] Abs Eosinophils Auto 0.16 0.00 - 0.70 Thou/uL 04/25/2024 6:01 PM [facility] Abs Basophils Auto 0.03 0.00 - 0.20 Thou/uL 04/25/2024 6:01 PM [facility] Blood Blood specimen / Unknown 04/25/2024 5:48 PM EST 04/25/2024 5:58 PM EST Franky Shine MD LAB BLOOD ORDERABL ES [facility] [address] [place] [address], [facility] [address] [place] [address] * (ABNORMAL) Urinalysis with Reflex to Microscopic and Culture (04/25/2024 5:46 PM EST) Color Straw 04/25/2024 6:01 PM [facility] Clarity Slightly cloudy 04/25/2024 6:01 PM [facility] Specific [place] 1.005 1.003 - 1.030 04/25/2024 6:01 PM [facility] pH 6.0 5.0 - 8.0 04/25/2024 6:01 PM [facility] Leukocyte Esterase Negative Negative 04/25/2024 6:01 PM [facility] Nitrite Negative Negative 04/25/2024 6:01 PM [facility] Protein Negative Negative 04/25/2024 6:01 PM [facility] Glucose Negative Negative mg/dL 04/25/2024 6:01 PM [facility] Ketones Negative Negative 04/25/2024 6:01 PM [facility] Blood Small(A) Negative 04/25/2024 6:01 PM [facility] Bilirubin Negative Negative 04/25/2024 6:01 PM [facility] WBC 0 0 - 4 per hpf 04/25/2024 6:01 PM [facility] RBC 0 0 - 4 per hpf 04/25/2024 6:01 PM [facility] Bacteria Present(A) Absent 04/25/2024 6:01 PM [facility] Squamous Epithelial Cells 1 PER HPF 04/25/2024 6:01 PM [facility] X-Specimen 16 Voided urine specimen / Unknown 04/25/2024 5:46 PM EST 04/25/2024 5:50 PM EST Franky Shine MD URINE ORDERABLES [facility] [address] [place] [address], [facility] [address] [place] [address] * CT Cervical spine w/o contrast (04/25/2024 [...] Degenerative change. No fracture. Franky Shine MD [facility] CT ORDERABLES * CT Head w/o contrast [...] chair documented in this encounter Care Teams Body Hanger Relationship Specialty Start Date End Date Pcp, No PCP - General General Medicine 04/25/24 documented as of this encounter
[2024-05-07 07:51] LABS: MANUAL DIFF FLAG NO
[2024-05-07 08:30] LABS: Basophils Percent Auto 0.5 % (0-2); Eosinophils Absolute Auto 0.4 X10*3/uL (0.0-0.4); Eosinophils Percent Auto 4.6 % (0-4); Hematocrit 46.2 % (42.0-52.0); Hemoglobin 15.5 g/dl (14.0-18.0); Imm Gran Abs Auto 0.02 X10*3/uL (0.00-0.03); Imm Gran Pct Auto 0.2 % (0.0-0.4); Lymphocytes Absolute Auto 1.6 X10*3/uL (1.2-4.9); Lymphocytes Percent Auto 17.9 % (20-40); Mean Corpuscular HGB Conc 33.5 g/dl (31.0-36.0); Mean Corpuscular Hemoglobin 31.6 pg (27.0-33.0); Mean Corpuscular Volume 94.1 fL (80.0-98.0); Mean Platelet Volume 9.8 fL (9.4-12.4); Monocytes Absolute Auto 0.7 X10*3/uL (0.1-1.2); Monocytes Percent Auto 7.7 % (2-11); Neutrophils Absolute Auto 6.1 x10*3/uL (2.0-8.3); Neutrophils Percent Auto 69.1 % (45-73); Platelet Count 184 X10*3/uL (160-400); Red Blood Count 4.91 X10*6/uL (4.60-5.80); Red Cell Distribution Width 12.7 % (11.0-16.0); White Blood Count 8.8 X10*3/uL (4.8-10.8)
[2024-05-07 09:11] LABS: Alanine Aminotransferase 22 U/L (0-40); Albumin Level 4.4 g/dL (3.5-5.0); Alkaline Phosphatase 60 U/L (39-117); Anion Gap 11 (12-20); Aspartate Amino Transferase 29 U/L (5-37); Bilirubin Total 0.8 mg/dL (0.0-1.0); Blood Urea Nitrogen 22 mg/dL (9-16); Calcium 9.3 mg/dL (8.4-10.2); Carbon Dioxide 31 mmol/L (22-29); Chloride 105 mmol/L (96-108); Cholesterol 146 mg/dL (<200); Estimated Glomerular Filt Rate > 60; Glucose Fasting 97 mg/dL (60-99); HDL Cholesterol 58 mg/dL (>40); LDL Cholesterol Calculated 77 mg/dL (<100); Potassium 3.9 mmol/L (3.3-5.1); Sodium 143 mmol/L (135-145); Total Protein 7.6 g/dL (6.5-8.0); Triglycerides 56 mg/dL (<150)
[2024-05-07 09:28] LABS: Thyroid Stimulating Hormone 0.57 uIU/mL (0.32-4.0)
== END 2024-05-07 07:07 | disposition home or self-care (01) ==
LOC: HO.LAB 07:06
PROVIDERS: PCP Internal Medicine; Visit Provider Internal Medicine
DX: Z13.0 Encounter for screening for diseases of the blood and blood-forming organs and certain disorders involving the immune mechanism (principal); Z13.29 Encounter for screening for other suspected endocrine disorder; Z13.220 Encounter for screening for lipoid disorders; Z13.6 Encounter for screening for cardiovascular disorders
CPT/HCPCS: 36415; 80053; 80061; 84443; 85025

== ENCOUNTER 2024-08-19 10:52 | Outpatient (REF) | payer SELFPAY ==
--- OUTSIDE RECORDS SUMMARY | 2024-08-19 11:17 | XMS_ITS | Patient Health Record ---
Author Organization [facility] Address [address] [place] [address] Care Team Providers Care Concrete Vault Maker Name Role Phone Jean Salcido MD Primary Care Provider Maria Del Rosario Thurman Unavailable [phone] OliverSawyer Unavailable [phone] Allergies No Known Allergies Reason For Referral No Information Medications Medication SIG (Take, Route, Frequency, Duration) Notes Start Date End Date Status Triamcinolone Acetonide 0.5 % Externally Not-Taking Cyclobenzaprine HCl 10 MG Orally Not-Taking Amoxicillin 250 MG Orally N ot-Taking Aspirin 81mg Active hydroCHLOROthiazide 25 MG as directed Orally Active Lovastatin 40 MG as directed Orally Active Immunizations Vaccine Route Administration Date Status Comme nts COVID-19 Pfizer BioNTech Vaccine Unknown 04/03/2020 Administered COVID-19 Pfizer BioNTech Vaccine Unknown 12/26/2020 Administered 1st 04/03/20 2nd 04/24/20 Social History Tobacco Use: Social History Observation Description Date Details (start date - stop date) Never Smoker NA - NA Tobacco use other than smoking: Question Answer Notes Are you an other tobacco user? Yes c igars Tobacco Control (Standard) Question Answer Notes Tobacco use: Nonsmoker Additional Findings: Tobacco non-user Current no nsmoker AUDIT-C (Standard) Question Answer Notes Did you have a drink containing alcohol in the p ast year? No Points 0 Interpretation Negative Problems Problem Type SNOMED Code ICD Code Onset Dates Problem Status W/U Status Risk Notes Problem Bilateral atherosclerosis of arteries of lower limbs (disorder) (34552646082893698 ) Unspecified atherosclerosis of [place] arteries of extremities, bilateral legs (I70.203) Active confirmed Problem Non-pressure chronic ulcer of other part of right foot limited to breakdown of skin (L97.511) Active confirmed Problem Acquired hammer toe of right foot (6391344604963023) Other hammer toe(s) (acquired), right foot (M20.41) Active confirmed Problem Acquired hallux rigidus (9545858) Hallux rigidus, right foot (M20.21) Active confirmed Problem Bilateral atherosclerosis of arteries of lower limbs (disorder) (83281609142764125 ) Atherosclerosis of [place] artery of both lower extremities, with unspecified presence of clinical manifestation (I70.203) Active confirmed Q7(A), Q8(2B), Q9(1B,2 C) Vital Signs Blood pressure diastolic 70 mm Hg 07/18/2024 Height 5 ft 5.5 in in 07/18/2024 Blood pressure systolic 125 mm Hg 07/18/2024 Weight 156 lbs 07/18/2024 BMI 25.56 kg/m2 07/18/2024 Procedures Procedure Date Ordered Date Performed Result Body Sit e 89201-NIAW SKIN LESIONS, 2 TO 4 09/10/2023 N/A 52223-XESJQDF NAIL, 6 OR MORE 03/17/2024 N/A 83917-MYWY SKIN LESIONS, OVER 4 03/17/2024 N/A 35524-OLUJDHS NAIL, 6 OR MORE 07/18/2024 N/A 14021-BFYC SKIN LESIONS, OVER 4 07/18/2024 N/A Encounters Encounter [facility] Date [facility] [phone] 09/10/2023 Sawyer Oliver Tinea unguium B35.1 ; Pain in right toe(s) M79.674 ; Pain in left toe(s) M79.675 ; Hallux rigidus, right foot M20.21 ; Ingrowing nail L60.0 ; Unspecified atherosclerosis of [place] arteries of extremities, bilateral legs I70.203 ; Pain in left foot M79.672 and Pain in right foot M79.[address] [address] 12/10/2023 Sawyer Oliver Tinea unguium B35.1 ; Pain in right toe(s) M79.674 ; Pain in left toe(s) M79.675 ; Hallux rigidus, right foot M20.21 ; Ingrowing nail L60.0 ; Unspecified atherosclerosis of [place] arteries of extremities, bilateral legs I70.203 ; Pain in left foot M79.672 and Pain in right foot M79.[address] [address] 03/17/2024 Maria Del Rosario Darling Atherosclerosis of [place] artery of both lower extremities, with unspecified presence of clinical manifestation I70.203 ; Tinea unguium B35.1 ; Pain in right toe(s) M79.674 and Pain in left toe(s) M79.[address] [address] 07/18/2024 Maria Del Rosario Darling Atherosclerosis of [place] artery of both lower extremities, with unspecified presence of clinical manifestation I70.203 ; Tinea unguium B35.1 ; Pain in right toe(s) M79.674 and Pain in left toe(s) M79.[address] [address] 12/15/2023 Sawyer Oliver Assessments Encounter Date Diagnosis (ICD Code) Assessment Notes Treatment Notes Treatment Clinical Notes Section Notes 09/10/2023 Tinea unguium (ICD-10 - B35.1) 09/10/2023 Pain in right toe(s) (ICD-10 - M79.674) 12/10/2023 Tinea unguium (ICD-10 - B35.1) 03/17/2024 Atherosclerosis of [place] artery of both lower extremities, with unspecified presence of clinical manifestation (ICD-10 - I70.203) Q7(A), Q8(2B), Q9(1B,2C) 07/18/2024 Atherosclerosis of [place] artery of both lower extremities, with unspecified presence of clinical manifestation (ICD-10 - I70.203) Q7(A), Q8(2B), Q9(1B,2C) 07/18/2024 Tinea unguium (ICD-10 - B35.1) 09/10/2023 Pain in left toe(s) (ICD-10 - M79.675) 12/10/2023 Pain in right toe(s) (ICD-10 - M79.674) 03/17/2024 Tinea unguium (ICD-10 - B35.1) 03/17/2024 Pain in right toe(s) (ICD-10 - M79.674) 12/10/2023 Pain in left toe(s) (ICD-10 - M79.675) 09/10/2023 Hallux rigidus, right foot (ICD-10 - M20.21) 07/18/2024 Pain in right toe(s) (ICD-10 - M79.674) 07/18/2024 Pain in left toe(s) (ICD-10 - M79.675) 12/10/2023 Hallux rigidus, right foot (ICD-10 - M20.21) 03/17/2024 Pain in left toe(s) (ICD-10 - M79.675) 09/10/2023 Ingrowing nail (ICD-10 - L60.0) 09/10/2023 Unspecified atherosclerosis of [place] arteries of extremities, bilateral legs (ICD-10 - I70.203) 12/10/2023 Ingrowing nail (ICD-10 - L60.0) 09/10/2023 Pain in left foot (ICD-10 - M79.672) 12/10/2023 Unspecified atherosclerosis of [place] arteries of extremities, bilateral legs (ICD-10 - I70.203) 12/10/2023 Pain in left foot (ICD-10 - M79.672) 09/10/2023 Pain in right foot (ICD-10 - M79.671) 12/10/2023 Pain in right foot (ICD-10 - M79.671) Plan Of Treatment Pending Test Test Name Order Date X ray : Foot, left 3V 07/14/2013 49360-TNQZMRM NAIL, 6 OR MORE 04/14/2016 62955-HLWSIJM NAIL, 6 OR MORE 10/15/2016 03234-YUAKJEZ NAIL, 6 OR MORE 01/14/2017 30644-FOWLTDG NAIL, 6 OR MORE 10/01/2015 76370-BFHZYWF NAIL, 6 OR MORE 01/02/2016 14066-UCBVPLV NAIL, 6 OR MORE 04/15/2017 10800-DEGPXRR NAIL, 6 OR MORE 01/13/2018 33687-ANXKPYI NAIL, 6 OR MORE 07/15/2017 20439-MBFCMMV NAIL, 6 OR MORE 10/15/2017 04121-JBVFUME NAIL, 6 OR MORE 03/17/2024 88770-PFSPTYF NAIL, 6 OR MORE 07/18/2024 90375-Twgqrewh Plate 01/02/2016 45519-Yodrcocw Plate 09/01/2013 72456-Hivjiezy Plate 12/07/2013 45686-Fnjjowkv Plate 03/08/2014 11488-Noegycbt Plate 06/12/2014 94579-Pquaclro Plate 09/11/2014 49517-Gjqhciig Plate 12/21/2014 02280-Fabansmh Plate 03/21/2015 67477-Cjjznhwc Plate 07/02/2015 57303-Lgcphngo Plate 12/23/2010 83400-Wuewlnzm Plate 04/16/2011 67053-Ctlbhrft Plate 07/16/2011 20900-Nhhubxbk Plate 10/20/2011 67592-Fojdctpu Plate 01/26/2012 51623-Icubbfzu Plate 04/26/2012 55181-Mzfjsrgu Plate 07/19/2012 96028-Cqhvvjhb Plate 10/25/2012 91715-Dsdydkrs Plate 01/31/2013 06301-Sfaldsvd Plate 05/23/2013 55931-Hpsstxxx Plate Each Additional 08/2014 20731-NNPY SKIN LESIONS, OVER 4 07/16/19 18 05546-NGDG SKIN LESIONS, OVER 4 04/15/19 18 33024-SVXM SKIN LESIONS, OVER 4 04/12/19 19 20181-PCNH SKIN LESIONS, OVER 4 07/13/19 19 07932-BVPV SKIN LESIONS, OVER 4 10/12/19 19 83965-LCUL SKIN LESIONS, OVER 4 01/11/20 19 50289-ANWX SKIN LESIONS, OVER 4 04/13/19 20 95920-SQTL SKIN LESIONS, OVER 4 07/18/19 20 52599-KNYZ SKIN LESIONS, OVER 4 10/17/19 20 00496-CEUK SKIN LESIONS, OVER 4 01/16/20 20 94736-CGYP SKIN LESIONS, OVER 4 04/25/19 21 04816-RFFL SKIN LESIONS, OVER 4 07/26/19 21 33160-JYSS SKIN LESIONS, OVER 4 10/25/19 21 57973-DRQU SKIN LESIONS, OVER 4 01/10/20 21 37872-RKUX SKIN LESIONS, OVER 4 05/02/19 22 85860-QFEA SKIN LESIONS, OVER 4 07/19/19 25 24395-USJU SKIN LESIONS, OVER 4 03/17/19 25 81851-GYQA SKIN LESIONS, OVER 4 01/14/20 18 59748-IYUH SKIN LESIONS, OVER 4 10/16/19 18 11033-XOTS SKIN LESIONS, 2 TO 4 09/10/19 24 Next Appt Details Provider Name:Maria Del Rosario Fontenot robert, 10/27/2024 09:00:00 AM, [address] [place], [address], Insurance Providers Payer Name Payer Address Payer Phone Subscriber Number Group Number Insured Name Patient Relationship to Insured Coverage Start Date Coverage End Date Medicare National [employer] [address] [place] [address] [id number] Konstantin Razo Self - patient is the insured 2 [employer] Blue Shield [address] [place] [address] [id number] Konstantin Razo Self - patient is the insured Medical (General) History Medical History History ICD Code hypertension Basal cell carcinoma Squamous Cell Carcinoma Hyperlipidemia Surgical History Surgery Date(Month/Year) hernia repair 2010 ganglion cyst basal cell carcinoma 2005 Squamous cell 2006 Hospitalization History Reason Date(Month/Year) C- cut finger- [place] 01/18
== END 2024-08-19 10:53 | disposition home or self-care (01) ==
LOC: HO.HAP 10:52
PROVIDERS: Visit Provider Internal Medicine
DX: Z46.1 Encounter for fitting and adjustment of hearing aid (principal); H90.3 Sensorineural hearing loss, bilateral
CPT/HCPCS: 92593

== ENCOUNTER 2024-10-24 11:19 | Outpatient (AMB) | payer MEDICARE, SELFPAY ==
--- NOTE | 2024-10-24 11:47 | MHC.PC.OV ---
Vital Signs 10/24/24 11:48 Height 5 ft 6 in Weight 152 lb 8 oz BMI 24.6 BP 110/74 Blood Pressure Location Lt brachial Position Sitting Pulse 60 Pulse Source Pulse Oximeter Temp 97.3 F Temp Source Temporal Artery Scan Pulse Oximetry (%) 97 Oxygen Delivery Method Room Air Intake Visit Reasons: follow up transfer from [facility] - See comments Intake Note: Patient is here today for AURY from Dr Salcido Station Engineer Chief Required: No Food Cashier: Not Required per policy Accompanied by: Self / Same As Patient Allergies methylprednisolone (METHYLPREDNISOLONE) Allergy (Unknown, Verified 10/24/24 11:48) HIVES Medication List - Last Reconciled 10/24/24 by Araceli Taylor MD aspirin 81 mg PO DAILY hydrochlorothiazide 25 mg PO DAILY lovastatin 40 mg PO DAILY Tobacco use date assessed: 10/24/24 Fall risk assessment: No Falls in past year Last assessed Fall Risk: 10/24/24 Dental Screening Dental Screen Date: 05/06/24 PFSH Medical History (Updated 10/24/24 @ 12:20 by Araceli Taylor MD) Hypertension [place] (hard of hearing) Lesion of right earlobe Hyperlipidemia Surgical History (Updated 10/24/24 @ 12:11 by Araceli Taylor MD) H/O basal cell carcinoma excision H/O excision of ganglion cyst History of inguinal hernia repair Family History Father CHF (congestive heart failure) Mother Lung cancer Sister No problems noted. Daughter No problems noted. Daughter No problems noted. Daughter No problems noted. Social History (Updated 10/24/24 @ 12:12 by Araceli Taylor MD) Housing: House Are you a primary acute care registered nurse to a significant other at home: No Do you presently have visiting nurse or other home services: No Alcohol intake: current Alcohol intake frequency: 0-2 drinks per day Comment: 2x a week glass Patient Tobacco Use Status: Current everyday Tobacco user Tobacco use type: Cigar Cigarettes Per Day: 1 Years Smoked: cigars only e-Cigarette/Vaping Use: Never Used Second Hand Smoke Exposure: Yes service: No Current occupational status: retired Cognitive needs: No Hearing needs: Yes (hearing aide) Vision needs: Yes (glasses) Questionnaire Thrive Questionnaire Date Thrive assessed: 05/06/24 MOUSTAPHA-7 AMB Questionnaire MOUSTAPHA-7 Date MOUSTAPHA - 7 assessed: 05/06/24 Source: Developed by DrsRia Jon, Deloris Johnson, Brock Hdz and colleagues, with an educational annamaria from [employer]. Physical exam (Primary Care) Vital Signs: Last Vital Signs Temp 97.3 F 10/24/24 11:48 Pulse 60 10/24/24 11:48 BP 110/74 10/24/24 11:48 Pulse Ox 97 10/24/24 11:48 Oxygen Delivery Method Room Air 10/24/24 11:48 BMI result Body Mass Index 24.6 Tobacco/Smoking Status: Tobacco use Status Tobacco use date assessed 10/24/24 10/24/24 11:53 Patient Tobacco Use Status Current everyday Tobacco 10/24/24 12:12 Tobacco use type Cigar 10/24/24 12:12 e-Cigarette/Vaping Use Never Used 10/24/24 12:12 Thrive Assessment: Date of Thrive Assessment Date Thrive assessed 05/06/24 10/24/24 11:53 Const General: alert; No acute distress Eyes Conjunctivae: conjunctivae normal Resp Auscultation: clear to auscultation bilaterally Cardio Rate: regular rate Rhythm: regular rhythm GI Inspection: Yes normal to inspection Extrem General: Yes normal to inspection and No edema Office Procedures Cerumen Removal From which ear canal was the cerumen removed: left Removal: otoscope w/curette and cerumen loop/spoon Notes: patient tolerated procedure well, no complications and ear canal clear 21071-Vqo Wax Removal by Spoon/Curette Coding Level of Care Code Est Pt Level 4 (02430) Diagnoses Hypertension I10 Hyperlipidemia E78.5 H/O basal cell carcinoma excision Z98.890; Z85.828 Cigar smoker F17.290 Impacted cerumen of left ear H61.22 [place] (hard of hearing) H91.90 CPT Codes Office Procedure - CPT: 73227-Kxp Wax Removal by Spoon/Curette ([id number]) Assessment & Plan Assessment & Plan (1) Hypertension: Code(s): I10 - Essential (primary) hypertension Category: Medical Plan: Continue with blood pressure medication. Decrease salt intake and exercise patient is on hydrochlorothiazide 25 mg once a day (2) Hyperlipidemia: Code(s): E78.5 - Hyperlipidemia, unspecified Category: Medical Plan: Avoid fried foods, chicken skin, eggs, butter margarine, pastries and meat. Be it pork or beef they have a lot of cholesterol on lovastatin 40 mg once a day (3) H/O basal cell carcinoma excision: Comment: 06/2004 from nose and in 06/2005 from forehead NEDermatology Code(s): Z98.890 - Other specified postprocedural states; Z85.828 - Personal history of other malignant neoplasm of skin Category: Surgical Plan: seen NEdermatology regularly (4) Cigar smoker: Code(s): F17.290 - Nicotine dependence, other tobacco product, uncomplicated Category: Social Hx Plan: did advised the need to stop! (5) Impacted cerumen of left ear: Code(s): H61.22 - Impacted cerumen, left ear Category: Medical Plan: scoop used TM intact (6) [place] (hard of hearing): Code(s): H91.90 - Unspecified hearing loss, unspecified ear Category: Medical Plan: has a hearing aid Plan History of Present Illness The patient is an 89-year-old male presenting for a wellness visit and management of chronic conditions. The patient has a history of hypercholesterolemia, for which he is currently on lovastatin 40 mg once daily. His cholesterol levels were last checked in April 2024, showing an LDL of 77 mg/dL, indicating good control. He also has a history of hypertension, managed with hydrochlorothiazide 25 mg once daily. His blood pressure was measured at 110/74 mmHg during this visit, which is well-controlled. The patient reports a history of skin cancer and continues to follow up with a shoelace tipping machine operator for monitoring. He denies any history of heart disease, strokes, ulcers, thyroid problems, or seizures. Socially, the patient drinks alcohol occasionally, primarily wine with meals, and smokes cigars daily, having quit cigarettes 50 years ago. 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 The patient has a history of hearing loss and reports using hearing aids. He also mentions having a few hernias. Health Maintenance - Vaccinations: Discussed tetanus and pneumonia vaccinations, but the patient declined at this time. - Lifestyle: Encouraged adequate hydration, healthy eating, and regular physical activity. Social History - Alcohol use: Drinks wine occasionally with meals, more frequently in the summer. - Tobacco use: Smokes cigars daily, quit cigarettes 50 years ago. 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 Review of Systems - Cardiovascular: Denies chest pain, heart disease, or history of strokes. - Respiratory: Denies lung problems or asthma. - Gastrointestinal: Denies ulcers or constipation. - Genitourinary: Reports nocturia, typically twice per night. - Neurological: Denies seizures. - Dermatological: Reports history of skin cancer. - Musculoskeletal: Reports hernias. - Sensory: Reports hearing loss, uses hearing aids. Physical Exam General: Cooperative, healthy appearing, comfortable, no acute distress and well developed Orientation: Patient oriented x3 Limitations: No limitations Head: Normal to inspection Ears: Hearing loss noted, ear wax present but improved Nose: Normal external nose present Face and sinus: Normal facial exam Eyes: Appearance normal, both eyes and all related structures Neck: Normal visual inspection and Yes full ROM Respiratory: Normal respiratory effort and able to speak in complete sentences. Clear to auscultation bilaterally Cardiovascular: Regular rate and rhythm. Normal S1 and S2 GI: Normal to inspection. Soft to palpation and nontender Skin: History of skin cancer, under dermatological care Neuro: Patient oriented x3 Extremities: Normal to inspection Results - Labs: April 2024 blood work showed normal blood count, electrolytes, renal function, blood sugar, liver function, and LDL cholesterol of 77 mg/dL. Plan The patient will continue on his current medication regimen, including hydrochlorothiazide for hypertension and lovastatin for hypercholesterolemia, as both conditions are well-controlled. He was advised to maintain his current lifestyle habits, including regular physical activity and healthy eating, to support overall health and chronic disease management. Vaccinations for tetanus and pneumonia were discussed, but the patient opted to defer them at this time. The patient was encouraged to monitor his nocturia and report any changes, as well as to continue regular follow-ups with his shoelace tipping machine operator for skin cancer monitoring. Patient was informed and verbally consented to the use of an ambient scribe for clinic note documentation during this visit. Discussion Notes During the visit, I discussed the patient's current medication regimen and confirmed that his hypertension and hypercholesterolemia are well-managed with hydrochlorothiazide and lovastatin, respectively. We talked about the importance of maintaining a healthy lifestyle, including regular exercise and a balanced diet, to support his overall health. I also reviewed the benefits of vaccinations for tetanus and pneumonia, although the patient chose to defer them at this time. Additionally, I advised him to monitor his nocturia and to continue dermatological follow-ups for his history of skin cancer. Patient Instructions - Continue taking hydrochlorothiazide and lovastatin as prescribed. - Maintain regular physical activity and a healthy diet. - Monitor nocturia and report any changes. - Follow up with your shoelace tipping machine operator for skin cancer monitoring. Orders: Orders Complete Blood Count Auto Diff Today I10 - Essential (primary) hypertension Comprehensive Met. Panel Today I10 - Essential (primary) hypertension Thyroid Stimulating Hormone Today I10 - Essential (primary) hypertension Free T4 (Free Thyroxine) Today I10 - Essential (primary) hypertension Vitamin B12 and Folate Today I10 - Essential (primary) hypertension Lipid Panel Today E78.00 - Pure hypercholesterolemia, unspecified, I10 - Essential (primary) hypertension
[2024-10-24 11:48] VITALS: BP 110/74; PULSE 60; TEMP 36.3; O2SAT 97; BMI 24.6
--- OUTSIDE RECORDS SUMMARY | 2024-10-24 12:46 | XMS_ITS | Clinical Summary ---
Author Organization [facility] Address [address] [place] [address] Care Team Providers Care Cigarette Making Examiner Name Role Phone Pcp, No Primary Care Provider Unavailabl e Allergies No known active allergies Social History Tobacco Use Types Packs/Day Years Used Date Smoking Tobacco: Never Assessed Sex and Gender Information Value Date Recorded Sex Assigned at Male 04/25/2024 6:48 PM EST Legal Sex Male 6:52 PM EST Gender Identity Male 04/25/2024 6:48 PM EST Sexual Orientation Choose not to disclose 2024 6:48 PM EST Last Filed Vital Signs Vital Sign Reading Time Taken Comments Blood Pressure 161/77 04/25/2024 9:06 PM EST Pulse 69 04/25/2024 9:06 PM EST Temperature 36.4 C (97.6 F) 04/25/2024 6:31 PM EST Respiratory Rate 18 04/25/2024 9:06 PM EST [...] Patients (1 - 1-dose 75+ series) 09/05/2010 COVID-19 Vaccine (3 - 2023-2 5 season) 2023 12/26/2020, 04/03/2020 Influenza Vaccine 09/30/2024 Hepatitis B Vaccines Aged Out No long er eligible based on patient's age to complete this topic Insurance MEDICARE PART A & B [facility] Care Teams Cigarette Making Examiner Relationship Specialty Start Date End Date Pcp, No PCP - General General Medicine 04/25/24
--- OUTSIDE RECORDS SUMMARY | 2024-10-24 12:46 | XMS_ITS | Patient Health Record ---
Author Organization [facility] Address [address] [place] [address] Care Team Providers Care Group Rooms Coordinator Name Role Phone Jean Salcido MD Primary Care Provider Maria Del Rosario Thurman Unavailable [phone] OliverSawyer Unavailable [phone] Allergies No Known Allergies Reason For Referral [...] atherosclerosis of arteries of lower limbs (disorder) (75934487093333228 ) Unspecified atherosclerosis of [place] arteries of extremities, bilateral legs (I70.203) Active confirmed Problem Non-pressure chronic ulcer of other part of right foot limited to breakdown of skin (L97.511) Active confirmed Problem Acquired hammer toe of right foot (4001280415646237) Other hammer toe(s) (acquired), right foot (M20.41) Active confirmed Problem Acquired hallux rigidus (4906738) Hallux rigidus, right foot (M20.21) Active confirmed Problem Bilateral atherosclerosis of arteries of lower limbs (disorder) (50303415921843329 ) Atherosclerosis of [place] artery of both lower extremities, with unspecified presence of clinical manifestation (I70.203) Active confirmed Q7(A), Q8(2B), Q9(1B,2 C) Vital Signs Blood pressure diastolic 70 mm Hg 07/18/2024 Height 5 ft 5.5 in in 07/18/2024 Blood pressure systolic 125 mm Hg 07/18/2024 Weight 156 lbs 07/18/2024 BMI 25.56 kg/m2 07/18/2024 Procedures Procedure Date Ordered Date Performed Result Body Sit e 64488-SPYZZNA NAIL, 6 OR MORE 03/17/2024 N/A 52129-GLXH SKIN LESIONS, OVER 4 03/17/2024 N/A 35686-DLFXXKL NAIL, 6 OR MORE 07/18/2024 N/A 88067-MOXU SKIN LESIONS, OVER 4 07/18/2024 N/A Encounters Encounter Location Date Provider Diagnosis [facility] [address] [address] 12/10/2023 Sawyer Oliver Tinea unguium B35.1 ; Pain in right toe(s) M79.674 ; Pain in left toe(s) M79.675 ; Hallux rigidus, right foot M20.21 ; Ingrowing nail L60.0 ; Unspecified atherosclerosis of [place] arteries of extremities, bilateral legs I70.203 ; Pain in left foot M79.672 and Pain in right foot M79.671 [facility] [address] [address] 03/17/2024 Maria Del Rosario Darling Atherosclerosis of [place] artery of both lower extremities, with unspecified presence of clinical manifestation I70.203 ; Tinea unguium B35.1 ; Pain in right toe(s) M79.674 and Pain in left toe(s) M79.[address] [address] 07/18/2024 Maria Del Rosario Darling Atherosclerosis of [place] artery of both lower extremities, with unspecified presence of clinical manifestation I70.203 ; Tinea unguium B35.1 ; Pain in right toe(s) M79.674 and Pain in left toe(s) M79.[address] [address] 12/15/2023 Sawyer Oliver Assessments Encounter Date Diagnosis (ICD Code) Assessment Notes Treatment Notes Treatment Clinical Notes Section Notes 12/10/2023 Tinea unguium (ICD-10 - B35.1) 03/17/2024 Atherosclerosis of [place] artery of both lower extremities, with unspecified presence of clinical manifestation (ICD-10 - I70.203) Q7(A), Q8(2B), Q9(1B,2C) 07/18/2024 Atherosclerosis of [place] artery of both lower extremities, with unspecified presence of clinical manifestation (ICD-10 - I70.203) Q7(A), Q8(2B), Q9(1B,2C) 07/18/2024 Tinea unguium (ICD-10 - B35.1) 12/10/2023 Pain in right toe(s) (ICD-10 - M79.674) 03/17/2024 Tinea unguium (ICD-10 - B35.1) 12/10/2023 Pain in left toe(s) (ICD-10 - M79.675) 03/17/2024 Pain in right toe(s) (ICD-10 - M79.674) 07/18/2024 Pain in right toe(s) (ICD-10 - M79.674) 07/18/2024 Pain in left toe(s) (ICD-10 - M79.675) 03/17/2024 Pain in left toe(s) (ICD-10 - M79.675) 12/10/2023 Hallux rigidus, right foot (ICD-10 - M20.21) 12/10/2023 Ingrowing nail (ICD-10 - L60.0) 12/10/2023 Unspecified atherosclerosis of [place] arteries of extremities, bilateral legs (ICD-10 - I70.203) 12/10/2023 Pain in left foot (ICD-10 - M79.672) 12/10/2023 Pain in right foot (ICD-10 - M79.671) Plan Of Treatment Pending Test Test Name Order Date X ray : Foot, left 3V 07/14/2013 91355-AMVETWB NAIL, 6 OR MORE 01/02/2016 91023-DCUFATJ NAIL, 6 OR MORE 04/14/2016 06497-LHNCAEL NAIL, 6 OR MORE 10/15/2016 71939-GFNKAYN NAIL, 6 OR MORE 01/14/2017 78234-QAVIIBL NAIL, 6 OR MORE 01/13/2018 72716-VBGBGEO NAIL, 6 OR MORE 04/15/2017 55131-QXMRBDQ NAIL, 6 OR MORE 07/15/2017 45180-VFEZTQA NAIL, 6 OR MORE 10/15/2017 86705-GCJKIZF NAIL, 6 OR MORE 03/17/2024 56666-AFGGPGV NAIL, 6 OR MORE 10/01/2015 83569-FZGXRRI NAIL, 6 OR MORE 07/18/2024 51514-Opdubtsi Plate 12/23/2010 58361-Uljbttby Plate 09/11/2014 71643-Bvvngbod Plate 12/07/2013 50228-Eoptpsnk Plate 09/01/2013 04142-Cehkwijt Plate 05/23/2013 76425-Ouguwizf Plate 01/31/2013 42932-Rmptzlqf Plate 10/25/2012 83566-Gwimeqrf Plate 10/20/2011 30340-Yrrfpvcx Plate 04/16/2011 95083-Oeixpqzr Plate 01/02/2016 31096-Wdbmiipq Plate 03/08/2014 27118-Mxpkbeow Plate 07/16/2011 50167-Gjidbodo Plate 01/26/2012 21520-Kpwzgjle Plate 04/26/2012 64048-Cgiphifm Plate 07/19/2012 05166-Ehgssmzx Plate 06/12/2014 36616-Twlyqnir Plate 12/21/2014 34362-Xshtdait Plate 03/21/2015 96230-Pwdirviy Plate 07/02/2015 72733-Sjpchaes Plate Each Additional 08/2014 36629-PFRK SKIN LESIONS, OVER 4 04/15/19 18 49843-MCRN SKIN LESIONS, OVER 4 03/17/19 25 35372-GGWD SKIN LESIONS, OVER 4 01/14/20 18 09035-FFLZ SKIN LESIONS, OVER 4 10/16/19 18 20473-RONG SKIN LESIONS, OVER 4 07/16/19 18 24350-ZHHD SKIN LESIONS, OVER 4 07/13/19 19 11419-FJXA SKIN LESIONS, OVER 4 10/12/19 19 01919-YLHJ SKIN LESIONS, OVER 4 01/11/20 19 53814-DIDH SKIN LESIONS, OVER 4 04/13/19 20 14159-TVOH SKIN LESIONS, OVER 4 07/18/19 93629-XABA SKIN LESIONS, OVER 4 10/17/19 74057-UPCG SKIN LESIONS, OVER 4 01/16/20 37599-RKFP SKIN LESIONS, OVER 4 04/25/19 21 27567-ASUS SKIN LESIONS, OVER 4 07/26/19 21 72399-BWGA SKIN LESIONS, OVER 4 10/25/19 21 74527-PNQJ SKIN LESIONS, OVER 4 01/10/20 21 64148-JXJV SKIN LESIONS, OVER 4 05/02/19 22 24662-TUYG SKIN LESIONS, OVER 4 04/12/19 19 21654-NJJY SKIN LESIONS, OVER 4 07/19/19 68250-FPZM SKIN LESIONS, 2 TO 4 09/10/19 Next Appt Details Provider Name:Maria Del Rosario Fontenot robert, 10/27/2024 09:00:00 AM, [address] [place] [address], [phone], Insurance Providers Payer Name Payer Address Payer Phone Subscriber Number Group Number Insured Name Patient Relationship to Insured Coverage Start Date Coverage End Date Medicare National [employer]t [employer] [address] [place] [address] [id number] Konstantin Razo Self - patient is the insured 2 [employer] [facility] [address] [place] [address] [id number] Konstantin Razo Self - patient is the insured Medical (General) History Medical History History ICD Code hypertension Basal cell carcinoma Squamous Cell Carcinoma Hyperlipidemia Surgical History Surgery Date(Month/Year) hernia repair 2010 ganglion cyst basal cell carcinoma 2005 Squamous cell 2006 Hospitalization History Reason Date(Month/Year) [facility]- cut finger- stiches 01/18
--- OUTSIDE RECORDS SUMMARY | 2024-10-24 12:46 | XMS_ITS ---
Author Name [facility] [[email or web address]]P Organization Unknown Results Test Name/Text Value Interpretation Date Range Source Ethanol SerPl-mCnc 196.0 mg/dL Above high normal 04/25/2024 - 11 [facility] Sodium SerPl-sCnc 139.0 mmol/L Normal 04/25/2024 136 - 14 5 [facility] Creat SerPl-mCnc 0.8 mg/dL Normal 04/25/2024 0.5 - 1.3 HH CCT AST SerPl-cCnc 27.0 U/L Normal 04/25/2024 10 - 55 [facility] T Glucose SerPl-mCnc 123.0 mg/dL Above high normal 04/25/2024 65 - 99 [facility] Albumin/Glob SerPl 1.7 Ratio Normal 04/25/2024 [facility] BUN SerPl-mCnc 16.0 mg/dL Normal 04/25/2024 8 - [address] Anion Gap Bld-sCnc 11.0 Normal 04/25/2024 7 - 17 [facility] CO2 SerPl-sCnc 29.0 mmol/L Normal 04/25/2024 22 - 33 HH CCT Potassium SerPl-sCnc 3.2 mmol/L Below low normal 04/25/2024 3.4 - 5.3 [facility]CT ALP SerPl-cCnc 56.0 U/L Normal 04/25/2024 45 - 128 [facility] T Prot SerPl-mCnc 6.9 g/dL Normal 04/25/2024 6.3 - 8.[address] GFR/BSA.pred SerPlBld OMT-VNP-IeAIyl 85.0 Normal 04/25/2024 59 - [facility]CT Bilirub SerPl-mCnc 0.4 mg/dL Normal 04/25/2024 0.2 - 1 [facility] Calcium SerPl-mCnc 8.9 mg/dL Normal 04/25/2024 8.7 - 10.5 [facility] Globulin Ser Calc-mCnc 2.6 g/dL Normal 04/25/2024 1.5 - 3.9 [facility]CT ALT SerPl-cCnc 16.0 U/L Normal 04/25/2024 10 - 55 [facility] T BUN/Creat SerPl 20.0 Ratio Normal 04/25/2024 10 - 25 HH CCT Albumin SerPl-mCnc 4.3 g/dL Normal 04/25/2024 3.4 - 4.8 [facility] Chloride SerPl-sCnc 99.0 mmol/L Normal 04/25/2024 98 - 10 7 [facility] Prothrombin time 11.7 seconds Normal 04/25/2024 10 - 13.5 [facility] INR PPP 1.0 Normal 04/25/2024 [facility] Anticoagulant NO ANTI COAGULANT MEDS Normal 04/25/2024 [facility] Monocytes/leuk NFr Bld Auto 4.9 % Normal 04/25/2024 [facility] RBC num Bld Auto 4.63 Mil/uL Normal 04/25/2024 4.5 - 6.2 [facility] Basophils/leuk NFr Bld Auto 0.5 % Normal 04/25/2024 [facility] MCV RBC Auto 93.0 fL Normal 04/25/2024 80 - 100 [facility] MCH RBC Qn Auto 31.5 pg Above high normal 04/25/2024 27 - 31 [facility] MCHC RBC Auto-mCnc 33.9 g/dL Normal 04/25/2024 30 - 36 [facility] Neutrophils/leuk NFr Bld Auto 68.5 % Normal 04/25/2024 [facility] Hgb Bld-mCnc 14.6 g/dL Normal 04/25/2024 13 - 17.7 [facility]CT Lymphocytes num Bld Auto 1.31 Thou/uL Below low normal 04/25/2024 1.5 - 4.5 [facility]CT RDW RBC Auto-Rto 12.1 % Normal 04/25/2024 11.5 - 14.5 [facility] PMV Bld Auto 9.3 fL Normal 04/25/2024 7.5 - 12.5 [facility] Hct VFr Bld Auto 43.1 % Normal 04/25/2024 39 - 54 HH CCT Platelet num Bld Auto 147.0 Thou/uL Below low normal 025 150 - 450 [facility] Neutrophils num Bld Auto 3.91 Thou/uL Normal 04/25/2024 2 - 7.5 [facility]CT Imm Granulocytes num Bld Auto 0.02 Thou/uL Normal 04/25/2024 0 - 0.1 [facility]CT Eosinophil/leuk NFr Bld Auto 2.8 % Normal 04/25/2024 [facility]CT Basophils num Bld Auto 0.03 Thou/uL Normal 04/25/2024 0 - 0.2 [facility]CT Lymphocytes/leuk NFr Bld Auto 22.9 % Normal 04/25/2024 [facility] Imm Granulocytes/leuk NFr Bld Auto 0.4 % Normal 04/25/2024 [facility]CT Monocytes num Bld Auto 0.28 Thou/uL Normal 04/25/2024 0.2 - 1.5 [facility]CT WBC num Bld Auto 5.7 Thou/uL Normal 04/25/2024 4 - 11 [facility]CT Eosinophil num Bld Auto 0.16 Thou/uL Normal 04/25/2024 0 - 0.7 [facility]CT RBC num/area UrnS HPF 0.0 per hpf Normal 04/25/2024 0 - 4 [facility] Bacteria UrnS Ql Micro Present Abnormal 04/25/2024 - CCT WBC num/area UrnS HPF 0.0 per hpf Normal 04/25/2024 0 - 4 [facility] Squamous num/area UrnS HPF 1.0 PER HPF Normal 04/25/2024 [facility]CT Nitrite Ur Ql Strip Negative Normal 04/25/2024 - CCT Bilirub Ur Strip-mCnc Negative Normal 04/25/2024 - CCT Prot Ur Strip-mCnc Negative Normal 04/25/2024 - CCT pH Ur Strip 6.0 Normal 04/25/2024 5 - 8 [facility]CT Ketones Ur Strip-mCnc Negative Normal 04/25/2024 - CCT Color Ur Straw Normal 04/25/2024 [facility]CT Clarity Ur Slightly cloudy Normal 04/25/2024 HH CCT Leukocyte esterase Ur Ql Strip Negative Normal 04/25/2024 - CCT Glucose Ur Strip-mCnc Negative Normal 04/25/2024 - CCT Sp Gr Ur Strip 1.005 Normal 04/25/2024 1.003 - 1.03 H HCCT Hgb Ur Ql Strip Small Abnormal 04/25/2024 - [facility] Encounters Encounter Type Encounter Reason Primary Diagnosis Location Date Emergency Alcohol abuse, uncomplicated Alcohol abuse, uncomplicated [facility] 04/25/2024 Care Team Organization Name Specialty Phone Email Start Date End Da te [facility] 05/11/2024 06/02/2024 [facility] 04/26/2024 [facility] NO PCP Primary Care 04/26/2024
== END 2024-10-24 12:28 | disposition home or self-care (01) ==
LOC: HO.HMCH 11:20
PROVIDERS: PCP Internal Medicine; Visit Provider Internal Medicine
DX: I10 Essential (primary) hypertension (principal); E78.5 Hyperlipidemia, unspecified; H91.93 Unspecified hearing loss, bilateral; F17.290 Nicotine dependence, other tobacco product, uncomplicated; H61.22 Impacted cerumen, left ear; Z98.890 Other specified postprocedural states; Z85.828 Personal history of other malignant neoplasm of skin

== ENCOUNTER → 2024-10-24 11:19 | Outpatient (BNVA) | payer MEDICARE, SELFPAY | PROVIDERS: PCP Internal Medicine; Visit Provider Internal Medicine | DX: I10 Essential (primary) hypertension (principal); E78.5 Hyperlipidemia, unspecified; H51.22 Internuclear ophthalmoplegia, left eye; H91.90 Unspecified hearing loss, unspecified ear; F17.290 Nicotine dependence, other tobacco product, uncomplicated; Z98.890 Other specified postprocedural states; Z85.828 Personal history of other malignant neoplasm of skin; Z71.6 Tobacco abuse counseling | CPT/HCPCS: 69210; 99212 ==